=== PATIENT | female | born 1940 | race Caucasian/White ===

== ENCOUNTER 2019-08-06 11:49 | Outpatient (CLI) | payer MEDICARE, OTHER, SELFPAY ==
[2019-08-06 12:39] LABS: Calcium 10.6 mg/Dl (8.8-10.2)
[2019-08-06 14:12] LABS: Calcium 10.7 mg/dL (8.8-10.2); Parathyroid Hormone 76.9 pg/mL (15-65)
== END 2019-08-06 11:50 | disposition home or self-care (01) ==
LOC: LAB 11:57
PROVIDERS: Family Provider Nurse Practitioner; PCP Family Medicine
DX: Z01.89 Encounter for other specified special examinations (principal)
CPT/HCPCS: 36415; 82310; 83970

== ENCOUNTER 2019-08-19 10:36 | Outpatient (REF) | payer MEDICARE, OTHER, SELFPAY ==
[2019-08-19 10:59] LABS: Basophils # 0.1 10^3/uL (0.0-0.1); Basophils % 1.1 %; Eosinophils # 0.3 10^3/uL (0.0-0.8); Eosinophils % 4.5 %; Hemoglobin 12.7 g/dL (11.5-15.3); Lymphocytes # 2.2 10^3/uL (0.8-4.8); Lymphocytes % 35.1 %; Mean Corpuscular HGB Conc 32.6 g/dL (30.0-36.0); Mean Corpuscular Hemoglobin 26.8 pg (28.0-34.0); Mean Corpuscular Volume 82.5 fL (81-99); Mean Platelet Volume 10.6 fL (7.4-10.4); Monocytes # 0.5 10^3/uL (0.2-0.9); Monocytes % 7.8 %; Neutrophils # 3.2 10^3/uL (1.8-7.7); Neutrophils % 51.3 %; Nucleated Red Blood Cells % 0 %; Platelet Count 293 10^3/cmm (130-400); Red Blood Count 4.73 10^6/uL (4.1-5.3); Red Cell Distribution Width 15.4 % (12.1-15.1); White Blood Count 6.2 10^3/uL (4.0-10.0)
[2019-08-19 11:23] LABS: Anion Gap 16.3 (5-19); Blood Urea Nitrogen 25 mg/dL (8-23); Calcium 10.4 mg/Dl (8.8-10.2); Carbon Dioxide 25 mmol/L (22-29); Chloride 102 mmol/L (98-107); Glucose 180 mg/dL (74-106); Potassium 4.3 mmol/L (3.5-5.1); Sodium 139 mmol/L (136-145)
== END 2019-08-19 10:37 | disposition home or self-care (01) ==
LOC: LAB 10:36
PROVIDERS: Family Provider Nurse Practitioner; PCP Family Medicine; Visit Provider Family Medicine
DX: Z01.89 Encounter for other specified special examinations (principal)
CPT/HCPCS: 80048; 85025

== ENCOUNTER 2019-09-02 15:04 | Inpatient (IN) | payer MEDICARE, OTHER, SELFPAY ==
--- NOTE | 2019-09-02 15:13 | ED_ITS ---
Entered by Marry Hobbs, acting as scribe for HPI - General Adult General: Chief complaint: Neck Pain/Injury Stated complaint: POST OP INFECTION Time Seen by Provider: 09/02/19 15:09 Source: patient, family, EMS and RN notes reviewed Mode of arrival: EMS Limitations: no limitations History of Present Illness: HPI narrative: 79 yo female presents to ED with complaints of weakness. The patient had her thyroid and parathyroid removed 5 days ago at [facility] and her [id number] noticed she was weak and had what looks like infection draining around the patient's CHANTEL drain on the R side of her neck. The DIL said she was fine up until today. The DIL said anytime the patient gets an infection it will bother the patient's knees and make it to wher e she is unable to walk. The patient's oxygen was low (88) upon EMS arrival. The patient is not normally on oxygen. MD complaint: post op infection Onset (ago): hour(s) (this morning) Location: neck Radiation: non-radiation Severity: moderate Quality: dull and constant Pain Consistency: constant Relieving factors: none Exacerbating factors: none Associated symptoms: Reports weakness; Deny chest pain, confusion, diaphoresis, dyspnea, headache(s), malaise, nausea, rash, palpitations, syncope or vomiting Treatments prior to arrival: none Review of Systems General: Reports: other (negative unless marked) Const: Denies: fever, chills, body aches, fatigue, malaise or diaphoresis Eyes: Denies: change in vision or blurry vision ENMT: Denies: throat pain, painful swallowing, hoarseness, ear pain, ear discharge, Change in hearing or nasal discharge Card: Denies: chest pain, palpitations, irregular heart rhythm, syncope, pre- syncope, shortness of breath on exertion or shortness of breath when lying down Resp: Denies: shortness of breath, productive cough, non-productive cough, wheezing, coughing up blood or chest congestion GI: Denies: abdominal pain, nausea, vomiting, vomiting blood, coffee grounds in vomit, diarrhea, constipation, cramping, blood in stool or black tarry stool : Denies: flank pain, painful urination, urinary frequency, urinary urgency, decreased urine ouput, urinary incontinence or blood in urine Musc: Denies: neck pain, back pain, extremity pain, extremity swelling, joint pain, joint swelling, joint warmth or joint stiffness Skin/Breast: Denies: rash, skin tenderness or yellow skin Neuro: Denies: headache, numbness in extremities, changes in sensation, lack of coordination, difficulty walking, dizziness, vertigo or confusion Endo: Denies: excessive thirst, tired all the time, cold intolerance, excessive sweating, flushing or hot flashes Alex/Lymph: Denies: easy bruising, easy bleeding, petechiae or enlarged lymph nodes All/Imm: Denies: hives, throat swelling, tongue swelling, facial swelling or acute wheezing Physical Exam Const: COMMON NORMALS: no apparent distress, oriented x3, no limitations, healthy appearing and well nourished EXAM LIMITATIONS: no altered mental status GENERAL APPEARANCE: cooperative, well kempt and well developed ORIENTATION/CONSCIOUSNESS: Yes awake HENMT: COMMON NORMALS: normocephalic, head/scalp atraumatic, hearing grossly normal bilaterally, external ears normal, EAC's normal, external nose normal and moist oral mucous membranes HEAD & SCALP: normal to inspection, normocephalic and atraumatic FACE & SINUS: normal facial exam and face symmetric NOSE: external nose normal and nares normal EXTERNAL EAR: Yes external ears normal EXTERNAL AUDITORY CANAL: EAC's normal MOUTH: oral and palatal mucosa normal and tongue normal Eye: COMMON NORMALS: PERRL, EOMs intact bilaterally, conjunctivae normal and no scleral icterus GENERAL EYE: normal appearance of both eyes and normal light reflex CONJUNCTIVA: Yes conjunctivae normal SCLERA: sclerae normal CORNEA: Yes corneas normal PUPIL: Yes PERRL DIRECT OPHTHALMOSCOPY: Yes normal light reflex Neck/C-Spine: COMMON NORMALS: full ROM, no lymphadenopathy, supple, no meningeal signs and no JVD GENERAL: Yes normal visual inspection and Yes trachea midline THYROID: other (Incision site with localized erythema and minimal drainage. No crepitance or a large amount of drainage from the area. Drain itself looks good with only mild bloody serosanguineous drainage in the tu manuel.) CERVICAL SPINE: Yes cervical ROM normal Chest: COMMONS NORMALS: inspection of chest normal and palpation of chest normal Resp: COMMON NORMALS: normal respiratory effort, no retractions, no use of accessory muscles and clear to auscultation bilaterally EFFORT & INSPECTION: Yes able to speak in complete sentences AUSCULTATION: clear to auscultation bilaterally Cardio: COMMON NORMALS: no JVD, regular rate, regular rhythm, S1 normal heart sound, S2 normal heart sound, no gallops, no clicks, no murmurs and no rub JUGULAR VENOUS DISTENTION: no JVD RATE: regular rate RHYTHM: regular rhythm HEART SOUNDS: S1 normal and S2 normal GI: COMMON NORMALS: soft to palpation, non-tender, no hepatosplenomegaly and no masses INSPECTION: Yes normal to inspection PALPATION: Yes soft and Yes no hepatosplenomegaly : COMMON NORMALS: Yes no CVA tenderness BLADDER/KIDNEY EXAM: Yes no CVA tenderness Back/Pelvis: COMMON NORMALS: no CVA tenderness, thoracic and lumbar spine normal to inspection, no thoracic nor lumbar tenderness and thoraco-lumbar ROM normal Extremity: COMMON NORMALS: normal to inspection, full ROM, normal capillary refill, no joint enlargement, no clubbing, cyanosis or edema and no calf tenderness Neuro: COMMON NORMALS: oriented x3, CN's II-XII intact bilaterally, moves all extremities, no focal motor deficits and no sensory deficits noted MENINGEAL SIGNS: Yes no meningeal signs Psych: COMMON NORMALS: mental status grossly normal, thought process normal, cooperative, affect normal, speech normal and activity/motor behavior normal APPEARANCE: Yes well kempt SPEECH: Yes normal speech THOUGHT PROCESS: normal thought process Skin: COMMON NORMALS: no rashes or lesions noted, skin turgor normal, no jaundice, no petechiae and no mottling GENERAL SKIN EXAM: no rashes or lesions noted and turgor normal Course Vital Signs: Vital signs: Vital Signs Temperature 98.3 F 09/02/19 15:17 Pulse Rate 78 09/02/19 21:30 Respiratory Rate 18 09/02/19 22:57 Blood Pressure 205/87 09/02/19 21:30 Pulse Oximetry 94 09/02/19 22:57 MDM - General Adult MDM Narrative: Medical decision making narrative: The case was discussed with Dr. Mast, on-call for ENT. He states they have no availability to take the patient. The patient will need to be hospitalized here and can have ENT consult here as she was referred from Dr. Ochoa. I reviewed this plan with Dr. Swann who is in agreement. The patient is primary problem seems to be pneumonia but we will have ENT look at the patient as well. Further care be dictated by Dr. Swann. Lab Data: Labs: Lab Results 09/02/19 09/02/19 09/02/19 Range/Units 15:40 15:40 15:40 WBC 13.2 H (4.0-10.0) 10^3/ uL RBC 4.49 (4.1-5.3) 10^6/u L Hgb 11.7 (11.5-15.3) g/dL Hct 36.8 L (37.0-47.0) % MCV 82.0 (81-99) fL MCH 26.1 L (28.0-34.0) pg MCHC 31.8 (30.0-36.0) g/dL RDW 15.1 (12.1-15.1) % Plt Count 602 H (130-400) 10^3/c mm MPV 9.8 (7.4-10.4) fL Neut % (Auto) 77.6 % Lymph % (Auto) 11.8 % Parmer % (Auto) 8.6 % Eos % (Auto) 0.8 % Baso % (Auto) 0.4 % Neut # (Auto) 10.3 H (1.8-7.7) 10^3/u L Lymph # (Auto) 1.6 (0.8-4.8) 10^3/u L Parmer # (Auto) 1.1 H (0.2-0.9) 10^3/u L Eos # (Auto) 0.1 (0.0-0.8) 10^3/u L Baso # (Auto) 0.1 (0.0-0.1) 10^3/u L Nucleated RBC % (a uto) 0 % Nucleated RBCs # 0.0 /100WBC D-Dimer (0-0.59) ug/mIFE U Specimen Type Sample Site ABG pH (7.35-7.45) ABG pCO2 (35-45) mmHg ABG pO2 (80.0-100.0) mmH g ABG HCO3 (22-26) mmol/L ABG Base Excess (-2.0-2.0) mmol/ L Anibal Test Hematocrit (37-47) % O2 Delivery Device O2 Liters/Min % FiO2 % Palliative Care Physician ID Sodium 129 L (136-145) mmol/L Potassium 4.1 (3.5-5.1) mmol/L Chloride 93 L (98-107) mmol/L Carbon Dioxide 21 L (22-29) mmol/L Anion Gap 19.1 H (5-19) BUN 30 H (8-23) mg/dL Creatinine 1.5 H (0.5-0.9) mg/dL Glucose 415 H (65-115) mg/dL Lactic Acid 1.7 (0.5-2.2) mmol/L Calcium 7.2 L (8.5-10.5) mg/dL Total Bilirubin 0.3 (0.15-1.2) mg/dL AST 117 H (0-32) U/L ALT 68 H (0-33) U/L Alkaline Phosphata se 172 H (35-105) IU/L Total Protein 7.3 (6.6-8.7) g/dL Albumin 2.9 L (3.5-5.2) g/dL Globulin 4.4 (1.3-4.6) g/dL Urine Color (Yellow) Urine Appearance (CLEAR) Urine pH (5-7) Ur Specific Gravit y (1.005-1.030) Urine Protein (Negative) Urine Glucose (UA) (Normal) Urine Ketones (Negative) Urine Occult Blood (Negative) Urine Nitrate (Negative) Urine Bilirubin (NEGATIVE) Urine Urobilinogen (Negative) mg/dL Ur Leukocyte Maribel ase (Negative) Urine RBC (0-2) /hpf Urine WBC (0-5) /hpf Ur Squamous Epith Cells (0-5) Amorphous Sediment Urine Bacteria (NONE) Influenza Type A A g (Negative) POC Influenza B Ag (Negative) 09/02/19 09/02/19 09/02/19 Range/Units 15:40 16:17 16:31 WBC (4.0-10.0) 10^3/ uL RBC (4.1-5.3) 10^6/u L Hgb (11.5-15.3) g/dL Hct (37.0-47.0) % MCV (81-99) fL MCH (28.0-34.0) pg MCHC (30.0-36.0) g/dL RDW (12.1-15.1) % Plt Count (130-400) 10^3/c mm MPV (7.4-10.4) fL Neut % (Auto) % Lymph % (Auto) % Parmer % (Auto) % Eos % (Auto) % Baso % (Auto) % Neut # (Auto) (1.8-7.7) 10^3/u L Lymph # (Auto) (0.8-4.8) 10^3/u L Parmer # (Auto) (0.2-0.9) 10^3/u L Eos # (Auto) (0.0-0.8) 10^3/u L Baso # (Auto) (0.0-0.1) 10^3/u L Nucleated RBC % (a uto) % Nucleated RBCs # /100WBC D-Dimer 4.24 H (0-0.59) ug/mIFE U Specimen Type Arterial Sample Site Radial, left ABG pH 7.52 H (7.35-7.45) ABG pCO2 27.2 L (35-45) mmHg ABG pO2 61.9 L (80.0-100.0) mmH g ABG HCO3 22.2 (22-26) mmol/L ABG Base Excess 0.3 (-2.0-2.0) mmol/ L Anibal Test Pos Hematocrit 36.6 L (37-47) % O2 Delivery Device Nc O2 Liters/Min 1.5 % FiO2 26.0 % Palliative Care Physician ID cak Sodium (136-145) mmol/L Potassium (3.5-5.1) mmol/L Chloride (98-107) mmol/L Carbon Dioxide (22-29) mmol/L Anion Gap (5-19) BUN (8-23) mg/dL Creatinine (0.5-0.9) mg/dL Glucose (65-115) mg/dL Lactic Acid (0.5-2.2) mmol/L Calcium (8.5-10.5) mg/dL Total Bilirubin (0.15-1.2) mg/dL AST (0-32) U/L ALT (0-33) U/L Alkaline Phosphata se (35-105) IU/L Total Protein (6.6-8.7) g/dL Albumin (3.5-5.2) g/dL Globulin (1.3-4.6) g/dL Urine Color Yellow (Yellow) Urine Appearance Sl hazy (CLEAR) Urine pH 5 (5-7) Ur Specific Gravit y 1.010 (1.005-1.030) Urine Protein Neg (Negative) Urine Glucose (UA) 2+ (Normal) Urine Ketones Negative (Negative) Urine Occult Blood Neg (Negative) Urine Nitrate Negative (Negative) Urine Bilirubin Neg (NEGATIVE) Urine Urobilinogen Norm (Negative) mg/dL Ur Leukocyte Maribel ase Negative (Negative) Urine RBC None (0-2) /hpf Urine WBC None (0-5) /hpf Ur Squamous Epith Cells 5-10 H (0-5) Amorphous Sediment 2+ Urine Bacteria 1+ H (NONE) Influenza Type A A g (Negative) POC Influenza B Ag (Negative) 09/02/19 Range/Units 17:37 WBC (4.0-10.0) 10^3/ uL RBC (4.1-5.3) 10^6/u L Hgb (11.5-15.3) g/dL Hct (37.0-47.0) % MCV (81-99) fL MCH (28.0-34.0) pg MCHC (30.0-36.0) g/dL RDW (12.1-15.1) % Plt Count (130-400) 10^3/c mm MPV (7.4-10.4) fL Neut % (Auto) % Lymph % (Auto) % Parmer % (Auto) % Eos % (Auto) % Baso % (Auto) % Neut # (Auto) (1.8-7.7) 10^3/u L Lymph # (Auto) (0.8-4.8) 10^3/u L Parmer # (Auto) (0.2-0.9) 10^3/u L Eos # (Auto) (0.0-0.8) 10^3/u L Baso # (Auto) (0.0-0.1) 10^3/u L Nucleated RBC % (a uto) % Nucleated RBCs # /100WBC D-Dimer (0-0.59) ug/mIFE U Specimen Type Sample Site ABG pH (7.35-7.45) ABG pCO2 (35-45) mmHg ABG pO2 (80.0-100.0) mmH g ABG HCO3 (22-26) mmol/L ABG Base Excess (-2.0-2.0) mmol/ L Anibal Test Hematocrit (37-47) % O2 Delivery Device O2 Liters/Min % FiO2 % Palliative Care Physician ID Sodium (136-145) mmol/L Potassium (3.5-5.1) mmol/L Chloride (98-107) mmol/L Carbon Dioxide (22-29) mmol/L Anion Gap (5-19) BUN (8-23) mg/dL Creatinine (0.5-0.9) mg/dL Glucose (65-115) mg/dL Lactic Acid (0.5-2.2) mmol/L Calcium (8.5-10.5) mg/dL Total Bilirubin (0.15-1.2) mg/dL AST (0-32) U/L ALT (0-33) U/L Alkaline Phosphata se (35-105) IU/L Total Protein (6.6-8.7) g/dL Albumin (3.5-5.2) g/dL Globulin (1.3-4.6) g/dL Urine Color (Yellow) Urine Appearance (CLEAR) Urine pH (5-7) Ur Specific Gravit y (1.005-1.030) Urine Protein (Negative) Urine Glucose (UA) (Normal) Urine Ketones (Negative) Urine Occult Blood (Negative) Urine Nitrate (Negative) Urine Bilirubin (NEGATIVE) Urine Urobilinogen (Negative) mg/dL Ur Leukocyte Maribel ase (Negative) Urine RBC (0-2) /hpf Urine WBC (0-5) /hpf Ur Squamous Epith Cells (0-5) Amorphous Sediment Urine Bacteria (NONE) Influenza Type A A g Negative (Negative) POC Influenza B Ag Negative (Negative) Imaging Data^: CXR: Radiologist's impression: [address] [address] XRay Report Signed Patient: Jonnie Freitas #: [id number] : 1940Acct#:[id number] Age/Sex: 79 / FADM Date: 09/02/19 Loc: [facility]oom/Bed: Attending Dr: Ordering Provider/Ordering MD: Mayda German DO Date of Service: 09/02/19 Procedure(s): XR chest 1V portable [id number] Accession Number(s): [id number] Report Number: [id number] WS: [id number] CHEST XRAY TECHNIQUE: Portable chest. CLINICAL INFORMATION: cough COMPARISON: June 24, 2018 FINDINGS: Heart: Cardiomegaly with tortuous thoracic aorta. Right paratracheal mass me asuring 2.7 cm. Lungs: Chronic emphysematous changes. Slight bibasilar atelectasis. No focal pneumonia. Bones: Osteopenia. XR/XR chest 1V portable [id number] IMPRESSION: 1. Right paratracheal mass or lymphadenopathy measuring 1.9 cm appears similar to radiograph June 24, 2018. This can be followed up with chest CT. 2. Chronic emphysematous changes. No acute pulmonary infiltrates. 3. Slight bibasilar atelectasis. 4. Prior bilateral mastectomies. Dictated By:Oscar Osman MD Signed By:Oscar Osman MDSigned Date/Time:09/02/19 1557 DD/ CT Abd/Pel: Radiologist's impression: [place] [address] CT Scan Report Signed Patient: Jonnie Freitas #: [id number] : 1Acct#:[id number] Age/Sex: 79 / FADM Date: 09/02/19 Loc: [facility]/Bed: Attending Dr: Ordering Provider/Ordering MD: Mayda German DO Date of Service: 09/02/19 Procedure(s): CT angio chest w abd pel w con Accession Number(s): [id number] Report Number: [id number] PROCEDURE INFORMATION: Exam: CT Angiography Chest With Contrast Exam date and time: 09/02/2019 8:11 PM Age: 79 years old Clinical indication: Abdominal tenderness; Shortness of breath; Prior surgery; Surgery date: 3-7 days post-operative; Surgery type: Thyroid; Additional info: Dyspnea/postive d-dimer TECHNIQUE: Imaging protocol: Computed tomographic angiography of the chest with intravenous contrast. 3D rendering: MIP and/or 3D reconstructed images were created by the technologist. Total DLP: 1643 mGy-cm Radiation optimization: All CT scans at this facility use at least one of these dose optimization techniques: automated exposure control; mA and/or kV adjustment per patient size (includes targeted exams where dose is matched to clinical indication); or iterative reconstruction. Contrast material: VISI 320; Contrast volume: 95 ml; Contrast route: IV; COMPARISON: CT chest w con* [id number] 02/06/2019 2:11 PM FINDINGS: Pulmonary arteries: Normal. No pulmonary emboli. Aorta: Unremarkable. No aortic aneurysm. No aortic dissection. Lungs: There is bilateral lower lobe lung consolidation. No dominant lung mass. Pleural space: Unremarkable. No pneumothorax. No pleural effusion. Heart: Cardiomegaly is identified. Lymph nodes: Unremarkable. No enlarged lymph nodes. Bones/joints: Degenerative change is identified in the spine. There is no evidence for acute fracture or malalignment. Soft tissues: Unremarkable. IMPRESSION: There is no evidence for a pulmonary embolus. There is bilateral lower lobe lung consolidation consistent with atelectasis and/or pneumonia. PROCEDURE INFORMATION: Exam: CT Abdomen And Pelvis With Contrast Exam date and time: 09/02/2019 8:11 PM Age: 79 years old Clinical indication: Abdominal tenderness; Shortness of breath; Prior surgery; Surgery date: 3-7 days post-operative; Surgery type: Thyroid; Additional info: Dyspnea/postive d-dimer TECHNIQUE: Imaging protocol: Computed tomography of the abdomen and pelvis with intravenous contrast. Total DLP: 1643 mGy-cm Radiation optimization: All CT scans at this facility use at least one of these dose optimization techniques: automated exposure control; mA and/or kV adjustment per patient size (includes targeted exams where dose is matched to clinical indication); or iterative reconstruction. Contrast material: VISI 320; Contrast volume: 95 ml; Contrast route: IV; COMPARISON: CT chest w con* [id number] 02/06/2019 2:11 PM FINDINGS: Liver: Normal. No mass. Gallbladder and bile ducts: Gallstones are identified although there are no CT findings to suggest cholecystitis. Pancreas: Normal. No ductal dilation. Spleen: Normal. No splenomegaly. Adrenals: Normal. No mass. Kidneys and ureters: There is dilation of the bilateral renal pelvis and renal calices. No obstructing ureteral mass or calcification. Stomach and bowel: There is stool throughout the colon. No bowel obstruction or wall thickening. Appendix: The appendix is visualized and appears normal. Intraperitoneal space: Unremarkable. No free air. No significant fluid collection. Vasculature: Unremarkable. No abdominal aortic aneurysm. Lymph nodes: Unremarkable. No enlarged lymph nodes. Bladder: The bladder is moderately distended. No bladder mass or calcification. Reproductive: There has been a hysterectomy. Bones/joints: Degenerative change is identified in the spine. There is no evidence for acute fracture or malalignment. Soft tissues: Unremarkable. CT/CT angio chest w abd pel w con IMPRESSION: There is dilation of the bilateral renal pelvis and renal calices. This may be secondary to the moderately distended bladder.Clinical correlation is advised. Radiation Dose CTDIVOL = (mGy): DLP = 1643~1643 (mGy-cm) Dictated By:Carolin Mays MD Signed By:Carolin Mays MDSigned Date/Time:09/02/192142 DD/ Discharge Plan Discharge Patient Disposition: Placed in Observation Admit Provider: Joaquim Swann Clinical Impression: Sepsis, Pneumonia Condition: Stable Coding Level of Care Code ED Relay Checker for g Fwd The documentation recorded by the Anjel hollye Valerie R, accurately reflects the service I personally performed and the decisions made by Maxi maradiaga Eli N Sep 02, 2019 15:04
[2019-09-02 15:17] VITALS: BP 157/66; PULSE 79; RESP 24; TEMP 36.8; O2SAT 96; BMI 28.0
--- NOTE | 2019-09-02 15:17 | XR_ITS ---
WS: [id number] CHEST XRAY TECHNIQUE: Portable chest. CLINICAL INFORMATION: cough COMPARISON: June 24, 2018 FINDINGS: Heart: Cardiomegaly with tortuous thoracic aorta. Right paratracheal mass measuring 2.7 cm. Lungs: Chronic emphysematous changes. Slight bibasilar atelectasis. No focal pneumonia. Bones: Osteopenia. XR/XR chest 1V portable [id number] IMPRESSION: 1. Right paratracheal mass or lymphadenopathy measuring 1.9 cm appears similar to radiograph June 24, 2018. This can be followed up with chest CT. 2. Chronic emphysematous changes. No acute pulmonary infiltrates. 3. Slight bibasilar atelectasis. 4. Prior bilateral mastectomies.
[2019-09-02 15:46] LABS: Basophils # 0.1 10^3/uL (0.0-0.1); Basophils % 0.4 %; Eosinophils # 0.1 10^3/uL (0.0-0.8); Eosinophils % 0.8 %; Hematocrit 36.8 % (37.0-47.0); Hemoglobin 11.7 g/dL (11.5-15.3); Lymphocytes # 1.6 10^3/uL (0.8-4.8); Lymphocytes % 11.8 %; Mean Corpuscular HGB Conc 31.8 g/dL (30.0-36.0); Mean Corpuscular Hemoglobin 26.1 pg (28.0-34.0); Mean Platelet Volume 9.8 fL (7.4-10.4); Monocytes # 1.1 10^3/uL (0.2-0.9); Monocytes % 8.6 %; Neutrophils # 10.3 10^3/uL (1.8-7.7); Neutrophils % 77.6 %; Nucleated Red Blood Cells % 0 %; Platelet Count 602 10^3/cmm (130-400); Red Blood Count 4.49 10^6/uL (4.1-5.3); Red Cell Distribution Width 15.1 % (12.1-15.1); White Blood Count 13.2 10^3/uL (4.0-10.0)
[2019-09-02 16:02] LABS: Alanine Aminotransferase 68 U/L (0-33); Albumin Level 2.9 g/dL (3.5-5.2); Alkaline Phosphatase 172 IU/L (35-105); Anion Gap 19.1 (5-19); Aspartate Amino Transferase 117 U/L (0-32); Blood Urea Nitrogen 30 mg/dL (8-23); Calcium 7.2 mg/dL (8.5-10.5); Carbon Dioxide 21 mmol/L (22-29); Chloride 93 mmol/L (98-107); Globulin 4.4 g/dL (1.3-4.6); Potassium 4.1 mmol/L (3.5-5.1); Sodium 129 mmol/L (136-145); Total Bilirubin 0.3 mg/dL (0.15-1.2); Total Protein 7.3 g/dL (6.6-8.7)
[2019-09-02 16:03] LABS: Lactic Sepsis W/Reflex 1.7 mmol/L (0.5-2.2)
[2019-09-02 16:20] LABS: D Dimer 4.24 ug/mIFEU (0-0.59)
[2019-09-02 16:42] LABS: ABG PCO2 27.2 mmHg (35-45); ABG PH Result 7.52 (7.35-7.45); Arterial Blood Gas Hematocrit 36.6 % (37-47); Base Excess ABG 0.3 mmol/L (-2.0-2.0); Blood Gas Allen Test Pos; Blood Gas LPM 1.5 %; Blood Gas Sample Site Radial, left; Blood Gas Sample Type Arterial; HCO3 ABG 22.2 mmol/L (22-26); Oxygen Device NC; PO2 ABG 61.9 mmHg (80.0-100.0)
[2019-09-02 18:31] LABS: Bilirubin Urine Neg (NEGATIVE); Blood Urine Neg (Negative); Glucose Urine UA 2+ (Normal); Ketones Urine Negative (Negative); Leukocyte Esterase Urine Negative (Negative); Nitrate Urine Negative (Negative); Protein Urine Neg (Negative); Urine Appearance SL Hazy (CLEAR); Urine Color Yellow (Yellow); Urobilinogen Urine Norm (Negative); pH Urine 5 (5-7)
--- NOTE | 2019-09-02 18:34 | CTR_ITS ---
PROCEDURE INFORMATION: Exam: CT Angiography Chest With Contrast Exam date and time: 09/02/2019 8:11 PM Age: 79 years old Clinical indication: Abdominal tenderness; Shortness of breath; Prior surgery; Surgery date: 3-7 days post-operative; Surgery type: Thyroid; Additional info: Dyspnea/postive d-dimer TECHNIQUE: Imaging protocol: Computed tomographic angiography of the chest with intravenous contrast. 3D rendering: MIP and/or 3D reconstructed images were created by the technologist. Total DLP: 1643 mGy-cm Radiation optimization: All CT scans at this facility use at least one of these dose optimization techniques: automated exposure control; mA and/or kV adjustment per patient size (includes targeted exams where dose is matched to clinical indication); or iterative reconstruction. Contrast material: VISI 320; Contrast volume: 95 ml; Contrast route: IV; COMPARISON: CT chest w con* [id number] 02/06/2019 2:11 PM FINDINGS: Pulmonary arteries: Normal. No pulmonary emboli. Aorta: Unremarkable. No aortic aneurysm. No aortic dissection. Lungs: There is bilateral lower lobe lung consolidation. No dominant lung mass. Pleural space: Unremarkable. No pneumothorax. No pleural effusion. Heart: Cardiomegaly is identified. Lymph nodes: Unremarkable. No enlarged lymph nodes. Bones/joints: Degenerative change is identified in the spine. There is no evidence for acute fracture or malalignment. Soft tissues: Unremarkable. IMPRESSION: There is no evidence for a pulmonary embolus. There is bilateral lower lobe lung consolidation consistent with atelectasis and/or pneumonia. PROCEDURE INFORMATION: Exam: CT Abdomen And Pelvis With Contrast Exam date and time: 09/02/2019 8:11 PM Age: 79 years old Clinical indication: Abdominal tenderness; Shortness of breath; Prior surgery; Surgery date: 3-7 days post-operative; Surgery type: Thyroid; Additional info: Dyspnea/postive d-dimer TECHNIQUE: Imaging protocol: Computed tomography of the abdomen and pelvis with intravenous contrast. Total DLP: 1643 mGy-cm Radiation optimization: All CT scans at this facility use at least one of these dose optimization techniques: automated exposure control; mA and/or kV adjustment per patient size (includes targeted exams where dose is matched to clinical indication); or iterative reconstruction. Contrast material: VISI 320; Contrast volume: 95 ml; Contrast route: IV; COMPARISON: CT chest w con* [id number] 02/06/2019 2:11 PM FINDINGS: Liver: Normal. No mass. Gallbladder and bile ducts: Gallstones are identified although there are no CT findings to suggest cholecystitis. Pancreas: Normal. No ductal dilation. Spleen: Normal. No splenomegaly. Adrenals: Normal. No mass. Kidneys and ureters: There is dilation of the bilateral renal pelvis and renal calices. No obstructing ureteral mass or calcification. Stomach and bowel: There is stool throughout the colon. No bowel obstruction or wall thickening. Appendix: The appendix is visualized and appears normal. Intraperitoneal space: Unremarkable. No free air. No significant fluid collection. Vasculature: Unremarkable. No abdominal aortic aneurysm. Lymph nodes: Unremarkable. No enlarged lymph nodes. Bladder: The bladder is moderately distended. No bladder mass or calcification. Reproductive: There has been a hysterectomy. Bones/joints: Degenerative change is identified in the spine. There is no evidence for acute fracture or malalignment. Soft tissues: Unremarkable. CT/CT angio chest w abd pel w con IMPRESSION: There is dilation of the bilateral renal pelvis and renal calices. This may be secondary to the moderately distended bladder.Clinical correlation is advised. Radiation Dose CTDIVOL = (mGy): DLP = 1643~1643 (mGy-cm)
--- NOTE | 2019-09-02 18:35 | US_ITS ---
WS: [id number] RIGHT UPPER QUADRANT ULTRASOUND HISTORY: Pain COMPARISON: CT 09/02/2019 Liver: 19.7 cm in length. Liver is moderately enlarged with hepatic steatosis. No mass or bile duct d ilatation. Gallbladder: Gallbladder is poorly visualized. On the recent CT there is a large stone in the gallbla dder which could be obscuring the lumen of the gallbladder. CBD: 2.9 mm Pancreas: Head and tail are not visualized. The body is normal. Right kidney: 10.0 cm in length. Normal echogenicity with no mass or hydronephrosis. Aorta and IVC: Unremarkable. No ascites. US/US gall bladder [id number] IMPRESSION: 1. Gallbladder is not identified by ultrasound. On the CT of 09/02/2019 gallblad martina is present with a large stone. Stone may be obscuring the ultrasound evalua tion. 2. Mild hepatic steatosis and hepatomegaly.
[2019-09-02 18:40] LABS: Add Urine Culture? No; Amorphous Sediment Urine 2+; Bacteria Urine 1+
[2019-09-02 18:46] LABS: Influenza A by IFA Negative (Negative); Influenza B by IFA Negative (Negative)
[2019-09-02 19:38] VITALS: BP 159/70; PULSE 75; RESP 25; O2SAT 93
[2019-09-02] MEDS: cefepime 2,000 MG in sodium chloride 0.9% (plus) 50 ML 100 MG IV (19:54)
[2019-09-02] MEDS: sodium chloride 0.9% 1,000 ML 999 ML IV (19:55)
[2019-09-02] MEDS: vancomycin 1,000 MG in sodium chloride 0.9% 250 ML 166 MG IV (20:17)
[2019-09-02] MEDS: iodixanol 320 mg/mL 100mL Btl 95 ML IV (21:01)
[2019-09-02 21:30] VITALS: BP 205/87; PULSE 78; RESP 18; RESP 22; O2SAT 92
[2019-09-02] MEDS: morphine 4 mg/mL SDV 1 mL IVP (21:30)
[2019-09-02] MEDS: ondansetron 2 mg/ML SDV 2 mL 4 MG IVP (21:30)
[2019-09-02] MEDS: calcium gluconate 0.1 gm/mL 10% SDV 10mL 1 GM IVP (22:05)
--- NOTE | 2019-09-02 22:46 | ECG_ITS ---
Measurements Intervals [place] Rate: 74 P: 38 TN: 204 QRS: -37 QRSD: 98 T: -31 QT: 406 QTc: 451 SINUS RHYTHM LEFT AXIS DEVIATION [QRS AXIS < -30] INCOMPLETE RIGHT BUNDLE BRANCH BLOCK [90+ ms QRS DURATION, TERMINAL R IN V1/V2, 40+ ms S IN I/aVL/V4/V5/V6] NONSPECIFIC ST & T-WAVE ABNORMALITY Compared to ECG 03/17/2019 11:58:09 Left ventricular hypertrophy no longer present Possible ischemia no longer present T-wave abnormality still present Electronically Signed On 09-03-2019 9:28:33 RETAIL TRAINING MANAGER by Danie Mi M.D. [id number] peterson
[2019-09-02 22:57] VITALS: RESP 18; O2SAT 94
[2019-09-02] MEDS: HYDROmorphone 1 mg/mL INJ 1 mL 0.5 MG IVP (22:57)
[2019-09-02 23:21] VITALS: BP 159/90; PULSE 74; RESP 19; TEMP 37.4; O2SAT 95
[2019-09-02 23:29] LABS: Troponin(5th) Baseline 45 ng/mL (0-10)
[2019-09-02 23:56] VITALS: BP 168/76; PULSE 71; RESP 24; TEMP 36.9; O2SAT 91
[2019-09-03] VITALS (9 sets, daily range): BP systolic 97–159; BP diastolic 46–65; PULSE 53–77; RESP 12–29; TEMP 36.6–36.9; O2SAT 91–95
--- NOTE | 2019-09-03 00:23 | PM.HP ---
Providers/Chief Complaint Admitting Physician: Joaquim Swann MD Primary Care Provider: Onel Rodriguez DO Chief Complaint: Sepsis;Pneumonia:hypoxia History of Present Illness Brandy Freitas is a 79 year old female with a past medical history of type 2 diabetes mellitus, hypertension, gout, neuropathy, B12 deficiency with recent history of thyroidectomy and parathyroidectomy for a thyroid mass who presents to the emergency room due to complaints of weakness, fatigue, poor appetite, malaise, and feeling unwell. Patient states that she returned from [facility] days ago after getting a thyroidectomy and parathyroidectomy for a thyroid mass, had a CHANTEL drain in place, states that the CHANTEL drain has very minimal output. Patient states that since her surgery she just has not been feeling well, has generalized fatigue, weakness, malaise, poor appetite, has not been drinking well. Patient denies fevers. Does report chills. Patient denies shortness of breath. Denies cough. Denies chest pain. Denies abdominal pain. Does report constipation. Denies bloody or black stools. Denies dysuria or hematuria. Denies falls. Does report lightheadedness and dizziness. No sinus congestion, no upper respiratory tract infection symptoms. Patient states that she is unsure of the pathology results from the surgery, denies having parathyroid transplantation for her thyroidectomy, states that she had a parathyroidectomy for hyperparathyroidism and parathyroid adenoma? Denies neck pain, denies pain with range of motion, denies difficulty swallowing, denies trismus. Review of Systems Const: Denies: fever, chills, fatigue or malaise Eyes: Denies: change in vision or blurry vision ENMT: Denies: nasal congestion Resp: Denies: shortness of breath, productive cough, non-productive cough or wheezing GI: Denies: abdominal pain, nausea, vomiting, vomiting blood, diarrhea, constipation, blood in stool or black tarry stool : Denies: flank pain, painful urination or urinary frequency Musc: Denies: neck pain or back pain Skin/Breast: Denies: rash Neuro: Denies: headache, dizziness or vertigo Psych: Denies: anxiety or depression Endo: Denies: excessive urination or excessive thirst Medications/Allergies Home Medications Medication Instructions Recorded Confirmed Last Taken Type allopurinol 100 mg PO DAILY 09/03/19 09/03/19 09/02/19 08:00 History calcium carbonate [Oyster Shell 500 mg PO TID 09/03/19 09/03/19 09/02/19 12:00 History Calcium 500] carvedilol 6.25 mg PO BID 09/03/19 09/03/19 09/02/19 08:00 History cyanocobalamin (vitamin B-12) 1,000 mcg PO DAILY 09/03/19 09/03/19 09/02/19 08:00 History [Vitamin B-12] enalapril maleate 20 mg PO BID 09/03/19 09/03/19 09/02/19 08:00 History felodipine 10 mg PO DAILY 09/03/19 09/03/19 09/02/19 08:00 History gabapentin 300 mg PO BID 09/03/19 09/03/19 09/02/19 08:00 History glipizide 10 mg PO DAILY 09/03/19 09/03/19 09/02/19 08:00 History lovastatin 10 mg PO QPM 09/03/19 09/03/19 09/01/19 20:00 History warfarin See Rx Instructions .ROUTE .COMPLEX 09/03/19 09/03/19 Unknown History warfarin See Rx Instructions .ROUTE .COMPLEX 09/03/19 09/03/19 08/31/19 20:00 History Allergies Allergy/AdvReac Type Severity Reaction Status Date / Time Sulfa (Sulfonamide Allergy Unknown Verified 09/02/19 19:36 Antibiotics) tape Allergy Unknown Uncoded 09/02/19 19:36 PFSH Acute PFSH: Statuses (acute, chronic, etc) shown below reflect problem list status as previously entered and may not be historically accurate Medical History (Updated 09/03/19 @ 00:36 by Joaquim Swann MD) DVT (deep venous thrombosis) (Acute) Gout (Acute) Hypertension (Acute) Type 2 diabetes mellitus (Acute) Surgical History (Updated 09/03/19 @ 00:36 by Joaquim Swann MD) H/O mastectomy (Acute) H/O parathyroidectomy (Acute) H/O thyroidectomy (Acute) Family History (Updated 09/03/19 @ 00:32 by Joaquim Swann MD) Other Diabetes Social History (Updated 09/03/19 @ 00:32 by Joaquim Swann MD) Smoking and tobacco status: never smoked Alcohol intake: never Substance/Drug Use: never Vitals/I&O/Wt Last Vital Signs Temp 98.5 F 09/02/19 23:56 Pulse 71 09/02/19 23:56 Resp 24 H 09/02/19 23:56 BP 168/76 09/02/19 23:56 Pulse Ox 91 09/02/19 23:56 09/02/19 09/02/19 09/03/19 14:59 22:59 06:59 Intake Total 1300 / 1300 Balance 1300 / 1300 Weight last 48 hrs Weight 86.183 kg Weight 86.183 kg Physical Exam Const: COMMON NORMALS: no apparent distress and oriented x3 GENERAL APPEARANCE: cooperative and comfortable HENMT: COMMON NORMALS: normocephalic HEAD & SCALP: normocephalic Eye: COMMON NORMALS: PERRL, EOMs intact bilaterally and no papilledema GENERAL EYE: normal appearance of both eyes PUPIL: Yes PERRL DIRECT OPHTHALMOSCOPY: Yes no papilledema Neck/C-Spine: COMMON NORMALS: full ROM, no lymphadenopathy, no JVD and thyroid normal THYROID: thyroid normal OTHER: Right CHANTEL drain in place, with surrounding minimal erythema Lymph: LYMPHATIC: no lymphadenopathy noted Resp: COMMON NORMALS: normal respiratory effort, no retractions, no use of accessory muscles and clear to auscultation bilaterally AUSCULTATION: clear to auscultation bilaterally Cardio: COMMON NORMALS: no JVD, regular rate, regular rhythm, S1 normal heart sound, S2 normal heart sound, no gallops, no clicks and no murmurs RATE: regular rate RHYTHM: regular rhythm HEART SOUNDS: S1 normal and S2 normal GI: COMMON NORMALS: normal to inspection, nondistended, normoactive bowel sounds, soft to palpation, non-tender and no hepatosplenomegaly PALPATION: Yes soft and Yes no hepatosplenomegaly Extremity: COMMON NORMALS: normal to inspection, full ROM and no pedal edema Neuro: COMMON NORMALS: oriented x3, CN's II-XII intact bilaterally, moves all extremities and no focal motor deficits Psych: COMMON NORMALS: mental status grossly normal, thought process normal and cooperative THOUGHT PROCESS: normal thought process Urinary Catheter Management^: 2-way Urethral: Cath Placed During This Visit: yes Urethral Indwelling: No Reason for Continuing Indwelling Catheter: Accurate Measurement of Urinary Output in Critically Ill Patients Urinary Catheter Date of Insertion: 09/02/19 Urinary Catheter Time of Insertion: 22:01 Data : 09/02/19 15:40 09/02/19 15:40 Micro: Microbiology 09/02/19 15:40 Blood Culture - Preliminary Blood SPECIMEN COLLECTED 09/02/19 15:30 Blood Culture - Preliminary Blood SPECIMEN COLLECTED A&P Assessment and plan (1) H/O thyroidectomy: -Patient had a thyroidectomy and parathyroidectomy 5 days ago at [facility] for a thyroid mass bilaterally -Patient is unsure about the details of the surgery, nor does she know the pathology results -No parathyroid transplantation -Patient was supposed to go back to [facility] tomorrow -Patient has a CHANTEL drain in place -Minimal drainage over the last few days Plan: -Patient had a CT Carrol of the chest, unfortunate CT of the neck was not obtained to rule out underlying abscess as a source of infection -We will have the morning team call radiology and see if neck him evaluated on CT Carrol of the chest -If not I have ordered a CT of the neck with contrast to evaluate for underlying abscess for tomorrow (I will limit the amount of contrast exposure) -Patient is on vancomycin and Zosyn, inflammatory markers are pending -we will see if morning team can contact Dr. Messer or Dr. Ochoa to have CHANTEL drain removed - Status: Acute Code(s): Z90.09 - Acquired absence of other part of head and neck (2) H/O parathyroidectomy: Status: Acute Code(s): Z90.09 - Acquired absence of other part of head and neck (3) Pneumonia: -White blood cell count 13.2, -Inflammatory markers pending -CT angios shows bibasilar atelectasis, possible pneumonia -Patient has recent hospitalization for parathyroidectomy and thyroidectomy and partial hospital -Oxygen saturations were in the 80s on presentation -But does not complain of shortness of breath, nor cough Plan -Receiving vancomycin and Zosyn -Blood cultures -Monitor respiratory status, monitor vitals Status: Acute Qualifiers: Laterality: bilateral Lung location: lower lobe of lung Pneumonia type: due to unspecified organism Qualified Code(s): J18.9 - Pneumonia, unspecified organism Code(s): J18.9 - Pneumonia, unspecified organism (4) Sepsis: Status: Acute Qualifiers: Sepsis acute organ dysfunction status: unspecified Sepsis type: sepsis due to unspecified organism Qualified Code(s): A41.9 - Sepsis, unspecified organism Code(s): A41.9 - Sepsis, unspecified organism (5) Hypocalcemia: Calcium 7.2 On calcium carbonate Monitor calcium, no EKG changes, no evidence of muscle spasms Status: Acute Code(s): E83.51 - Hypocalcemia (6) Type 2 diabetes mellitus: Low-dose sliding scale Status: Acute Code(s): E11.9 - Type 2 diabetes mellitus without complications (7) DVT (deep venous thrombosis): Continue Coumadin Status: Acute Code(s): I82.409 - Acute embolism and thrombosis of unspecified deep veins of unspecified lower extremity (8) Gout: Status: Acute Code(s): M10.9 - Gout, unspecified (9) Hypertension: Status: Acute Code(s): I10 - Essential (primary) hypertension (10) Acute kidney injury: Secondary to dehydration Continue normal saline Status: Acute Code(s): N17.9 - Acute kidney failure, unspecified Attestations Medical Necessity Statement*: Patient requires hospitalization, outpatient with observation, pneumonia Coding Level of Care Code Acute Sandblast Or Shotblast Equipment Tender for Chg Fwd Diagnoses H/O thyroidectomy Z90.09 H/O parathyroidectomy Z90.09 Pneumonia J18.9 Laterality: bilateral Lung location: lower lobe of lung Pneumonia type: due to unspecified organism Sepsis A41.9 Sepsis acute organ dysfunction status: unspecified Sepsis type: sepsis due to unspecified organism Hypocalcemia E83.51 Type 2 diabetes mellitus E11.9 DVT (deep venous thrombosis) I82.409 Gout M10.9 Hypertension I10 Acute kidney injury N17.9
[2019-09-03] MEDS: sodium chloride 0.9% 1,000 ML 100 ML IV (00:42)
--- NOTE | 2019-09-03 00:46 | ECG_ITS ---
Measurements Intervals [place] Rate: 74 P: 38 [place]: 204 QRS: -37 QRSD: 98 T: -31 QT: 406 QTc: 451 SINUS RHYTHM LEFT AXIS DEVIATION [QRS AXIS < -30] INCOMPLETE RIGHT BUNDLE BRANCH BLOCK [90+ ms QRS DURATION, TERMINAL R IN V1/V2, 40+ ms S IN I/aVL/V4/V5/V6] NONSPECIFIC ST & T-WAVE ABNORMALITY Compared to ECG 03/17/2019 11:58:09 Left ventricular hypertrophy no longer present Possible ischemia no longer present T-wave abnormality still present Electronically Signed On 09-03-2019 9:30:40 PIPELAYING FITTER by Danie Mi M.D. [id number] peterson
--- NOTE | 2019-09-03 00:49 | PC.PHAR ---
Vancomycin is dosed at 1gm IVPB every 48 hours to produce a predicted trough level of 13.61 (population based pharmacokinetic analysis). A trough level has been ordered from the lab to be obtaine before the third dose to confirm and adjut if needed. The Zosyn is dosed at 3.375gm IVPB every 8 hours, each dose to be infused over 4 hours per extended infusion protocol.
[2019-09-03] MEDS: piperacillin-tazobactam 3.375 GM in sodium chloride 0.9% (plus) 50 ML IV ×3 (00:51→17:40)
[2019-09-03 01:06] LABS: Troponin 5 2HR 41.97 ng/mL (0-10)
[2019-09-03 01:08] LABS: Troponin 5 2HR Delta -3.03 ABS# (0-10)
[2019-09-03] MEDS: morphine 4 mg/mL SDV 1 mL IVP ×2 (04:05→09:55)
[2019-09-03 04:43] LABS: Basophils # 0.1 10^3/uL (0.0-0.1); Basophils % 0.5 %; Eosinophils # 0.2 10^3/uL (0.0-0.8); Eosinophils % 1.6 %; Hematocrit 33.2 % (37.0-47.0); Hemoglobin 10.6 g/dL (11.5-15.3); Lymphocytes # 1.9 10^3/uL (0.8-4.8); Lymphocytes % 15.3 %; Mean Corpuscular HGB Conc 31.9 g/dL (30.0-36.0); Mean Corpuscular Hemoglobin 26.1 pg (28.0-34.0); Mean Corpuscular Volume 81.8 fL (81-99); Mean Platelet Volume 10.1 fL (7.4-10.4); Monocytes # 1.1 10^3/uL (0.2-0.9); Monocytes % 9.1 %; Neutrophils # 8.9 10^3/uL (1.8-7.7); Neutrophils % 72.8 %; Nucleated Red Blood Cells % 0 %; Platelet Count 498 10^3/cmm (130-400); Red Blood Count 4.06 10^6/uL (4.1-5.3); Red Cell Distribution Width 15.2 % (12.1-15.1); White Blood Count 12.2 10^3/uL (4.0-10.0)
--- NOTE | 2019-09-03 04:46 | ECG_ITS ---
Measurements Intervals [place] Rate: 73 P: -6 CO: 222 QRS: -33 QRSD: 79 T: -57 QT: 387 QTc: 427 SINUS RHYTHM WITH FIRST DEGREE AV BLOCK INFERIOR MYOCARDIAL INFARCTION [40+ ms Q WAVE AND/OR ST/T ABNORMALITY IN II/aVF], OF INDETERMINATE AGE WITH POSTERIOR EXTENSION Compared to ECG 03/17/2019 11:58:09 First degree AV block now present Myocardial infarct finding now present Left-axis deviation no longer present Incomplete right bundle-branch block no longer present Left ventricular hypertrophy no longer present T-wave abnormality no longer present Possible ischemia no longer present Electronically Signed On 09-03-2019 9:31:17 MELTER HELPER by Danie Mi M.D. [id number]
[2019-09-03 05:01] LABS: INR 3.51 (0.8-1.2)
[2019-09-03 05:13] LABS: Anion Gap 18.1 (5-19); Blood Urea Nitrogen 19 mg/dL (8-23); Calcium 6.9 mg/dL (8.5-10.5); Carbon Dioxide 22 mmol/L (22-29); Chloride 99 mmol/L (98-107); Glucose 242 mg/dL (65-115); Osmolality Calculated 284 mOsm/kg (285-295); Potassium 4.1 mmol/L (3.5-5.1); Sodium 135 mmol/L (136-145); Troponin 5 6HR 39.13 ng/L (0-10)
[2019-09-03 05:14] LABS: Troponin 5 6HR Delta -5.87 ng/L (0-12)
--- NOTE | 2019-09-03 06:31 | PC.NURSE ---
Patient arrived to unit at ~2245 from ed via stretcher. Slid patient across times 3 assist from stretcher to bed. Admission assessments as documented. On arrival observed patient to have redness with broken skin to sacrum at gluteal cleft and area to right buttock with broken skin that is pink in color. Applied a liberal amount of Aloe [place] to affected areas. Patient stated, that is what I have been doing to those areas. Patient lives with son and he provides care to mom. Patient is ~ 7 days s/p thyroidectomy and has a CHANTEL drain in place with minimal drainage. Patient stated, there has not been much drainage over the last few day. Incision is currently red and inflamed. No purulent drainage or foul odor detected. is aware and has been in to see patient.
[2019-09-03 06:42] LABS: Glucose Point of Care 209 mg/dL (70-110)
[2019-09-03] MEDS: calcium carbonate 500 mg Chew Tablet PO ×3 (08:39→22:16)
[2019-09-03] MEDS: gabapentin 300 mg Capsule PO ×2 (08:39→17:42)
[2019-09-03] MEDS: carvedilol 6.25 mg Tablet PO ×2 (08:39→22:16)
[2019-09-03] MEDS: cyanocobalamin 1,000 mcg Tablet 1000 MCG PO (08:39)
[2019-09-03] MEDS: allopurinol 100 mg Tablet PO (08:40)
[2019-09-03] MEDS: acetaminophen 325 mg Tablet 650 MG PO (08:51)
[2019-09-03 08:59] LABS: Glucose 415 mg/dL (65-115)
--- NOTE | 2019-09-03 10:15 | PM.PN ---
Subjective Subjective: Interval history: Patient reports pain all over this morning. Reports that 2 days ago her symptoms started which included also generalized weakness. She reports chronic bilateral knee pains and some lower extremity pains which appears to be exacerbated in the last 2 days. She denies shortness of breath or chest pain. Denies abdominal pain. She has post thyroidectomy drain with erythema around insertion site. She was started on Zosyn and vancomycin. Vitals/I&O/Wt Last Vital Signs Temp 97.9 F 09/03/19 07:31 Pulse 60 09/03/19 07:31 Resp 24 H 09/03/19 09:55 BP 138/59 09/03/19 07:31 Pulse Ox 93 09/03/19 09:55 09/02/19 09/03/19 09/03/19 22:59 06:59 14:59 Intake Total 1300 / 1300 186.667 / 1486.667 240 / 240 Output Total 1100 / 1100 Balance 1300 / 1300 -913.333 / 386.667 240 / 240 Weight last 48 hrs Weight 86.183 kg Weight 86.183 kg Physical Exam Const: COMMON NORMALS: no apparent distress and oriented x3 Resp: COMMON NORMALS: normal respiratory effort and clear to auscultation bilaterally AUSCULTATION: clear to auscultation bilaterally Cardio: COMMON NORMALS: regular rate, regular rhythm and S2 normal heart sound RATE: regular rate RHYTHM: regular rhythm and abnormal rhythm HEART SOUNDS: S2 normal BRUITS: no carotid bruits OTHER: No lower extremity edema GI: COMMON NORMALS: normal to inspection, nondistended, normoactive bowel sounds, soft to palpation and non-tender PALPATION: Yes soft Neuro: COMMON NORMALS: oriented x3 and no focal motor deficits Urinary Catheter Management^: 2-way Urethral: Cath Placed During This Visit: yes Urethral Indwelling: No Reason for Continuing Indwelling Catheter: Accurate Measurement of Urinary Output in Critically Ill Patients Urinary Catheter Date of Insertion: 09/02/19 Urinary Catheter Time of Insertion: 22:01 Data : 09/03/19 04:30 09/03/19 04:30 Micro: Microbiology 09/02/19 15:40 Blood Culture - Preliminary Blood SPECIMEN COLLECTED 09/02/19 15:30 Blood Culture - Preliminary Blood SPECIMEN COLLECTED A&P Assessment and plan (1) H/O thyroidectomy: -Patient had a thyroidectomy and parathyroidectomy 5 days ago at [facility] for a thyroid mass bilaterally -Patient is unsure about the details of the surgery, nor does she know the pathology results -No parathyroid transplantation -Patient was supposed to go back to [facility] tomorrow -Patient has a CHANTEL drain in place -Minimal drainage over the last few days Plan: -Patient had a CT Carrol of the chest, unfortunate CT of the neck was not obtained to rule out underlying abscess as a source of infection -We will have the morning team call radiology and see if neck him evaluated on CT Carrol of the chest -If not I have ordered a CT of the neck with contrast to evaluate for underlying abscess for tomorrow (I will limit the amount of contrast exposure) -Patient is on vancomycin and Zosyn, inflammatory markers are pending -Discussed case with Dr. Ochoa who will see patient in consultation to remove drain. - Status: Acute Code(s): Z90.09 - Acquired absence of other part of head and neck (2) H/O parathyroidectomy: Status: Acute Code(s): Z90.09 - Acquired absence of other part of head and neck (3) Pneumonia: -White blood cell count 13.2, -Inflammatory markers pending -CT angios shows bibasilar atelectasis, possible pneumonia -Patient has recent hospitalization for parathyroidectomy and thyroidectomy and partial hospital -Oxygen saturations were in the 80s on presentation -But does not complain of shortness of breath, nor cough Plan -Receiving vancomycin and Zosyn -Blood cultures -Monitor respiratory status, monitor vitals Status: Acute Qualifiers: Laterality: bilateral Lung location: lower lobe of lung Pneumonia type: due to unspecified organism Qualified Code(s): J18.9 - Pneumonia, unspecified organism Code(s): J18.9 - Pneumonia, unspecified organism (4) Sepsis: Status: Acute Qualifiers: Sepsis acute organ dysfunction status: unspecified Sepsis type: sepsis due to unspecified organism Qualified Code(s): A41.9 - Sepsis, unspecified organism Code(s): A41.9 - Sepsis, unspecified organism (5) Hypocalcemia: Calcium 7.2 On calcium carbonate Monitor calcium, no EKG changes, no evidence of muscle spasms Status: Acute Code(s): E83.51 - Hypocalcemia (6) Type 2 diabetes mellitus: Low-dose sliding scale Status: Acute Code(s): E11.9 - Type 2 diabetes mellitus without complications (7) DVT (deep venous thrombosis): Continue Coumadin but skip today's dose. Today patient is supposed to receive 2 mg warfarin and dosing will be corrected. Status: Acute Code(s): I82.409 - Acute embolism and thrombosis of unspecified deep veins of unspecified lower extremity (8) Gout: Status: Acute Code(s): M10.9 - Gout, unspecified (9) Hypertension: Status: Acute Code(s): I10 - Essential (primary) hypertension (10) Acute kidney injury: Secondary to dehydration Continue normal saline Status: Acute Code(s): N17.9 - Acute kidney failure, unspecified Attestations Medical Necessity Statement*: Patient post thyroidectomy with pneumonia and generalized pain and weakness requires close inpatient monitoring and treatment Time Spent in Patient Care: 16 - 35 minutes Coding Level of Care Code Acute [employer] Teacher for Chg Fwd Exam Problem Focused Diagnoses H/O thyroidectomy Z90.09 H/O parathyroidectomy Z90.09 Pneumonia J18.9 Laterality: bilateral Lung location: lower lobe of lung Pneumonia type: due to unspecified organism Sepsis A41.9 Sepsis acute organ dysfunction status: unspecified Sepsis type: sepsis due to unspecified organism Hypocalcemia E83.51 Type 2 diabetes mellitus E11.9 DVT (deep venous thrombosis) I82.409 Gout M10.9 Hypertension I10 Acute kidney injury N17.9
--- NOTE | 2019-09-03 10:57 | PC.CHAP ---
Pastoral Care Encounter/Spiritual Assessment Type of Contact [] Declined burial vault setter visit [] Patient/Family/Request visit [] Outpatient visit [] Follow-up visit [] Physician referral [] Code/Alert [x] Routine visit [] Staff referral [] Actively dying [] Patient sleeping [] Family support [] [] Out of room [] Palliative care [] [] Receiving care in room [] Pre-surgical visit [] Trauma [] Long length of stay [] ICU visit [] Other: Relational/Emotional Strength [] Patient feels connected with others/family/visitors/staff [] Distress [] Loneliness/isolation [] Abandonment Spirituality of Patient [x] Person of Natasha [] Attends Mu-Ism of their Natasha [x] Believes in Prayer [] Reads Bible or Yarsanism materials [] There are Spiritual issues to be addressed Surgery Attendant Interventions [x] Prayer [] Active listening [] Non-anxious presence [] Spiritual/emotional support [] Crisis/trauma care [] Spiritual counseling [] Bereavement support [] Provided bereavement packet [] Provided Bible/devotional materials [] Provided toy/stuffed animal, coloring book to patient or family member [] Provided Communion [] Anointing/[place] [] Salvation [x] Completed spiritual assessment [] Other: Impact on Illness or Injury [] Angry [] Fearful [] Anxious [] Often cries [] Exhaustion [] Unable to work [] Unable to attend sabianist [] Unable to walk/stand [] Unable to read [] Unable to drive [] Unable to eat/drink [] Unable to sleep [] Unable to be with family [] Patient intubated [] Other: Summary Patient waiting for bag to be removed after surgery. Uncomfortable, but good frame of mind. Patient a very dany lady. Time spent with patient 15 min
--- NOTE | 2019-09-03 11:18 | CT_ITS ---
WS: [id number] CT NECK WITH CONTRAST HISTORY: neck surgery, r/o abscess TECHNIQUE: Contiguous 5 mm axial images are performed through the neck with intravenous contrast. Sag ittal and coronal reformats are also submitted. All CT scans at [facility] use at least o ne of these dose optimization techniques: automated exposure control; mA and/or kV adjustment per pat ient size (includes targeted exams where dose is matched to clinical indication); or iterative recons truction. CONTRAST: CONTRAST: Omnipaque 300; 95 mL IV. DLP: 799.95 mGy.cm COMPARISON: 06/19/2019 Patient has undergone a thyroidectomy since the CT of 06/19/2019. Postsurgical changes are present in the soft tissues. There is a soft tissue drain which extends to the RIGHT from the neck. At the surg ical site there is some soft tissue edema but no enhancing abscess. Mild narrowing of the glottic air way and asymmetry similar to the prior study and may be related to patient's breath-hold. There are s mall cervical chain lymph nodes which are not enlarged. Mild atherosclerosis aorta. Small layering pleural effusions are identified. 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 CT/CT neck w con* [id number] IMPRESSION: 1. No neck abscess or mass identified. 2. Postsurgical changes of thyroidectomy with a surgical drain remaining.
[2019-09-03 11:28] LABS: Glucose Point of Care 306 mg/dL (70-110)
[2019-09-03] MEDS: iodixanol 320 mg/mL 100mL Btl IV (11:41)
--- NOTE | 2019-09-03 14:00 | PC.NURSE ---
dr healy ordered to hold coumadin today due to inr 3.51
[2019-09-03] MEDS: HYDROcodone-acetaminophen 5-325 mg Tablet 1 TAB PO (14:34)
--- NOTE | 2019-09-03 14:56 | XR_ITS ---
WS: [id number] PORTABLE CHEST HISTORY: low o2 sat COMPARISON: 09/02/2019 Lung volumes are significantly decreased. Atelectasis and decreased pulmonary expansion at the lung b ases. Pneumonia not excluded. Surgical drain projects over the thoracic inlet along with postsurgical sutures. No mass is noted in the RIGHT paratracheal region on the follow-up neck CT from 09/03/2019. N o pneumothorax. Small bilateral pleural effusions. Cardiac size: Mildly enlarged cardiac silhouette. Mediastinum/Aorta: Mild atherosclerosis aorta. No osseous abnormality seen. XR/XR chest 1V portable [id number] IMPRESSION: 1. Decreased lung volumes with areas of consolidation at the lung bases. Atele ctasis with pneumonia being a consideration. 2. Small bilateral pleural effusions. 3. Surgical drain near the thoracic inlet.
[2019-09-03] MEDS: FUROsemide 10 mg/mL SDV 4mL 40 MG IVP (16:03)
--- NOTE | 2019-09-03 16:34 | P.CONIM_ITS ---
Providers/Reason For Consult Consulting Physican/Specialty*: Otolaryngoloty/Head & Neck Surgery Reason for Consult*: Drain Removal Attending Physician: Jaime Toth MD Primary Care Provider: Onel Rodriguez DO History of Present Illness History of Present Illness Brandy Freitas is a 79 year old female who is POD #5 s/p Total thyroidectomy with parathyroidectomy at 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 The patient was admitted at [facility] [place]. I was consulted for drain removal. The patient and her son report minimal output from the drain today. She is without c/o from the standpoint of her thyroidectomy. Review of Systems General: Reports: 10 or more systems reviewed and unremarkable except in HPI and below Meds/Allergies Home Medications and Allergies Home Medications Medication Instructions Recorded Confirmed Type allopurinol 100 mg PO DAILY 09/03/19 09/03/19 History calcium carbonate [Oyster Shell 500 mg PO TID 09/03/19 09/03/19 History Calcium 500] carvedilol 6.25 mg PO BID 09/03/19 09/03/19 History cyanocobalamin (vitamin B-12) 1,000 mcg PO DAILY 09/03/19 09/03/19 History [Vitamin B-12] enalapril maleate 20 mg PO BID 09/03/19 09/03/19 History felodipine 10 mg PO DAILY 09/03/19 09/03/19 History gabapentin 300 mg PO BID 09/03/19 09/03/19 History glipizide 10 mg PO DAILY 09/03/19 09/03/19 History lovastatin 10 mg PO QPM 09/03/19 09/03/19 History warfarin See Rx Instructions .ROUTE .COMPLEX 09/03/19 09/03/19 History warfarin See Rx Instructions .ROUTE .COMPLEX 09/03/19 09/03/19 History Allergies Allergy/AdvReac Type Severity Reaction Status Date / Time Sulfa (Sulfonamide Allergy Unknown Verified 09/02/19 19:36 Antibiotics) tape Allergy Unknown Uncoded 09/02/19 19:36 Current Medications Current Medications Generic Name Dose Route Start Last Admin Trade Name Freq PRN Reason Stop Dose Admin Acetaminophen 650 mg 09/02/19 23:09 09/03/19 08:51 Tylenol PO 650 mg Q6H PRN Administration Mild/Mod Pain Or Temp >/= 101 Hydrocodone Bitart/Acetaminophen 1 tab 09/03/19 10:06 09/03/19 14:34 [place] 5-325 Mg PO 1 tab Q4H PRN Administration MODERATE PAIN Allopurinol 100 mg 09/03/19 09:00 09/03/19 08:40 Zyloprim PO 100 mg DAILY LEAH Administration Calcium Carbonate 500 mg 09/03/19 09:00 09/03/19 14:38 Tums PO 500 mg TID LEAH Administration Cyanocobalamin 1,000 mcg 09/03/19 09:00 09/03/19 08:39 Vitamin B-12 PO 1,000 mcg DAILY LEAH Administration Enalapril Maleate 20 mg 09/03/19 09:00 09/03/19 08:39 Vasotec PO 20 mg BID LEAH Administration Felodipine 10 mg 09/03/19 09:00 09/03/19 08:51 Plendil PO 10 mg DAILY LEAH Administration Gabapentin 300 mg 09/03/19 09:00 09/03/19 08:39 Neurontin PO 300 mg BID LEAH Administration Piperacillin Sod/Tazobactam 50 mls @ 12.5 mls/hr 09/03/19 01:00 09/03/19 08:37 Sod 3.375 gm/ Sodium Chloride IV 12.5 mls/hr Q8H LEAH Administration Protocol As Directed Insulin Aspart 0 unit 09/03/19 08:00 09/03/19 12:08 Novolog SUBCUT 10 unit TIDWM LEAH Administration Protocol Morphine Sulfate 4 mg 09/02/19 23:09 09/03/19 09:55 Morphine IVP 4 mg Q4H PRN Administration SEVERE PAIN Warfarin Sodium 4 mg 09/03/19 14:00 09/03/19 13:54 Coumadin PO Not Given SuTuWeThSa@1400 LEAH PFSH Acute PFSH: Statuses (acute, chronic, etc) shown below reflect problem list status as previously entered and may not be historically accurate Medical History (Updated 09/03/19 @ 00:36 by Joaquim Swann MD) DVT (deep venous thrombosis) (Acute) Gout (Acute) Hypertension (Acute) Type 2 diabetes mellitus (Acute) Surgical History (Updated 09/03/19 @ 00:36 by Joaquim Swann MD) H/O mastectomy (Acute) H/O parathyroidectomy (Acute) H/O thyroidectomy (Acute) Family History (Updated 09/03/19 @ 00:32 by Joaquim Swann MD) Other Diabetes Social History (Updated 09/03/19 @ 00:32 by Joaquim Swann MD) Smoking and tobacco status: never smoked Alcohol intake: never Substance/Drug Use: never Vitals/I&O/Wt Last Vital Signs Temp 97.8 F 09/03/19 15:38 Pulse 53 L 09/03/19 15:38 Resp 12 09/03/19 15:38 BP 104/46 09/03/19 15:38 Pulse Ox 94 09/03/19 15:38 09/03/19 09/03/19 09/03/19 06:59 14:59 22:59 Intake Total 186.667 / 1486.667 480 / 480 Output Total 1100 / 1100 350 / 350 Balance -913.333 / 386.667 480 / 480 -350 / 130 Weight last 48 hrs Weight 86.183 kg Weight 86.183 kg Physical Exam Const: COMMON NORMALS: no apparent distress and oriented x3 EXAM LIMITATIONS: altered mental status HENMT: COMMON NORMALS: normocephalic, head/scalp atraumatic, external ears normal and moist oral mucous membranes HEAD & SCALP: normocephalic and atraumatic FACE & SINUS: normal facial exam and face symmetric EXTERNAL EAR: Yes external ears normal Eye: COMMON NORMALS: conjunctivae normal CONJUNCTIVA: Yes conjunctivae normal Neck/C-Spine: COMMON NORMALS: full ROM and supple GENERAL: Yes other (The neck wound is intact without erythema. The CHANTEL drain is in place.) THYROID: o ther (There is no swelling or fluctuance of the neck wound.) Lymph: LYMPHATIC: no lymphadenopathy noted Neuro: COMMON NORMALS: oriented x3 Urinary Catheter Management^: 2-way Urethral: Cath Placed During This Visit: yes Urethral Indwelling: No Reason for Continuing Indwelling Catheter: Accurate Measurement of Urinary Output in Critically Ill Patients Urinary Catheter Date of Insertion: 09/02/19 Urinary Catheter Time of Insertion: 22:01 Data Micro: Micro: Microbiology 09/02/19 15:40 Blood Culture - Pr eliminary Blood NEGATIVE TO KATHIE E 09/02/19 15:30 Blood Culture - Pr eliminary Blood NEGATIVE TO KATHIE E A&P Additional A&P Information Impression: POD #5 s/p Total thyroidectomy with minimal CHANTEL drain output Plan: The CHANTEL drain was removed today The patient is to f/u at [place] for her post operative visits She is to f/u with me as needed. Consult Attestations Medical Necessity Statement: I was consulted for drain removal following Thyroidectomy. 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
--- NOTE | 2019-09-03 16:36 | PC.NURSE ---
dr carlisle (ent) removed tara drain and applied drsg.pt tolerated procedure well
[2019-09-03 16:41] LABS: Glucose Point of Care 348 mg/dL (70-110)
[2019-09-03] MEDS: vancomycin 1,000 MG in sodium chloride 0.9% 250 ML 250 MG IV (16:41)
[2019-09-03] MEDS: atorvastatin 40 mg Tablet 20 MG PO (17:42)
[2019-09-03 20:44] LABS: Glucose Point of Care 263 mg/dL (70-110)
[2019-09-04] VITALS (57 sets, daily range): BP systolic 115–143; BP diastolic 51–81; PULSE 56–87; RESP 13–41; TEMP 36.4–37.4; O2SAT 65–100
[2019-09-04] MEDS: piperacillin-tazobactam 3.375 GM in sodium chloride 0.9% (plus) 50 ML IV ×3 (00:26→19:26)
[2019-09-04 03:51] LABS: Basophils # 0.1 10^3/uL (0.0-0.1); Basophils % 0.5 %; Eosinophils # 0.5 10^3/uL (0.0-0.8); Eosinophils % 4.1 %; Hematocrit 31.4 % (37.0-47.0); Hemoglobin 9.9 g/dL (11.5-15.3); Lymphocytes # 1.9 10^3/uL (0.8-4.8); Lymphocytes % 17.2 %; Mean Corpuscular HGB Conc 31.5 g/dL (30.0-36.0); Mean Corpuscular Hemoglobin 26.1 pg (28.0-34.0); Mean Corpuscular Volume 82.8 fL (81-99); Mean Platelet Volume 9.6 fL (7.4-10.4); Monocytes # 0.9 10^3/uL (0.2-0.9); Monocytes % 8.1 %; Neutrophils # 7.8 10^3/uL (1.8-7.7); Neutrophils % 69.2 %; Nucleated Red Blood Cells % 0 %; Platelet Count 561 10^3/cmm (130-400); Red Blood Count 3.79 10^6/uL (4.1-5.3); Red Cell Distribution Width 15.5 % (12.1-15.1); White Blood Count 11.3 10^3/uL (4.0-10.0)
[2019-09-04 04:29] LABS: Alanine Aminotransferase 36 U/L (0-33); Albumin Level 2.2 g/dL (3.5-5.2); Alkaline Phosphatase 114 IU/L (35-105); Anion Gap 16.9 (5-19); Aspartate Amino Transferase 32 U/L (0-32); Blood Urea Nitrogen 15 mg/dL (8-23); Calcium 6.5 mg/dL (8.5-10.5); Carbon Dioxide 23 mmol/L (22-29); Chloride 97 mmol/L (98-107); Globulin 3.3 g/dL (1.3-4.6); Glucose 193 mg/dL (65-115); Magnesium 1.5 mg/dL (1.7-2.3); Phosphorus 5.6 mg/dL (2.5-4.5); Potassium 3.9 mmol/L (3.5-5.1); Sodium 133 mmol/L (136-145); Total Bilirubin 0.3 mg/dL (0.15-1.2); Total Protein 5.5 g/dL (6.6-8.7)
[2019-09-04 04:36] LABS: Procalcitonin 0.56 ng/mL (0-0.5)
[2019-09-04 05:34] LABS: C Reactive Protein 219.2 mg/L (0.0-4.9)
[2019-09-04 06:09] LABS: Glucose Point of Care 247 mg/dL (70-110)
--- NOTE | 2019-09-04 06:26 | PM.CONSULT ---
Providers/Reason For Consult Consulting Physican/Specialty*: General Surgery Tha Young MD Reason for Consult*: Cholelithiasis. Attending Physician: Jaime Toth MD Primary Care Provider: Onel Rodriguez DO History of Present Illness History of Present Illness Brandy Freitas is a 79 year old female who was admitted with malaise, weakness, and poor oral intake 5 days following a thyroidectomy in [place]. She says she has not been having any abdominal pain, no nausea, no fevers or chills. In short, she gives no ongoing history of biliary colic even prior to her thyroidectomy. She apparently had a thyroid mass on the left side with some smaller masses on the right side, but does not know anything about the pathology yet. It sounds like she was told that her parathyroids were removed as well, whether intentionally or not. Imaging here showed a large gallstone in her gallbladder on CAT scan, but no changes of cholecystitis. A follow-up ultrasound had difficulty identifying the gallbladder, probably due to the fact that the gallstone was feeling the majority of the lumen. Dr. Toth asked me to see the patient to see if I thought this had anything to do with her presenting symptoms. Review of Systems General: Reports: 10 or more systems reviewed and unremarkable except in HPI and below GI: Denies: abdominal pain, nausea or vomiting Meds/Allergies Home Medications and Allergies Home Medications Medication Instructions Recorded Confirmed Type allopurinol 100 mg PO DAILY 09/03/19 09/03/19 History calcium carbonate [Oyster Shell 500 mg PO TID 09/03/19 09/03/19 History Calcium 500] carvedilol 6.25 mg PO BID 09/03/19 09/03/19 History cyanocobalamin (vitamin B-12) 1,000 mcg PO DAILY 09/03/19 09/03/19 History [Vitamin B-12] enalapril maleate 20 mg PO BID 09/03/19 09/03/19 History felodipine 10 mg PO DAILY 09/03/19 09/03/19 History gabapentin 300 mg PO BID 09/03/19 09/03/19 History glipizide 10 mg PO DAILY 09/03/19 09/03/19 History lovastatin 10 mg PO QPM 09/03/19 09/03/19 History warfarin See Rx Instructions .ROUTE .COMPLEX 09/03/19 09/03/19 History warfarin See Rx Instructions .ROUTE .COMPLEX 09/03/19 09/03/19 History Allergies Allergy/AdvReac Type Severity Reaction Status Date / Time Sulfa (Sulfonamide Allergy Unknown Verified 09/02/19 19:36 Antibiotics) tape Allergy Unknown Uncoded 09/02/19 19:36 Current Medications Current Medications Generic Name Dose Route Start Last Admin Trade Name Freq PRN Reason Stop Dose Admin Acetaminophen 650 mg 09/02/19 23:09 09/03/19 08:51 Tylenol PO 650 mg Q6H PRN Administration Mild/Mod Pain Or Temp >/= 101 Hydrocodone Bitart/Acetaminophen 1 tab 09/03/19 10:06 09/03/19 14:34 [place] 5-325 Mg PO 1 tab Q4H PRN Administration MODERATE PAIN Allopurinol 100 mg 09/03/19 09:00 09/03/19 08:40 Zyloprim PO 100 mg DAILY LEAH Administration Atorvastatin Calcium 20 mg 09/03/19 18:00 09/03/19 17:42 Lipitor PO 20 mg QPM LEAH Administration Calcium Carbonate 500 mg 09/03/19 09:00 09/03/19 22:16 Tums PO 500 mg TID LEAH Administration Carvedilol 6.25 mg 09/03/19 21:00 09/03/19 22:16 Coreg PO 6.25 mg Q12H LEAH Administration Cyanocobalamin 1,000 mcg 09/03/19 09:00 09/03/19 08:39 Vitamin B-12 PO 1,000 mcg DAILY LEAH Administration Enalapril Maleate 20 mg 09/03/19 09:00 09/03/19 17:41 Vasotec PO 20 mg BID LEAH Administration Felodipine 10 mg 09/03/19 09:00 09/03/19 08:51 Plendil PO 10 mg DAILY LEAH Administration Gabapentin 300 mg 09/03/19 09:00 09/03/19 17:42 Neurontin PO 300 mg BID LEAH Administration Piperacillin Sod/Tazobactam 50 mls @ 12.5 mls/hr 09/03/19 01:00 09/04/19 00:26 Sod 3.375 gm/ Sodium Chloride IV 12.5 mls/hr Q8H LEAH Administration Protocol As Directed Vancomycin HCl 1,000 mg/ 250 mls @ 250 mls/hr 09/03/19 16:30 09/03/19 16:42 Sodium Chloride IV 250 mls/hr Q24H LEAH Infusion Protocol As Directed Insulin Aspart 0 unit 09/03/19 18:00 09/03/19 17:41 Novolog SUBCUT 12 unit TIDWM LEAH Administration Protocol Morphine Sulfate 4 mg 09/02/19 23:09 09/03/19 09:55 Morphine IVP 4 mg Q4H PRN Administration SEVERE PAIN Warfarin Sodium 4 mg 09/03/19 14:00 09/03/19 13:54 Coumadin PO Not Given SuTuWeThSa@1400 [facility] PFSH Acute PFSH: Statuses (acute, chronic, etc) shown below reflect problem list status as previously entered and may not be historically accurate Medical History (Updated 09/04/19 @ 06:34 by Tha Young MD) Cholelithiasis (Acute) DVT (deep venous thrombosis) (Acute) Gout (Acute) Hypertension (Acute) Type 2 diabetes mellitus (Acute) Surgical History (Updated 09/04/19 @ 06:36 by Tha Young MD) H/O mastectomy (Acute) Bilateral H/O parathyroidectomy (Acute) H/O thyroidectomy (Acute) Family History (Updated 09/03/19 @ 00:32 by Joaquim Swann MD) Other Diabetes Social History (Updated 09/03/19 @ 00:32 by Joaquim Swann MD) Smoking and tobacco status: never smoked Alcohol intake: never Substance/Drug Use: never Vitals/I&O/Wt Last Vital Signs Temp 98.7 F 09/04/19 04:00 Pulse 58 L 09/04/19 04:00 Resp 18 09/04/19 04:00 BP 121/51 09/04/19 04:00 Pulse Ox 92 09/04/19 04:00 09/03/19 09/03/19 09/04/19 14:59 22:59 06:59 Intake Total 530 / 530 494.167 / 1024.167 200 / 1224.167 Output Total 350 / 350 1300 / 1650 Balance 530 / 530 144.167 / 674.167 -1100 / -425.833 Weight last 48 hrs Weight 214 lb 12.8 oz Weight 190 lb Weight 190 lb Physical Exam Narrative: EXAM NARRATIVE: The patient was encountered in her hospital room. She was initially resting but was very easily arousable. She has an oxygen mask on. She is in no distress. The pupils seem equal. No carotid bruits are heard. The lungs are clear anteriorly. The heart is regular. The abdomen is moderately obese but is soft. She has no appreciable tenderness on my exam and Rodriguez sign is clearly negative. No obvious masses are palpated. The extremities may reveal some very mild edema about the ankles. Neurologically the patient appears to be grossly intact. Urinary Catheter Management^: 2-way Urethral: Cath Placed During This Visit: yes Urethral Indwelling: No Reason for Continuing Indwelling Catheter: Accurate Measurement of Urinary Output in Critically Ill Patients Urinary Catheter Date of Insertion: 09/02/19 Urinary Catheter Time of Insertion: 22:01 Data Labs: Other Labs: Laboratory Tests 09/04/19 03:20 Total Bilirubin 0.3 AST 32 ALT 36 H Alkaline Phosphata se 114 H Micro: Micro: Microbiology 09/02/19 15:40 Blood Culture - Pr eliminary Blood NEGATIVE TO KATHIE E 09/02/19 15:30 Blood Culture - Pr eliminary Blood NEGATIVE TO KATHIE E Imaging^: CT Abd/Pel: Radiologist's impression: CT abdomen/pelvis 09/02/2019 impression: Gallbladder and bile ducts: Gallstones are identified although there are no CT findings to suggest cholecystitis. US: Radiologist's impression: Right upper quadrant ultrasound 09/02/2019 iMPRESSION: 1. Gallbladder is not identified by ultrasound. On the CT of 09/02/2019 gallbladder is present with a large stone. Stone may be obscuring the ultrasound evaluation. 2. Mild hepatic steatosis and hepatomegaly. A&P Assessment and plan (1) Cholelithiasis: It would appear that the patient's cholelithiasis has nothing to do with her presentation. She has no ongoing history of biliary colic. While she has very mild elevation of some of her LFTs, I think it has nothing to do with gallbladder disease. No surgery is recommended. I will be available if needed. Please call if I can be of further help. Status: Acute Code(s): K80.20 - Calculus of gallbladder without cholecystitis without obstruction Consult Attestations Medical Necessity Statement: See admitting service's notation. 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
[2019-09-04 07:58] LABS: INR 3.83 (0.8-1.2)
[2019-09-04] MEDS: allopurinol 100 mg Tablet PO (08:31)
[2019-09-04] MEDS: cyanocobalamin 1,000 mcg Tablet 1000 MCG PO (08:32)
[2019-09-04] MEDS: gabapentin 300 mg Capsule PO ×2 (08:32→17:28)
[2019-09-04] MEDS: calcium carbonate 500 mg Chew Tablet PO ×3 (08:32→21:11)
[2019-09-04 11:11] LABS: Free T4 Free Thyroxine 0.26 ng/dL (0.82-1.77); Thyroid Stimulating Hormone 39.37 uIU/mL (0.27-4.20)
[2019-09-04 11:23] LABS: Cortisol Random 24.33 mcg/dL (2.47-19.5)
[2019-09-04] MEDS: HYDROcodone-acetaminophen 5-325 mg Tablet 1 TAB PO (11:28)
[2019-09-04 11:29] LABS: Glucose Point of Care 297 mg/dL (70-110)
--- NOTE | 2019-09-04 14:44 | P.PN_ITS ---
Subjective Subjective: Interval history: This morning on examination patient is sitting comfortably at side of her bed. Patient has had no acute events overnight. She had her thyroid drain removed by Dr. Ochoa yesterday. Patient reports pain all over this morning. Reports that 2 days ago her sy mptoms started which included also generalized weakness, lethargy, feeling tired and occasional chills, constipation. She denies of having any shortness of breath, nausea, vomiting, abdominal pain, dysuria. Vitals/I&O/Wt Last Vital Signs Temp 97.8 F 09/04/19 11:18 Pulse 66 09/04/19 14:38 Resp 20 H 09/04/19 11:18 BP 118/51 09/04/19 11:18 Pulse Ox 95 09/04/19 14:38 09/03/19 09/04/19 09/04/19 22:59 06:59 14:59 Intake Total 494.167 / 1024.167 250 / 1274.167 480 / 480 Output Total 350 / 350 1300 / 1650 Balance 144.167 / 674.167 -1050 / -375.833 480 / 480 Weight last 48 hrs Weight 97.432 kg Weight 86.183 kg Weight 86.183 kg Physical Exam Narrative: EXAM NARRATIVE: General: No acute distress, AO x3, weak but not lethargic or listless HEENT: PERRLA, pupils bilaterally equal and reactive Chest: Normal vesicular breath sounds, no added sounds, equal good air entry bilaterally CVS: S1-S2 regular, no murmurs, no tachycardia, no gallops, no rubs Abdomen: Soft, nontender, no organomegaly, bowel sounds present Neuro: No focal deficits, no facial deformity, AO x3, power 5/5 in all limbs Urinary Catheter Management^: 2-way Urethral: Cath Placed During This Visit: yes Urethral Indwelling: No Reason for Continuing Indwelling Catheter: Accurate Measurement of Urinary Output in Critically Ill Patients Urinary Catheter Date of Insertion: 09/02/19 Urinary Catheter Time of Insertion: 22:01 Data : 09/04/19 03:20 09/04/19 03:20 Micro: Microbiology 09/02/19 15:40 Blood Culture - Preliminary Blood NEGATIVE TO DATE 09/02/19 15:30 Blood Culture - Preliminary Blood NEGATIVE TO DATE A&P Assessment and plan (1) Myxedema: Status: Acute Code(s): E03.9 - Hypothyroidism, unspecified (2) H/O thyroidectomy: - Status: Acute Code(s): Z90.09 - Acquired absence of other part of head and neck (3) H/O parathyroidectomy: Status: Acute Code(s): Z90.09 - Acquired absence of other part of head and neck (4) Hypocalcemia: Calcium 7.2 On calcium carbonate Monitor calcium, no EKG changes, no evidence of muscle spasms Status: Acute Code(s): E83.51 - Hypocalcemia (5) Pneumonia: -White blood cell count 13.2, -Inflammatory markers pending -CT angios shows bibasilar atelectasis, possible pneumonia -Patient has recent hospitalization for parathyroidectomy and thyroidectomy and partial hospital -Oxygen saturations were in the 80s on presentation -But does not complain of shortness of breath, nor cough Plan -Receiving vancomycin and Zosyn -Blood cultures -Monitor respiratory status, monitor vitals Status: Acute Qualifiers: Laterality: bilateral Lung location: lower lobe of lung Pneumonia type: due to unspecified organism Qualified Code(s): J18.9 - Pneumonia, unspecified organism Code(s): J18.9 - Pneumonia, unspecified organism (6) Sepsis: Status: Acute Qualifiers: Sepsis acute organ dysfunction status: unspecified Sepsis type: sepsis due to unspecified organism Qualified Code(s): A41.9 - Sepsis, unspecified or ganism Code(s): A41.9 - Sepsis, unspecified organism (7) Type 2 diabetes mellitus: Low-dose sliding scale Status: Acute Code(s): E11.9 - Type 2 diabetes mellitus without complications (8) Supratherapeutic INR: Status: Acute Code(s): R79.1 - Abnormal coagulation profile (9) DVT (deep venous thrombosis): Continue Coumadin but skip today's dose. Today patient is supposed to receive 2 mg warfarin and dosing will be corrected. Status: Acute Code(s): I82.409 - Acute embolism and thrombosis of unspecified deep veins of unspecified lower extremity (10) Hypertension: Status: Acute Code(s): I10 - Essential (primary) hypertension (11) Acute kidney injury: Secondary to dehydration Continue normal saline Status: Acute Code(s): N17.9 - Acute kidney failure, unspecified (12) Gout: Status: Acute Code(s): M10.9 - Gout, unspecified Additional A&P Information Post complete thyroidectomy and parathyroidectomy: Symptoms concerning for a possible myxedema as patient was not on any replacement therapy post surgery. Patient has not followed up with endocrinology since surgery. She was due to follow-up with furnace attendant this week but was difficult to get appointments. CHANTEL drain removed yesterday by Dr. Ochoa. CT Carrol of the chest and CT of the neck not suggestive of any abscesses or any infiltrates. Abdominal CT scan not suggestive of any acute process except gallstones. But patient does not have any Rodriguez sign or right abdominal upper quadrant tenderness. Unlikely cholecystitis. Surgical recommendations recommendations appreciated. Will do stat TSH, free T4, cortisol levels. If TSH elevated and free T4 low we will give her 200 mcg of levothyroxine followed by 1.6 mcg/kg body weight oral supplementation from tomorrow morning. If cortisol levels are low we will have to start on hydrocortisone before starting on thyroid replacement. Case discussed with Dr. Loving who is furnace attendant at [facility]. Possible pneumonia on CT scan: For now patient is already on vancomycin and Zosyn. Day 2 of treatment. Will check MRSA swab. We will follow-up cultures. Sputum from Gram stain. Will most likely do a 5-day course. Can de-escalate antibiotics as per the culture results. Hypertension: Patient's blood pressure on examination for last 24 hours seems to be running from 100-120 systolics along with some bradycardia noted in 50s. Patient is on multiple antihypertensives including carvedilol, enalapril, Plendil. We will hold off on antihypertensives for now. We will continue to monitor. Will reintroduce medications as per the blood pressures. Hypocalcemia: Calcium levels are improved. Corrected calcium level today 7.9. Patient is on oral calcium replacement therapy. After discussion with furnace attendant we will start patient on calcitriol and can discontinue calcium carbonate from tomorrow morning. Supratherapeutic INR: Patient's INR more than 3 today. We will continue to hold off on warfarin for now. Check INR daily. Goal INR between 2-3. DVT: Patient is on Coumadin for same. Treatment as above. Acute kidney injury: Baseline creatinine around 1. Creatinine 1.7 today. Most likely due to combination of dehydration and continued enalapril. We will discontinue Advil today as discussed above. Continue to monitor BMP daily. CODE STATUS not in chart. Will discuss with patient and son regarding the CODE STATUS. Cardiac diet. Hold off on DVT prophylaxis due to supratherapeutic INR. SCDs Attestations Medical Necessity Statement*: Continued hospitalization for management of myxedema, hypocalcemia, supratherapeutic INR, NANO Time Spent in Patient Care: Greater than 35 minutes (>than 50% of time spent in counselling and/or direct pt care on unit) . 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
[2019-09-04 16:14] LABS: Thyroid Stimulating Hormone 31.13 uIU/mL (0.27-4.20)
[2019-09-04 16:19] LABS: Glucose Point of Care 230 mg/dL (70-110)
[2019-09-04] MEDS: calcitriol 0.25 mcg Capsule 0.5 MCG PO (16:29)
[2019-09-04] MEDS: levothyroxine 100 mcg SDV 200 MCG IVP (17:25)
[2019-09-04] MEDS: vancomycin 1,000 MG in sodium chloride 0.9% 250 ML 250 MG IV (17:26)
[2019-09-04] MEDS: atorvastatin 40 mg Tablet 20 MG PO (17:27)
--- NOTE | 2019-09-04 20:30 | PC.NURSE ---
Pt arrived from [facility] by bed. Pt oriented to room, call light placed within reach. Pt denies pain or needs at this time. Pt arrived with bag of home medications. 11 bottles of medications and 6 loose pills noted to be inside bag. Home medications to be placed in Pyxis until pt is discharged.
[2019-09-04 21:23] LABS: Glucose Point of Care 268 mg/dL (70-110)
[2019-09-05] VITALS (9 sets, daily range): BP systolic 117–147; BP diastolic 62–73; PULSE 64–75; RESP 16–19; TEMP 37–37.6; O2SAT 90–97
[2019-09-05] MEDS: acetaminophen 325 mg Tablet 650 MG PO (00:34)
[2019-09-05] MEDS: piperacillin-tazobactam 3.375 GM in sodium chloride 0.9% (plus) 50 ML IV ×2 (01:40→08:50)
[2019-09-05] MEDS: HYDROcodone-acetaminophen 5-325 mg Tablet 1 TAB PO ×2 (03:25→20:58)
[2019-09-05 04:29] LABS: Basophils # 0.1 10^3/uL (0.0-0.1); Basophils % 0.5 %; Eosinophils # 0.4 10^3/uL (0.0-0.8); Eosinophils % 3.8 %; Hematocrit 32.3 % (37.0-47.0); Hemoglobin 10.1 g/dL (11.5-15.3); Lymphocytes # 2.3 10^3/uL (0.8-4.8); Lymphocytes % 19.9 %; Mean Corpuscular HGB Conc 31.3 g/dL (30.0-36.0); Mean Corpuscular Hemoglobin 25.5 pg (28.0-34.0); Mean Corpuscular Volume 81.6 fL (81-99); Mean Platelet Volume 10.4 fL (7.4-10.4); Monocytes # 0.8 10^3/uL (0.2-0.9); Monocytes % 6.6 %; Neutrophils # 7.8 10^3/uL (1.8-7.7); Neutrophils % 68.2 %; Nucleated Red Blood Cells % 0 %; Platelet Count 594 10^3/cmm (130-400); Red Blood Count 3.96 10^6/uL (4.1-5.3); Red Cell Distribution Width 15.2 % (12.1-15.1); White Blood Count 11.4 10^3/uL (4.0-10.0)
[2019-09-05 05:05] LABS: Alanine Aminotransferase 41 U/L (0-33); Albumin Level 2.3 g/dL (3.5-5.2); Alkaline Phosphatase 125 IU/L (35-105); Aspartate Amino Transferase 47 U/L (0-32); Blood Urea Nitrogen 15 mg/dL (8-23); Calcium 6.5 mg/dL (8.5-10.5); Carbon Dioxide 21 mmol/L (22-29); Chloride 95 mmol/L (98-107); Globulin 3.8 g/dL (1.3-4.6); Glucose 183 mg/dL (65-115); Magnesium 1.5 mg/dL (1.7-2.3); Phosphorus 4.5 mg/dL (2.5-4.5); Sodium 132 mmol/L (136-145); Total Bilirubin 0.4 mg/dL (0.15-1.2); Total Protein 6.1 g/dL (6.6-8.7)
[2019-09-05 05:17] LABS: Thyroid Stimulating Hormone 33.19 uIU/mL (0.27-4.20)
[2019-09-05 06:25] LABS: Glucose Point of Care 202 mg/dL (70-110)
[2019-09-05 08:31] LABS: Free T4 Free Thyroxine 0.71 ng/dL (0.82-1.77); T3 Free 0.8 PG/ML (2.0-4.4)
[2019-09-05] MEDS: cyanocobalamin 1,000 mcg Tablet 1000 MCG PO (08:49)
[2019-09-05] MEDS: calcium carbonate 500 mg Chew Tablet PO ×3 (08:49→20:58)
[2019-09-05] MEDS: allopurinol 100 mg Tablet PO (08:49)
[2019-09-05] MEDS: calcitriol 0.25 mcg Capsule 0.5 MCG PO (08:49)
[2019-09-05] MEDS: levothyroxine 150 mcg Tablet PO (08:50)
[2019-09-05] MEDS: gabapentin 300 mg Capsule PO ×2 (08:50→18:37)
[2019-09-05 11:05] LABS: Glucose Point of Care 358 mg/dL (70-110)
[2019-09-05] MEDS: carvedilol 3.125 mg Tablet PO (12:41)
[2019-09-05 13:50] LABS: INR 2.44 (0.8-1.2)
--- NOTE | 2019-09-05 16:05 | PM.PN ---
Subjective Subjective: Interval history: This morning patient was seen 10:30 AM. On examination patient is sitting comfortably in chair having a states today she is feeling a lot better. She denies of having any shortness of breath,, headache, palpitations, abdominal pain. She states she is feeling a lot more energetic and her appetite is back. Vitals/I&O/Wt Last Vital Signs Temp 99.7 F H 09/05/19 12:00 Pulse 71 09/05/19 12:00 Resp 17 09/05/19 12:00 BP 147/66 09/05/19 12:00 Pulse Ox 95 09/05/19 12:00 09/05/19 09/05/19 09/05/19 06:59 14:59 22:59 Intake Total 100 / 1270 462 / 462 Output Total 1100 / 1100 350 / 350 Balance -1000 / 170 112 / 112 Weight last 48 hrs Weight 97.432 kg Physical Exam Narrative: EXAM NARRATIVE: General: No acute distress, AO x3, weak but not lethargic or listless HEENT: PERRLA, pupils bilaterally equal and reactive Chest: Normal vesicular breath sounds, no added sounds, equal good air entry bilaterally CVS: S1-S2 regular, no murmurs, no tachycardia, no gallops, no rubs Abdomen: Soft, nontender, no organomegaly, bowel sounds present Neuro: No focal deficits, no facial deformity, AO x3, power 5/5 in all limbs Urinary Catheter Management^: 2-way Urethral: Cath Placed During This Visit: yes Urethral Indwelling: No Reason for Continuing Indwelling Catheter: Other Urinary Catheter Date of Insertion: 09/02/19 Urinary Catheter Time of Insertion: 22:01 Data : 09/05/19 02:30 09/05/19 02:30 Micro: Microbiology 09/04/19 16:15 MRSA Culture - Final Nose A&P Assessment and plan (1) Myxedema: Status: Acute Code(s): E03.9 - Hypothyroidism, unspecified (2) H/O thyroidectomy: - Status: Acute Code(s): Z90.09 - Acquired absence of other part of head and neck (3) H/O parathyroidectomy: Status: Acute Code(s): Z90.09 - Acquired absence of other part of head and neck (4) Hypocalcemia: Status: Acute Code(s): E83.51 - Hypocalcemia (5) Pneumonia: Status: Acute Qualifiers: Laterality: bilateral Lung location: lower lobe of lung Pneumonia type: due to unspecified organism Qualified Code(s): J18.9 - Pneumonia, unspecified organism Code(s): J18.9 - Pneumonia, unspecified organism (6) Sepsis: Status: Acute Qualifiers: Sepsis acute organ dysfunction status: unspecified Sepsis type: sepsis due to unspecified organism Qualified Code(s): A41.9 - Sepsis, unspecified organism Code(s): A41.9 - Sepsis, unspecified organism (7) Type 2 diabetes mellitus: Low-dose sliding scale Status: Acute Code(s): E11.9 - Type 2 diabetes mellitus without complications (8) Supratherapeutic INR: Status: Acute Code(s): R79.1 - Abnormal coagulation profile (9) DVT (deep venous thrombosis): Continue Coumadin but skip today's dose. Today patient is supposed to receive 2 mg warfarin and dosing will be corrected. Status: Acute Code(s): I82.409 - Acute embolism and thrombosis of unspecified deep veins of unspecified lower extremity (10) Hypertension: Status: Acute Code(s): I10 - Essential (primary) hypertension (11) Acute kidney injury: Secondary to dehydration Continue normal saline Status: Acute Code(s): N17.9 - Acute kidney failure, unspecified (12) Gout: Status: Acute Code(s): M10.9 - Gout, unspecified Additional A&P Information Post complete thyroidectomy and parathyroidectomy:Myxedema: Symptoms concerning for a possible myxedema as patient was not on any replacement therapy post surgery. Patient has not followed up with endocrinology since surgery. She was due to follow-up with manufacturing technology professor this week but was difficult to get appointments. CHANTEL drain removed yesterday by Dr. Ochoa. CT Carrol of the chest and CT of the neck not suggestive of any abscesses or any infiltrates. Abdominal CT scan not suggestive of any acute process except gallstones. But patient does not have any Rodriguez sign or right abdominal upper quadrant tenderness. Unlikely cholecystitis. Surgical recommendations recommendations appreciated. TSH done yesterday showed market elevation with very low free T4. Cortisol levels were within normal limit. Patient was given IV levothyroxine 200 mcg once yesterday and has been started on 150 mcg of levothyroxine daily. Patient free T3 is low as well but unfortunately we do not have the T3 IV at [facility]. We will continue with oral levothyroxine. Could not do hydrocortisone as cortisol levels were elevated. Case discussed with Dr. Loving who is manufacturing technology professor at [facility]. Possible pneumonia on CT scan: Significant suggestive of bilateral atelectasis. We will discontinue antibiotics today as patient is doing a lot better after IV levothyroxine. Will switch to oral Augmentin for 2 more days to finish a 5-day course. Continue with incentive spirometry. MRSA negative. Hypertension: BP better now. HR better now. Mostly in 70s now, Will restart COreg but at lower dose of 3.125 mg BID. C/w holding enalapril, Plendil. We will hold off on antihypertensives for now. We will continue to monitor. Will reintroduce medications as per the blood pressures. Hypocalcemia: Calcium levels are stable. Corrected calcium level today 7.9. c/w calcium carbonate and calcitriol. f/u with Ca QD. Supratherapeutic INR: Patient's INR more than 3 today. We will continue to hold off on warfarin for now. Check INR daily. Goal INR between 2-3. DVT: Patient is on Coumadin for same. Treatment as above. Acute kidney injury: Baseline creatinine around 1. Creatinine better today to 1.6. Most likely due to combination of dehydration and continued enalapril. Continue to monitor BMP daily. FC Cardiac diet. Hold off on DVT prophylaxis due to supratherapeutic INR. 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
[2019-09-05 17:25] LABS: Glucose Point of Care 275 mg/dL (70-110)
[2019-09-05] MEDS: amoxicillin-clav 875-125 mg Tablet 1 TAB PO (18:37)
[2019-09-05] MEDS: atorvastatin 40 mg Tablet 20 MG PO (20:57)
[2019-09-05 22:15] LABS: Glucose Point of Care 250 mg/dL (70-110)
[2019-09-06] VITALS (7 sets, daily range): BP systolic 127–145; BP diastolic 71–78; PULSE 72–82; RESP 16–18; TEMP 37.3–37.4; O2SAT 92–94
[2019-09-06] MEDS: carvedilol 3.125 mg Tablet PO ×2 (00:57→12:42)
[2019-09-06 05:51] LABS: Basophils # 0.1 10^3/uL (0.0-0.1); Basophils % 0.7 %; Eosinophils # 0.4 10^3/uL (0.0-0.8); Eosinophils % 3.6 %; Hematocrit 31.3 % (37.0-47.0); Hemoglobin 10.1 g/dL (11.5-15.3); Lymphocytes # 2.1 10^3/uL (0.8-4.8); Lymphocytes % 20.7 %; Mean Corpuscular HGB Conc 32.3 g/dL (30.0-36.0); Mean Corpuscular Volume 83.7 fL (81-99); Mean Platelet Volume 9.7 fL (7.4-10.4); Monocytes # 0.8 10^3/uL (0.2-0.9); Monocytes % 7.9 %; Neutrophils # 6.6 10^3/uL (1.8-7.7); Nucleated Red Blood Cells % 0 %; Platelet Count 583 10^3/cmm (130-400); Red Blood Count 3.74 10^6/uL (4.1-5.3); Red Cell Distribution Width 15.4 % (12.1-15.1)
[2019-09-06 06:10] LABS: INR 1.88 (0.8-1.2)
[2019-09-06 06:20] LABS: Albumin Level 2.5 g/dL (3.5-5.2); Alkaline Phosphatase 121 IU/L (35-105); Aspartate Amino Transferase 34 U/L (0-32); Blood Urea Nitrogen 18 mg/dL (8-23); Calcium 6.4 mg/dL (8.5-10.5); Carbon Dioxide 23 mmol/L (22-29); Chloride 99 mmol/L (98-107); Globulin 3.7 g/dL (1.3-4.6); Glucose 212 mg/dL (65-115); Magnesium 1.6 mg/dL (1.7-2.3); Phosphorus 4.5 mg/dL (2.5-4.5); Sodium 136 mmol/L (136-145); Total Bilirubin 0.3 mg/dL (0.15-1.2); Total Protein 6.2 g/dL (6.6-8.7)
[2019-09-06 06:31] LABS: Thyroid Stimulating Hormone 34.51 uIU/mL (0.27-4.20)
[2019-09-06 06:33] LABS: Free T4 Free Thyroxine 0.61 ng/dL (0.82-1.77); T3 Free 0.9 PG/ML (2.0-4.4)
[2019-09-06 06:48] LABS: Alanine Aminotransferase 33 U/L (0-33)
[2019-09-06 07:56] LABS: Glucose Point of Care 226 mg/dL (70-110)
[2019-09-06] MEDS: calcitriol 0.25 mcg Capsule 0.5 MCG PO (09:18)
[2019-09-06] MEDS: allopurinol 100 mg Tablet PO (09:19)
[2019-09-06] MEDS: gabapentin 300 mg Capsule PO (09:19)
[2019-09-06] MEDS: cyanocobalamin 1,000 mcg Tablet 1000 MCG PO (09:20)
[2019-09-06] MEDS: levothyroxine 150 mcg Tablet PO (09:20)
[2019-09-06] MEDS: calcium carbonate 500 mg Chew Tablet PO (09:20)
[2019-09-06] MEDS: amoxicillin-clav 875-125 mg Tablet 1 TAB PO (09:20)
[2019-09-06] MEDS: HYDROcodone-acetaminophen 5-325 mg Tablet 1 TAB PO (09:26)
[2019-09-06 12:27] LABS: Glucose Point of Care 330 mg/dL (70-110)
--- NOTE | 2019-09-06 12:56 | PM.DCS ---
Discharge Providers Date of Admission: 09/03/19 12:49 Date of Discharge: Date of Discharge: September 06, 2019 Attending Provider at Admission: Joaquim Swann MD Attending Provider at Discharge: Yousif Cosby MD Primary Care Provider: Onel Rodriguez DO Diagnoses at Discharge Discharge Diagnosis (1) Myxedema: Status: Acute (2) H/O thyroidectomy: Status: Acute (3) H/O parathyroidectomy: Status: Acute (4) Hypocalcemia: Status: Acute (5) Pneumonia: Status: Acute Qualifiers: Laterality: bilateral Lung location: lower lobe of lung Pneumonia type: due to unspecified organism Qualified Code(s): J18.9 - Pneumonia, unspecified organism (6) Sepsis: Status: Acute Qualifiers: Sepsis acute organ dysfunction status: unspecified Sepsis type: sepsis due to unspecified organism Qualified Code(s): A41.9 - Sepsis, unspecified organism (7) Type 2 diabetes mellitus: Status: Acute (8) Supratherapeutic INR: Status: Acute (9) DVT (deep venous thrombosis): Status: Acute (10) Hypertension: Status: Acute (11) Acute kidney injury: Status: Acute (12) Gout: Status: Acute Reason for Visit Reason for Visit: Reason For Visit: Sepsis;Pneumonia:hypoxia Hospital Course Discharge Summary: Brandy Freitas is a 79 year old female with a past medical history of type 2 diabetes mellitus, hypertension, gout, neuropathy, B12 deficiency with recent history of thyroidectomy and parathyroidectomy for a thyroid mass who presented to the emergency room on September 03 due to complaints of weakness, fatigue, poor appetite, malaise, and feeling unwell. Patient states that she returned from [facility] 5 days ago after getting a thyroidectomy and parathyroidectomy for a thyroid mass, had a CHANTEL drain in place, states that the CHANTEL drain has very minimal output. Patient states that since her surgery she just has not been feeling well, has generalized fatigue, weakness, malaise, poor appetite, has not been drinking well. Patient denies fevers. Does report chills and feeling cold intermittently. Patient on admission was thought to be in sepsis so was started on broad-spectrum antibiotics and was mathias scanned and mathias cultured. Her blood work on admission showed she was having hypercalcemia, acute kidney injury along with CT chest showing bibasilar atelectasis and gallbladder stones. Patient was seen by Dr. Ochoa from ENT and the CHANTEL drain was removed. CT of the neck was done to rule out any underlying abscess. General surgery was consulted for gallstones and cholecystitis was ruled out. Subsequently patient's TSH, free T4 and cortisol levels, PTH were checked. Patient's blood work suggested of myxedema without coma and inappropriately deranged PTH levels with an elevated cortisol levels. Patient was started on calcitriol along with oral supplementation of calcium and after consultation with funeral service licensee from [facility] she was started on IV levothyroxine for 1 day followed by oral levothyroxine. Since starting of levothyroxine patient responded really remarkably to the treatment and most of her symptoms have resolved. Patient continues to work well with physical therapy. For bibasilar atelectasis patient has been treated with incentive spirometry. Patient's culture result remain negative and her antibiotics were changed appropriately. On admission patient was found to be in supratherapeutic INR for which her Coumadin was withheld and INR was checked daily. Patient's INR subsequently came to normal level and at that point she was started back on adjusted warfarin dose. Due to severe deconditioning SNF placement was discussed with the patient and her son and they are both agreeable to the same. Patient is being discharged on warfarin 2 mg Sunday to Sunday and 4 mg on Sunday and Sunday with advised to recheck her TSH, free T4, free T3, INR, calcium levels in 7 to 10 days and follow-up with her primary care practitioner. Patient is being discharged in hemodynamically stable condition. Patient is to follow-up with funeral service licensee within next 2 weeks for further treatment. Physical Exam Narrative: EXAM NARRATIVE: General: No acute distress, AO x3, weak but not lethargic or listless HEENT: PERRLA, pupils bilaterally equal and reactive Chest: Normal vesicular breath sounds, no added sounds, equal good air entry bilaterally CVS: S1-S2 regular, no murmurs, no tachycardia, no gallops, no rubs Abdomen: Soft, nontender, no organomegaly, bowel sounds present Neuro: No focal deficits, no facial deformity, AO x3, power 5/5 in all limbs Urinary Catheter Management^: 2-way Urethral: Cath Placed During This Visit: yes Urethral Indwelling: No Reason for Continuing Indwelling Catheter: Acute Urinary Retention or Obstruction Urinary Catheter Date of Insertion: 09/05/19 Urinary Catheter Time of Insertion: 20:42 Discharge Data Data Completed and Pending: Completed Studies During Hospitalization Category Date Time Status CT angio chest w abd pel w con Urge nt Cat Scan 09/02/19 18:[address] neck w con* 70 [id number] Routine Cat Scan 09/03/19 11:18 Completed XR chest 1V haider ble [id number] Routine Exams 09/03/19 14:56 Completed XR chest 1V haider ble [id number] Stat Exams 09/02/19 15:17 Completed US gall bladder 7 [id number] Urgent Ultrasound 09/02/19 18:35 Completed Pending at discharge Category Date Time Status Blood Culture Sta t Lab 09/02/19 15:40 Results Free T4 Free Thyr oxine AM LABS Lab 09/07/19 04:00 Ordered T3 Free AM LABS Lab 09/07/19 04:00 Ordered Thyroid Stimulati ng Hormone AM LABS Lab 09/07/19 04:00 Ordered Labs from last 24 hours 09/06/19 09/06/19 09/06/19 10:24 07:42 05:12 WBC RBC Hgb Hct MCV MCH MCHC RDW Plt Count MPV Neut % (Auto) Lymph % (Auto) Rhea % (Auto) Eos % (Auto) Baso % (Auto) Neut # (Auto) Lymph # (Auto) Rhea # (Auto) Eos # (Auto) Baso # (Auto) Nucleated RBC % (a uto) Nucleated RBCs # PT INR Sodium 136 Potassium 4.0 Chloride 99 Carbon Dioxide 23 Anion Gap 18.0 BUN 18 Creatinine 1.6 H Glucose 212 H POC Glucose 330 226 Calcium 6.4 L Phosphorus 4.5 Magnesium 1.6 L Total Bilirubin 0.3 AST 34 H ALT 33 Alkaline Phosphata se 121 H Total Protein 6.2 L Albumin 2.5 L Globulin 3.7 TSH Free T4 Free T3 Vancomycin Trough 09/06/19 09/06/19 09/06/19 05:12 05:12 05:12 WBC 10.0 RBC 3.74 L Hgb 10.1 L Hct 31.3 L MCV 83.7 MCH 27.0 L MCHC 32.3 RDW 15.4 H Plt Count 583 H MPV 9.7 Neut % (Auto) 66.0 Lymph % (Auto) 20.7 Rhea % (Auto) 7.9 Eos % (Auto) 3.6 Baso % (Auto) 0.7 Neut # (Auto) 6.6 Lymph # (Auto) 2.1 Rhea # (Auto) 0.8 Eos # (Auto) 0.4 Baso # (Auto) 0.1 Nucleated RBC % (a uto) 0 Nucleated RBCs # 0.0 PT 22.30 H INR 1.88 H Sodium Potassium Chloride Carbon Dioxide Anion Gap BUN Creatinine Glucose POC Glucose Calcium Phosphorus Magnesium Total Bilirubin AST ALT Alkaline Phosphata se Total Protein Albumin Globulin TSH Free T4 0.61 L Free T3 0.9 L Vancomycin Trough 09/06/19 09/05/19 09/05/19 05:12 21:44 17:11 WBC RBC Hgb Hct MCV MCH MCHC RDW Plt Count MPV Neut % (Auto) Lymph % (Auto) Rhea % (Auto) Eos % (Auto) Baso % (Auto) Neut # (Auto) Lymph # (Auto) Rhea # (Auto) Eos # (Auto) Baso # (Auto) Nucleated RBC % (a uto) Nucleated RBCs # PT INR Sodium Potassium Chloride Carbon Dioxide Anion Gap BUN Creatinine Glucose POC Glucose 250 275 Calcium Phosphorus Magnesium Total Bilirubin AST ALT Alkaline Phosphata se Total Protein Albumin Globulin TSH 34.51 H Free T4 Free T3 Vancomycin Trough 09/05/19 09/05/19 15:40 13:22 WBC RBC Hgb Hct MCV MCH MCHC RDW Plt Count MPV Neut % (Auto) Lymph % (Auto) Rhea % (Auto) Eos % (Auto) Baso % (Auto) Neut # (Auto) Lymph # (Auto) Rhea # (Auto) Eos # (Auto) Baso # (Auto) Nucleated RBC % (a uto) Nucleated RBCs # PT 27.40 H INR 2.44 H Sodium Potassium Chloride Carbon Dioxide Anion Gap BUN Creatinine Glucose POC Glucose Calcium Phosphorus Magnesium Total Bilirubin AST ALT Alkaline Phosphata se Total Protein Albumin Globulin TSH Free T4 Free T3 Vancomycin Trough 13.0 Vitals: Last Vital Signs Temp 99.1 F 09/06/19 10:27 Pulse 74 09/06/19 10:27 Resp 16 09/06/19 10:27 BP 135/71 09/06/19 10:27 Pulse Ox 93 09/06/19 10:27 Discharge Plan Discharge Patient Disposition: Xfer [facility] Condition: Stable Prescriptions: New carvedilol 3.125 mg Tablet 3.125 mg PO Q12H Qty: 60 RF: 0 levothyroxine 150 mcg Tablet 200 mcg PO DAILY Qty: 30 RF: 0 calcium carbonate 200 mg calcium (500 mg) Tablet,Chewable 500 mg PO TID Qty: 90 RF: 0 calcitriol 0.25 mcg Capsule 0.5 mcg PO DAILY Qty: 30 RF: 0 amoxicillin-pot clavulanate 875-125 mg Tablet 1 tab PO BID 5 Days Qty: 10 RF: 0 warfarin 2 mg tablet 2 mg PO .[id number] Qty: 30 RF: 0 warfarin 4 mg tablet See Rx Instructions .ROUTE .COMPLEX Qty: 30 RF: 0 Continued glipizide 10 mg Tablet Extended Release 24hr 10 mg PO DAILY RF: 0 Vitamin B-12 1,000 mcg Tablet 1,000 mcg PO DAILY RF: 0 lovastatin 10 mg Tablet 10 mg PO QPM RF: 0 Oyster Shell Calcium 500 500 mg calcium (1,250 mg) Tablet 500 mg PO TID RF: 0 gabapentin 300 mg Capsule 300 mg PO BID RF: 0 allopurinol 100 mg Tablet 100 mg PO DAILY RF: 0 Discontinued carvedilol 6.25 mg Tablet 6.25 mg PO BID RF: 0 enalapril maleate 20 mg Tablet 20 mg PO BID RF: 0 warfarin 4 mg Tablet See Rx Instructions .ROUTE .COMPLEX RF: 0 felodipine 10 mg Tablet Extended Release 24 Hr 10 mg PO DAILY RF: 0 warfarin 4 mg Tablet See Rx Instructions .ROUTE .COMPLEX RF: 0 Discharge Orders: Discharge Order (Routine); Ordered 09/06/19 Ordered By: Yousif Cosby Referrals: [employer] Marketing ConsultantMD [Other] - 2 weeks [facility] [Outside] Discharge Diet: Cardiac Discharge Activity: Resume usual activity Patient Instructions: Levothyroxine (By mouth), Warfarin (By mouth), Amoxicillin/Clavulanate Potassium (By mouth), Calcitriol (By mouth), Carvedilol (By mouth), Calcium Supplement (By mouth) Activity Restrictions/Additional Instructions: Patient needs to follow-up with an funeral service licensee within 2 weeks. Patient should get a repeat TSH, free T3, free T4, calcium and INR level checked in 10 days and follow-up with primary care physician Discharge Date/Time: 09/06/19 15:02 Discharge Attestations Time Spent in Discharge Care*: greater than 30 min Specific Discharge Activities: Specific discharge activities: educating patient, educating and/or supporting family/caregiver and discussing with shoe caser/social workers/dc planners Status at Discharge: Cognitive status at discharge: cognitively intact, Behavioral status at discharge: cooperative, Functional status at discharge: independent ambulation Overall status at discharge: patient is progressing back to baseline Quality Metrics Clinical Quality Measures During this hospital stay, did patient experience: None Coding Level of Care Code 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
== END 2019-09-06 15:02 | disposition skilled nursing facility (03) | DRG 871 ==
LOC: ER 16:20 → CSU 23:03 → MEDSURG 09-04 21:49
PROVIDERS: Internal Medicine; Admitting Provider Family Medicine; Emergency Provider Emergency Medicine; Family Provider Nurse Practitioner; PCP Family Medicine; Visit Provider Student in an Organized Health Care Education/Training Program
DX: A41.9 Sepsis, unspecified organism (principal); J18.9 Pneumonia, unspecified organism; I82.409 Acute embolism and thrombosis of unspecified deep veins of unspecified lower extremity; N17.9 Acute kidney failure, unspecified; E11.42 Type 2 diabetes mellitus with diabetic polyneuropathy; I10 Essential (primary) hypertension; M10.9 Gout, unspecified; E53.8 Deficiency of other specified B group vitamins; E89.0 Postprocedural hypothyroidism; E83.51 Hypocalcemia; Z79.01 Long term (current) use of anticoagulants; E86.0 Dehydration; G89.29 Other chronic pain; M25.562 Pain in left knee; M25.561 Pain in right knee; K80.20 Calculus of gallbladder without cholecystitis without obstruction
CPT/HCPCS: 12345; 36415; 36416; 36600; 51702; 70491; 71045; 71275; 74177; 76705; 80048; 80053; 80202; 81001; 82533; 82803; 82962; 83605; 83735; 84100; 84145; 84439; 84443; 84481; 84484; 85025; 85378; 85610; 86140; 87040; 87641; 87804; 93005; 94640; 96372; 96375; 97110; 97116; 97162; 97530; 99284; G0378; J0610; J0692; J1170; J1815; J1940; J2270; J2405; J2543; J3370; J3490; J7030; J7050; Q9967

== ENCOUNTER 2020-01-01 22:55 | Emergency (ER) | payer MEDICARE, OTHER, SELFPAY ==
[2020-01-01 22:55] VITALS: BP 246/87; PULSE 75; RESP 20; TEMP 36.8; O2SAT 97; BMI 33.3
--- NOTE | 2020-01-01 23:01 | ECG_ITS ---
Measurements Intervals [place] Rate: 75 P: -48 [place]: 162 QRS: -33 QRSD: 93 T: -3 QT: 431 QTc: 483 SINUS RHYTHM LEFT AXIS DEVIATION [QRS AXIS < -30] POSSIBLE RIGHT VENTRICULAR CONDUCTION DELAY [RSR (QR) IN V1/V2] VOLTAGE CRITERIA FOR LVH [MEETS CRITERIA IN ONE OF: R(aVL), S(V1), R(V5), R MODERATE ST DEPRESSION [0.05+ mV ST DEPRESSION] Compared to ECG 09/03/2019 03:56:41 Left-axis deviation now present Left ventricular hypertrophy now present ST (T wave) deviation now present First degree AV block no longer present Myocardial infarct finding no longer present Electronically Signed On 01-02-2020 18:01:33 CDT by Aleyda Clemens M.D. [email or web address]
--- NOTE | 2020-01-01 23:01 | XR_ITS ---
WS: [id number] XR chest 1V portable [id number] REASON FOR EXAM: weakness FINDINGS: The heart and mediastinal interfaces normal. A scoliotic curve convex to the right. Prominent azygos lymph node on the right. There is no definite pneumonia, pleural effusion, pulmonary edema, pneumothorax, or mass effect. XR/XR chest 1V portable [id number] IMPRESSION: Negative chest for active pathology Prominence of the azygos lymph nodes on the right
--- NOTE | 2020-01-01 23:02 | ED_ITS ---
HPI - Weakness General: Chief complaint: Weakness Stated complaint: generalized weakness/ high bp Time Seen by Provider: 01/01/20 22:57 Source: patient and EMS Mode of arrival: EMS Limitations: no limitations History of Present Illness: HPI Narrative: 79-year-old female who states she has had generalized weakness for months. Patient used her life alert tonight as she was walking in her bathroom and tripped and fell into the bathtub and was unable to get out t. EMS arrived and help her out of bathtub. Patient was hypertensive and she was concerned as she does have a history of aneurysms. She denies any headache currently. She has no pain anywhere. Patient was ambulatory after he got out of the bathtub and EMS states that she was able to walk without any difficulty. She states that she just gets generally weak at times. Complaint: generalized weakness Onset (ago): month(s) Duration: constant Location: generalized Severity: moderate Relieving factors: none Exacerbating factors: none Associated symptoms: Denies chest pain, chills, dysuria, easy bruising, fever(s), nausea or vomiting Review of Systems Const: Denies: fever(s), chills, body aches or change in appetite Eyes: Denies: blurry vision or eye discomfort ENMT: Denies: throat pain or dental pain Card: Denies: chest pain Resp: Denies: dyspnea GI: Denies: abdominal pain, nausea, vomiting or diarrhea : Denies: dysuria Musc: Denies: neck pain or back pain Skin/Breast: Denies: rash Neuro: Reports: weakness in extremities Psych: Denies: depression Alex/Lymph: Denies: easy bruising All/Imm: Denies: urticaria PFSH ED PFSH: Medical History Cholelithiasis DVT (deep venous thrombosis) Gout Hypertension Type 2 diabetes mellitus Surgical History H/O mastectomy Bilateral H/O parathyroidectomy H/O thyroidectomy Family History Other Diabetes Social History Smoking and tobacco status: never smoked Alcohol intake: never Physical Exam Const: COMMON NORMALS: no acute distress, patient oriented x3 and healthy appearing HENMT: COMMON NORMALS: normocephalic and atraumatic HEAD & SCALP: normocephalic and atraumatic Eye: COMMON NORMALS: Equal, round and reactive pupils present and EOMs intact bilaterally PUPIL: Yes Equal, round and reactive pupils present Neck/C-Spine: COMMON NORMALS: full ROM and supple Chest: COMMONS NORMALS: normal inspection of the chest and normal palpation of entire chest wall Resp: COMMON NORMALS: normal respiratory effort, No retractions, No use of accessory muscles and clear to auscultation bilaterally AUSCULTATION: clear to auscultation bilaterally Cardio: COMMON NORMALS: regular rate, regular rhythm and No murmurs present (Cardio) RATE: regular rate RHYTHM: regular rhythm GI: COMMON NORMALS: Normal to inspection, nondistended, normoactive bowel sounds present, Soft to palpation, non-tender and no masses PALPATION: Yes Soft to palpation Extremity: COMMON NORMALS: normal to inspection and full ROM Neuro: COMMON NORMALS: patient oriented x3, moves all extremities and no focal motor deficits Psych: COMMON NORMALS: mental status grossly normal, Normal thought process present and cooperative THOUGHT PROCESS: Normal thought process present Skin: COMMON NORMALS: no rashes or lesions noted and no wounds GENERAL SKIN EXAM: no rashes or lesions noted Course Vital Signs: Vital signs: Vital Signs Temperature 98.2 F 01/01/20 22:55 Pulse Rate 76 01/02/20 04:07 Respiratory Rate 18 01/02/20 04:07 Blood Pressure 168/83 01/02/20 04:07 Pulse Oximetry 100 01/02/20 04:07 MDM - Weakness MDM Narrative: Medical decision making narrative: Patient presents here with weakness along with a fall. Patient was able ambulate here without any problems and lab work including CT are normal. Patient did have high blood pressure which is improved here. Patient is stable for discharge and is to follow-up with primary care doctor in 3 to 5 days return if worsening. Patient understands and agrees to plan. Lab Data: Labs: Lab Results 01/01/20 01/01/20 01/01/20 Range/Units 23:43 23:43 23:43 WBC 8.1 (4.0-10.0) 10^3/ uL RBC 3.93 L (4.1-5.3) 10^6/u L Hgb 9.8 L (11.5-15.3) g/dL Hct 32.8 L (37.0-47.0) % MCV 83.5 (81-99) fL MCH 24.9 L (28.0-34.0) pg MCHC 29.9 L (30.0-36.0) g/dL RDW 18.6 H (12.1-15.1) % Plt Count 340 (130-400) 10^3/c mm MPV 9.6 (7.4-10.4) fL Neut % (Auto) 55.7 % Lymph % (Auto) 30.8 % [place] % (Auto) 8.7 % Eos % (Auto) 3.7 % Baso % (Auto) 0.7 % Neut # (Auto) 4.5 (1.8-7.7) 10^3/u L Lymph # (Auto) 2.5 (0.8-4.8) 10^3/u L [place] # (Auto) 0.7 (0.2-0.9) 10^3/u L Eos # (Auto) 0.3 (0.0-0.8) 10^3/u L Baso # (Auto) 0.1 (0.0-0.1) 10^3/u L Nucleated RBC % (a uto) 0 % Nucleated RBCs # 0.0 /100WBC PT 28.90 H (10.5-13.3) SECO NDS INR 2.61 H (0.8-1.2) Sodium 142 (136-145) mmol/L Potassium 4.2 (3.5-5.1) mmol/L Chloride 102 (98-107) mmol/L Carbon Dioxide 27 (22-29) mmol/L Anion Gap 17.2 (5-19) BUN 22 (8-23) mg/dL Creatinine 1.4 H (0.5-0.9) mg/dL Glucose 127 H (65-115) mg/dL Calculated Osmolal ity 292 (285-295) mOsm/k g Calcium 10.2 (8.5-10.5) mg/dL Total Bilirubin 0.2 (0.15-1.2) mg/dL AST 17 (0-32) U/L ALT 9 (0-33) U/L Alkaline Phosphata se 57 (35-105) IU/L Total Protein 6.7 (6.6-8.7) g/dL Albumin 3.6 (3.5-5.2) g/dL Globulin 3.1 (1.3-4.6) g/dL TSH 0.03 L (0.27-4.20) uIU/ mL Imaging Data^: CXR: Attestation: I personally reviewed and interpreted this imaging study as follows: My impression: no acute abnormality CT Head: Radiologist's impression: [address] [address] [address] Scan Report Signed Patient: Brandy Freitas Unit #: [id number] : 1940 Age/Sex: 79 / F ADM Date: 01/01/20 Loc: ER Room/Bed: Attending Dr: Ordering Provider/Ordering MD: Juan M Mosley MD Date of Service: 01/01/20 Procedure(s): CT head wo con* [id number] Accession Number(s): [id number] Report Number: [id number] PROCEDURE INFORMATION: Exam: CT Head Without Contrast Exam date and time: 01/01/2020 11:03 PM Age: 79 years old Clinical indication: Weakness, extremity; Bilateral TECHNIQUE: Imaging protocol: Computed tomography of the head without contrast. Radiation optimization: All CT scans at this facility use at least one of these dose optimization techniques: automated exposure control; mA and/or kV adjustment per patient size (includes targeted exams where dose is matched to clinical indication); or iterative reconstruction. 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 Moderate diffuse white matter disease likely reflecting chronic microvascular ischemic changes. Ventricles: Normal. No ventriculomegaly. Bones/joints: Left craniotomy changes. Sinuses: Visualized sinuses are unremarkable. No fluid levels. Mastoid air cells: Visualized mastoid air cells are well aerated. Soft tissues: Unremarkable. CT/CT head wo con* [id number] IMPRESSION: 1. Negative for intracranial hemorrhage or mass effect 2. 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 3. Left craniotomy changes. 4. Moderate diffuse white matter disease likely reflecting chronic microvascular ischemic changes. EKG Data^: EKG 1: Attestation: I personally reviewed and interpreted this EKG as follows: EKG interpretation date: 01/02/20 EKG interpretation time: 01:13 Interpretation: nsr hr [address] or t wave abnormalities qrs 93 qtc 460 Discharge Plan Discharge Patient Disposition: Home, Self-Care Clinical Impression: Weakness Hypertension Qualifiers: Hypertension type: essential hypertension Qualified Code(s): I10 - Essential (primary) hypertension Condition: Stable Prescriptions: No Action glipizide 10 mg Tablet Extended Release 24hr 10 mg PO DAILY RF: 0 Vitamin B-12 1,000 mcg Tablet 1,000 mcg PO DAILY RF: 0 lovastatin 10 mg Tablet 10 mg PO QPM RF: 0 Oyster Shell Calcium 500 500 mg calcium (1,250 mg) Tablet 500 mg PO TID RF: 0 gabapentin 300 mg Capsule 300 mg PO BID RF: 0 allopurinol 100 mg Tablet 100 mg PO DAILY RF: 0 carvedilol 3.125 mg Tablet 3.125 mg PO Q12H Qty: 60 RF: 0 levothyroxine 150 mcg Tablet 200 mcg PO DAILY Qty: 30 RF: 0 calcium carbonate 200 mg calcium (500 mg) Tablet,Chewable 500 mg PO TID Qty: 90 RF: 0 calcitriol 0.25 mcg Capsule 0.5 mcg PO DAILY Qty: 30 RF: 0 warfarin 2 mg tablet 2 mg PO .[id number] Qty: 30 RF: 0 warfarin 4 mg tablet See Rx Instructions .ROUTE .COMPLEX Qty: 30 RF: 0 Discharge Orders: Discharge Order (Routine); Ordered 01/02/20 Ordered By: Juan M Mosley Referrals: Mercedes Lawrence PA [Primary Care Provider] - 1-3 days Discharge Diet: Advance as tolerated Discharge Activity: Resume usual activity Patient Instructions: Weakness (ED), Hypertension (ED) Discharge Date/Time: 01/02/20 04:08 Coding Level of Care Code ED Cornice Upholsterer for Chg Fwd Exam Comprehensive
[2020-01-02 00:19] LABS: Basophils # 0.1 10^3/uL (0.0-0.1); Basophils % 0.7 %; Eosinophils # 0.3 10^3/uL (0.0-0.8); Eosinophils % 3.7 %; Hematocrit 32.8 % (37.0-47.0); Hemoglobin 9.8 g/dL (11.5-15.3); Lymphocytes # 2.5 10^3/uL (0.8-4.8); Lymphocytes % 30.8 %; Mean Corpuscular HGB Conc 29.9 g/dL (30.0-36.0); Mean Corpuscular Hemoglobin 24.9 pg (28.0-34.0); Mean Corpuscular Volume 83.5 fL (81-99); Mean Platelet Volume 9.6 fL (7.4-10.4); Monocytes # 0.7 10^3/uL (0.2-0.9); Monocytes % 8.7 %; Neutrophils # 4.5 10^3/uL (1.8-7.7); Neutrophils % 55.7 %; Nucleated Red Blood Cells % 0 %; Platelet Count 340 10^3/cmm (130-400); Red Blood Count 3.93 10^6/uL (4.1-5.3); Red Cell Distribution Width 18.6 % (12.1-15.1); White Blood Count 8.1 10^3/uL (4.0-10.0)
[2020-01-02 00:25] VITALS: BP 199/95; PULSE 114; RESP 17; O2SAT 96
[2020-01-02 00:49] LABS: Alanine Aminotransferase 9 U/L (0-33); Albumin Level 3.6 g/dL (3.5-5.2); Alkaline Phosphatase 57 IU/L (35-105); Anion Gap 17.2 (5-19); Aspartate Amino Transferase 17 U/L (0-32); Blood Urea Nitrogen 22 mg/dL (8-23); Calcium 10.2 mg/dL (8.5-10.5); Carbon Dioxide 27 mmol/L (22-29); Chloride 102 mmol/L (98-107); Globulin 3.1 g/dL (1.3-4.6); Glucose 127 mg/dL (65-115); Osmolality Calculated 292 mOsm/kg (285-295); Potassium 4.2 mmol/L (3.5-5.1); Sodium 142 mmol/L (136-145); Thyroid Stimulating Hormone 0.03 uIU/mL (0.27-4.20); Total Bilirubin 0.2 mg/dL (0.15-1.2); Total Protein 6.7 g/dL (6.6-8.7)
[2020-01-02 01:14] LABS: INR 2.61 (0.8-1.2)
[2020-01-02] MEDS: hyDRALAzine 20 mg/mL INJ 1 mL 10 MG IVP (01:23)
[2020-01-02] MEDS: cloNIDine 0.1 mg Tablet 0.2 MG PO (01:54)
[2020-01-02 01:55] VITALS: BP 213/80; PULSE 82; RESP 18; O2SAT 98
[2020-01-02 03:19] VITALS: BP 188/80; PULSE 78; RESP 19; O2SAT 96
--- NOTE | 2020-01-02 03:20 | PC.NURSE ---
Pt. ambulatory in hallway with walker.
--- NOTE | 2020-01-02 03:36 | PC.NURSE ---
Son called to pick patient up and take her home
[2020-01-02 04:07] VITALS: BP 168/83; PULSE 76; RESP 18; O2SAT 100
== END 2020-01-02 04:08 | disposition home or self-care (01) ==
PROVIDERS: Emergency Provider Emergency Medicine; PCP Physician Assistant
DX: R53.1 Weakness (principal); I10 Essential (primary) hypertension; Z79.01 Long term (current) use of anticoagulants; Z79.84 Long term (current) use of oral hypoglycemic drugs; E11.9 Type 2 diabetes mellitus without complications
CPT/HCPCS: 12345; 70450; 71045; 80053; 84443; 85025; 85610; 93005; 96374; 96375; 99283; J0360

== ENCOUNTER 2020-03-23 16:24 | Inpatient (IN) | payer MEDICARE, OTHER, SELFPAY ==
[2020-03-23] VITALS (14 sets, daily range): BP systolic 142–207; BP diastolic 68–97; PULSE 78–101; RESP 13–47; TEMP 37.1–37.6; O2SAT 94–996; BMI 29.1
--- NOTE | 2020-03-23 16:46 | XRR_ITS ---
PROCEDURE INFORMATION: Exam: XR Chest, 1 View Exam date and time: 03/23/2020 5:05 PM Age: 80 years old Clinical indication: Dyspnea and fever; Patient HX: Covid precautions; Additional info: Dyspnea/fever TECHNIQUE: Imaging protocol: XR of the chest Views: Frontal portable upright view of the chest. COMPARISON: CR XR chest 1V portable [id number] 01/02/2020 12:21 AM FINDINGS: Lungs: Moderate pulmonary hypoexpansion. Stable left basilar pulmonary subsegmental atelectasis. The pulmonary vasculature is exaggerated by inspiratory volume. Pleural space: No pleural effusion. No pneumothorax. Heart/Mediastinum: Stable mild cardiomegaly. Mediastinum: Stable. Bones/joints: Stable. Soft tissues: A skin fold projects over the lateral left chest. XR/XR chest 1V portable [id number] IMPRESSION: 1. Moderate pulmonary hypoexpansion. 2. Stable left basilar pulmonary subsegmental atelectasis. Superimposed pneumonitis is difficult to exclude. Clinical correlation is recommended.
[2020-03-23 17:46] LABS: Basophils % 0.2 %; Hematocrit 26.8 % (37.0-47.0); Hemoglobin 8.1 g/dL (11.5-15.3); Lymphocytes # 0.8 10^3/uL (0.8-4.8); Lymphocytes % 6.5 %; Mean Corpuscular HGB Conc 30.2 g/dL (30.0-36.0); Mean Corpuscular Hemoglobin 24.3 pg (28.0-34.0); Mean Corpuscular Volume 80.5 fL (81-99); Mean Platelet Volume 10.3 fL (7.4-10.4); Monocytes % 8.3 %; Neutrophils # 10.18 10^3/uL (1.8-7.7); Neutrophils % 84.3 %; Nucleated Red Blood Cells % 0 %; Platelet Count 407 10^3/cmm (130-400); Red Blood Count 3.33 10^6/uL (4.1-5.3); Red Cell Distribution Width 17.6 % (12.1-15.1); White Blood Count 12.1 10^3/uL (4.0-10.0)
[2020-03-23 18:06] LABS: Alanine Aminotransferase 8 U/L (0-33); Albumin Level 3.2 g/dL (3.5-5.2); Alkaline Phosphatase 74 IU/L (35-105); Anion Gap 21.9 (5-19); Aspartate Amino Transferase 16 U/L (0-32); Blood Urea Nitrogen 15 mg/dL (8-23); Carbon Dioxide 22 mmol/L (22-29); Chloride 96 mmol/L (98-107); Glucose 183 mg/dL (65-115); Lactate Dehydrogenase 335 U/L (135-214); Lactic Sepsis W/Reflex 1.1 mmol/L (0.5-2.2); Magnesium 1.6 mg/dL (1.7-2.3); Osmolality Calculated 283 mOsm/kg (285-295); Potassium 3.9 mmol/L (3.5-5.1); Sodium 136 mmol/L (136-145); Total Bilirubin 0.5 mg/dL (0.15-1.2); Total Protein 7.2 g/dL (6.6-8.7)
--- NOTE | 2020-03-23 18:06 | W.ED.FEVER ---
Documented by User: Dimitri Green DO 03/24/20 15:57 HPI - Fever General: Chief Complaint: Fever Stated Complaint: FEVER, WEAKNESS, PNEUMONIA Time Seen by Provider: 03/23/20 16:46 History of Present Illness: HPI Narrative: 80-year-old female comes in complaining of not feeling well. 5 days ago she was potentially exposed to COVID. She comes in today with a low-grade fever shortness of breath and cough. In addition to that she has had 2 episodes of coffee-ground emesis and has had melanotic stools. She is not had any bright red blood. She has had a little bit of a low-grade temp she had some slight cough as well her exposure was a very brief encounter with a transportation maintenance worker at the door to pay him. MD elicited complaint: fever Onset (ago): hour(s) Exacerbating factors: nothing Relieving factors: nothing Associated symptoms: Reports abdominal pain, myalgias, nasal congestion and nausea; Deny flank pain, chills, chest pain, confusion, cough, diarrhea, dysuria, extremity pain, headache(s), night sweats, rash, rhinorrhea, short of breath, sinus pain, stiffness, sore throat, vaginal discharge, vomiting, weight loss or other Treatments prior to arrival fever: none Review of Systems Const: Denies: chills or night sweats ENMT: Reports: nasal congestion; Denies: sinus pain Card: Denies: chest pain Resp: Denies: dyspnea, productive cough or non-productive cough GI: Reports: abdominal pain and nausea; Denies: vomiting or diarrhea : Denies: flank pain, dysuria or vaginal discharge Musc: Denies: extremity pain Skin/Breast: Denies: rash or pruritus Neuro: Denies: headache(s) or confusion PFSH ED PFSH: Medical History Breast cancer Bilateral: Right 1990/ Left 1998 Cholelithiasis DVT (deep venous thrombosis) Gout Hemorrhagic stroke Hyperlipidemia Hypertension Osteoarthritis Type 2 diabetes mellitus Surgical History FH: total abdominal hysterectomy and bilateral salpingo-oophorectomy H/O mastectomy Bilateral H/O parathyroidectomy H/O thyroidectomy Thyroidectomy and parathyroidectomy in August 2019 at [facility] for thyroid mass bilaterally History of craniotomy They thought I had metastatic breast cancer but it turned out to be an infarct Family History Other Diabetes Social History Smoking and tobacco status: never smoked Alcohol intake: never Lives independently: Yes Housing: House Physical Exam Const: COMMON NORMALS: no acute distress GENERAL APPEARANCE: cooperative and comfortable HENMT: COMMON NORMALS: normocephalic and atraumatic HEAD & SCALP: normocephalic and atraumatic Eye: COMMON NORMALS: Equal, round and reactive pupils present, EOMs intact bilaterally, conjunctivae normal and no scleral icterus CONJUNCTIVA: Yes conjunctivae normal PUPIL: Yes Equal, round and reactive pupils present Neck/C-Spine: COMMON NORMALS: no JVD Resp: COMMON NORMALS: normal respiratory effort, No retractions, No use of accessory muscles and clear to auscultation bilaterally AUSCULTATION: clear to auscultation bilaterally Cardio: COMMON NORMALS: no JVD, regular rate, regular rhythm and No murmurs present (Cardio) RATE: regular rate RHYTHM: regular rhythm GI: COMMON NORMALS: Soft to palpation and No hepatosplenomegaly present AUSCULTATION: Yes normoactive bowel sounds PALPATION: Yes Soft to palpation, No Tenderness to palpation present (GI), No Guarding due to palpation present (GI) and Yes No hepatosplenomegaly present Extremity: COMMON NORMALS: normal to inspection, capillary refill normal, no clubbing, cyanosis or edema, no calf tenderness and no pedal edema Skin: COMMON NORMALS: no rashes or lesions noted GENERAL SKIN EXAM: no rashes or lesions noted Course Vital Signs: Vital signs: Vital Signs Temperature 98.7 F 03/24/20 13:00 Pulse Rate 66 03/24/20 14:00 Respiratory Rate 25 H 03/24/20 14:00 Blood Pressure 181/70 03/24/20 14:00 Pulse Oximetry 98 03/24/20 14:00 MDM - Fever MDM Narrative: Medical decision making narrative: Transfer to Dr. Mosley at change of shift please see his note for final disposition and final diagnosis. Lab Data: Labs: Lab Results 03/23/20 03/23/20 03/23/20 Range/Units 17:29 17:30 17:30 WBC (4.0-10.0) 10^3/ uL RBC (4.1-5.3) 10^6/u L Hgb (11.5-15.3) g/dL Hct (37.0-47.0) % MCV (81-99) fL MCH (28.0-34.0) pg MCHC (30.0-36.0) g/dL RDW (12.1-15.1) % Plt Count (130-400) 10^3/c mm MPV (7.4-10.4) fL Neut % (Auto) % Lymph % (Auto) % Harmon % (Auto) % Eos % (Auto) % Baso % (Auto) % Neut # (Auto) (1.8-7.7) 10^3/u L Lymph # (Auto) (0.8-4.8) 10^3/u L Harmon # (Auto) (0.2-0.9) 10^3/u L Eos # (Auto) (0.0-0.8) 10^3/u L Baso # (Auto) (0.0-0.1) 10^3/u L Nucleated RBC % (a uto) % Nucleated RBCs # /100WBC PT > 120.00 H (12.1-14.9) SECO NDS INR > 5.00 H (0.8-1.2) APTT > 150.0 H* (23.9-36.7) SECO NDS Fibrinogen 850 H (174-498) mg/dL Sodium 136 (136-145) mmol/L Potassium 3.9 (3.5-5.1) mmol/L Chloride 96 L (98-107) mmol/L Carbon Dioxide 22 (22-29) mmol/L Anion Gap 21.9 H (5-19) BUN 15 (8-23) mg/dL Creatinine 1.1 H (0.5-0.9) mg/dL GFR Calculation Not Reportable Glucose 183 H (65-115) mg/dL Calculated Osmolal ity 283 L (285-295) mOsm/k g Lactic Acid (0.5-2.2) mmol/L Calcium 6.0 L (8.5-10.5) mg/dL Magnesium 1.6 L (1.7-2.3) mg/dL Total Bilirubin 0.5 (0.15-1.2) mg/dL AST 16 (0-32) U/L ALT 8 (0-33) U/L Alkaline Phosphata se 74 (35-105) IU/L Lactate Dehydrogen ase 335 H (135-214) U/L C-Reactive Protein 255.1 H (0.0-4.9) mg/L Total Protein 7.2 (6.6-8.7) g/dL Albumin 3.2 L (3.5-5.2) g/dL Globulin 4.0 (1.3-4.6) g/dL Influenza Type A A g (Negative) Influenza Type B A g (Negative) SARS-CoV-2 Ag (Rap id) Negative (Negative) Blood Type Rho(D) Type Antibody Screen Crossmatch 03/23/20 03/23/20 03/23/20 Range/Units 17:30 17:30 17:30 WBC 12.1 H (4.0-10.0) 10^3/ uL RBC 3.33 L (4.1-5.3) 10^6/u L Hgb 8.1 L (11.5-15.3) g/dL Hct 26.8 L (37.0-47.0) % MCV 80.5 L (81-99) fL MCH 24.3 L (28.0-34.0) pg MCHC 30.2 (30.0-36.0) g/dL RDW 17.6 H (12.1-15.1) % Plt Count 407 H (130-400) 10^3/c mm MPV 10.3 (7.4-10.4) fL Neut % (Auto) 84.3 % Lymph % (Auto) 6.5 % Harmon % (Auto) 8.3 % Eos % (Auto) 0.0 % Baso % (Auto) 0.2 % Neut # (Auto) 10.18 H (1.8-7.7) 10^3/u L Lymph # (Auto) 0.8 (0.8-4.8) 10^3/u L Harmon # (Auto) 1.0 H (0.2-0.9) 10^3/u L Eos # (Auto) 0.0 (0.0-0.8) 10^3/u L Baso # (Auto) 0.0 (0.0-0.1) 10^3/u L Nucleated RBC % (a uto) 0 % Nucleated RBCs # 0.0 /100WBC PT (12.1-14.9) SECO NDS INR (0.8-1.2) APTT (23.9-36.7) SECO NDS Fibrinogen (174-498) mg/dL Sodium (136-145) mmol/L Potassium (3.5-5.1) mmol/L Chloride (98-107) mmol/L Carbon Dioxide (22-29) mmol/L Anion Gap (5-19) BUN (8-23) mg/dL Creatinine (0.5-0.9) mg/dL GFR Calculation Glucose (65-115) mg/dL Calculated Osmolal ity (285-295) mOsm/k g Lactic Acid 1.1 (0.5-2.2) mmol/L Calcium (8.5-10.5) mg/dL Magnesium (1.7-2.3) mg/dL Total Bilirubin (0.15-1.2) mg/dL AST (0-32) U/L ALT (0-33) U/L Alkaline Phosphata se (35-105) IU/L Lactate Dehydrogen ase (135-214) U/L C-Reactive Protein (0.0-4.9) mg/L Total Protein (6.6-8.7) g/dL Albumin (3.5-5.2) g/dL Globulin (1.3-4.6) g/dL Influenza Type A A g (Negative) Influenza Type B A g (Negative) SARS-CoV-2 Ag (Rap id) (Negative) Blood Type A Positive Rho(D) Type Positive Antibody Screen Negative Crossmatch See Detail 03/23/20 03/23/20 03/23/20 Range/Units 19:50 19:50 20:15 WBC (4.0-10.0) 10^3/ uL RBC (4.1-5.3) 10^6/u L Hgb 7.5 L (11.5-15.3) g/dL Hct 24.8 L (37.0-47.0) % MCV (81-99) fL MCH (28.0-34.0) pg MCHC (30.0-36.0) g/dL RDW (12.1-15.1) % Plt Count (130-400) 10^3/c mm MPV (7.4-10.4) fL Neut % (Auto) % Lymph % (Auto) % Harmon % (Auto) % Eos % (Auto) % Baso % (Auto) % Neut # (Auto) (1.8-7.7) 10^3/u L Lymph # (Auto) (0.8-4.8) 10^3/u L Harmon # (Auto) (0.2-0.9) 10^3/u L Eos # (Auto) (0.0-0.8) 10^3/u L Baso # (Auto) (0.0-0.1) 10^3/u L Nucleated RBC % (a uto) % Nucleated RBCs # /100WBC PT > 120.00 H (12.1-14.9) SECO NDS INR > 5.00 H (0.8-1.2) APTT > 150.0 H* (23.9-36.7) SECO NDS Fibrinogen (174-498) mg/dL Sodium (136-145) mmol/L Potassium (3.5-5.1) mmol/L Chloride (98-107) mmol/L Carbon Dioxide (22-29) mmol/L Anion Gap (5-19) BUN (8-23) mg/dL Creatinine (0.5-0.9) mg/dL GFR Calculation Glucose (65-115) mg/dL Calculated Osmolal ity (285-295) mOsm/k g Lactic Acid (0.5-2.2) mmol/L Calcium (8.5-10.5) mg/dL Magnesium (1.7-2.3) mg/dL Total Bilirubin (0.15-1.2) mg/dL AST (0-32) U/L ALT (0-33) U/L Alkaline Phosphata se (35-105) IU/L Lactate Dehydrogen ase (135-214) U/L C-Reactive Protein (0.0-4.9) mg/L Total Protein (6.6-8.7) g/dL Albumin (3.5-5.2) g/dL Globulin (1.3-4.6) g/dL Influenza Type A A g Negative (Negative) Influenza Type B A g Negative (Negative) SARS-CoV-2 Ag (Rap id) (Negative) Blood Type Rho(D) Type Antibody Screen Crossmatch Discharge Plan Discharge Patient Disposition: Admitted As Inpatient Admit Provider: Lucas Price Clinical Impression: Elevated INR Pneumonia Qualifiers: Pneumonia type: due to unspecified organism Laterality: unspecified laterality Lung location: unspecified part of lung Qualified Code(s): J18.9 - Pneumonia, unspecified organism GI bleed Qualifiers: GI bleed type/associated pathology: unspecified gastrointestinal hemorrhage type Qualified Code(s): K92.2 - Gastrointestinal hemorrhage, unspecified Condition: Stable Referrals: [facility] [Outside] Discharge Date/Time: 03/23/20 22:36 Coding Level of Care Code ED Parking Meter Attendant for Chg Fwd Documented by User: Juan M Mosley MD 03/23/20 21:42 HPI - Fever General: Chief Complaint: Fever Stated Complaint: FEVER, WEAKNESS, PNEUMONIA Time Seen by Provider: 03/23/20 16:46 PFSH ED PFSH: Medical History Breast cancer Bilateral: Right 1990/ Left 1998 Cholelithiasis DVT (deep venous thrombosis) Gout Hemorrhagic stroke Hyperlipidemia Hypertension Osteoarthritis Type 2 diabetes mellitus Surgical History FH: total abdominal hysterectomy and bilateral salpingo-oophorectomy H/O mastectomy Bilateral H/O parathyroidectomy H/O thyroidectomy Thyroidectomy and parathyroidectomy in August 2019 at [facility] for thyroid mass bilaterally History of craniotomy They thought I had metastatic breast cancer but it turned out to be an infarct Family History Other Diabetes Social History Smoking and tobacco status: never smoked Alcohol intake: never Lives independently: Yes Housing: House Course Vital Signs: Vital signs: Vital Signs Temperature 98.7 F 03/24/20 13:00 Pulse Rate 66 03/24/20 14:00 Respiratory Rate 25 H 03/24/20 14:00 Blood Pressure 181/70 03/24/20 14:00 Pulse Oximetry 98 03/24/20 14:00 MDM - Fever MDM Narrative: Medical decision making narrative: Brandy presents here with fever along with cough and is found to have a right upper lobe pneumonia. Patient is also anemic with a slight GI bleed likely from elevated INR. Will transfuse FFP for her INR and will also transfuse her PRBCs that she is become anemic. I spoke to Dr. Young who is consulted. Dr. Campbell is seen patient will admit to the ICU. Patient's blood pressures here been stable. Lab Data: Labs: Lab Results 03/23/20 03/23/20 03/23/20 Range/Units 17:29 17:30 17:30 WBC (4.0-10.0) 10^3/ uL RBC (4.1-5.3) 10^6/u L Hgb (11.5-15.3) g/dL Hct (37.0-47.0) % MCV (81-99) fL MCH (28.0-34.0) pg MCHC (30.0-36.0) g/dL RDW (12.1-15.1) % Plt Count (130-400) 10^3/c mm MPV (7.4-10.4) fL Neut % (Auto) % Lymph % (Auto) % Harmon % (Auto) % Eos % (Auto) % Baso % (Auto) % Neut # (Auto) (1.8-7.7) 10^3/u L Lymph # (Auto) (0.8-4.8) 10^3/u L Harmon # (Auto) (0.2-0.9) 10^3/u L Eos # (Auto) (0.0-0.8) 10^3/u L Baso # (Auto) (0.0-0.1) 10^3/u L Nucleated RBC % (a uto) % Nucleated RBCs # /100WBC PT > 120.00 H (12.1-14.9) SECO NDS INR > 5.00 H (0.8-1.2) APTT > 150.0 H* (23.9-36.7) SECO NDS Fibrinogen 850 H (174-498) mg/dL Sodium 136 (136-145) mmol/L Potassium 3.9 (3.5-5.1) mmol/L Chloride 96 L (98-107) mmol/L Carbon Dioxide 22 (22-29) mmol/L Anion Gap 21.9 H (5-19) BUN 15 (8-23) mg/dL Creatinine 1.1 H (0.5-0.9) mg/dL GFR Calculation Not Reportable Glucose 183 H (65-115) mg/dL Calculated Osmolal ity 283 L (285-295) mOsm/k g Lactic Acid (0.5-2.2) mmol/L Calcium 6.0 L (8.5-10.5) mg/dL Magnesium 1.6 L (1.7-2.3) mg/dL Total Bilirubin 0.5 (0.15-1.2) mg/dL AST 16 (0-32) U/L ALT 8 (0-33) U/L Alkaline Phosphata se 74 (35-105) IU/L Lactate Dehydrogen ase 335 H (135-214) U/L C-Reactive Protein 255.1 H (0.0-4.9) mg/L Total Protein 7.2 (6.6-8.7) g/dL Albumin 3.2 L (3.5-5.2) g/dL Globulin 4.0 (1.3-4.6) g/dL Influenza Type A A g (Negative) Influenza Type B A g (Negative) SARS-CoV-2 Ag (Rap id) Negative (Negative) Blood Type Rho(D) Type Antibody Screen Crossmatch 03/23/20 03/23/20 03/23/20 Range/Units 17:30 17:30 17:30 WBC 12.1 H (4.0-10.0) 10^3/ uL RBC 3.33 L (4.1-5.3) 10^6/u L Hgb 8.1 L (11.5-15.3) g/dL Hct 26.8 L (37.0-47.0) % MCV 80.5 L (81-99) fL MCH 24.3 L (28.0-34.0) pg MCHC 30.2 (30.0-36.0) g/dL RDW 17.6 H (12.1-15.1) % Plt Count 407 H (130-400) 10^3/c mm MPV 10.3 (7.4-10.4) fL Neut % (Auto) 84.3 % Lymph % (Auto) 6.5 % Harmon % (Auto) 8.3 % Eos % (Auto) 0.0 % Baso % (Auto) 0.2 % Neut # (Auto) 10.18 H (1.8-7.7) 10^3/u L Lymph # (Auto) 0.8 (0.8-4.8) 10^3/u L Harmon # (Auto) 1.0 H (0.2-0.9) 10^3/u L Eos # (Auto) 0.0 (0.0-0.8) 10^3/u L Baso # (Auto) 0.0 (0.0-0.1) 10^3/u L Nucleated RBC % (a uto) 0 % Nucleated RBCs # 0.0 /100WBC PT (12.1-14.9) SECO NDS INR (0.8-1.2) APTT (23.9-36.7) SECO NDS Fibrinogen (174-498) mg/dL Sodium (136-145) mmol/L Potassium (3.5-5.1) mmol/L Chloride (98-107) mmol/L Carbon Dioxide (22-29) mmol/L Anion Gap (5-19) BUN (8-23) mg/dL Creatinine (0.5-0.9) mg/dL GFR Calculation Glucose (65-115) mg/dL Calculated Osmolal ity (285-295) mOsm/k g Lactic Acid 1.1 (0.5-2.2) mmol/L Calcium (8.5-10.5) mg/dL Magnesium (1.7-2.3) mg/dL Total Bilirubin (0.15-1.2) mg/dL AST (0-32) U/L ALT (0-33) U/L Alkaline Phosphata se (35-105) IU/L Lactate Dehydrogen ase (135-214) U/L C-Reactive Protein (0.0-4.9) mg/L Total Protein (6.6-8.7) g/dL Albumin (3.5-5.2) g/dL Globulin (1.3-4.6) g/dL Influenza Type A A g (Negative) Influenza Type B A g (Negative) SARS-CoV-2 Ag (Rap id) (Negative) Blood Type A Positive Rho(D) Type Positive Antibody Screen Negative Crossmatch See Detail 03/23/20 03/23/20 03/23/20 Range/Units 19:50 19:50 20:15 WBC (4.0-10.0) 10^3/ uL RBC (4.1-5.3) 10^6/u L Hgb 7.5 L (11.5-15.3) g/dL Hct 24.8 L (37.0-47.0) % MCV (81-99) fL MCH (28.0-34.0) pg MCHC (30.0-36.0) g/dL RDW (12.1-15.1) % Plt Count (130-400) 10^3/c mm MPV (7.4-10.4) fL Neut % (Auto) % Lymph % (Auto) % Harmon % (Auto) % Eos % (Auto) % Baso % (Auto) % Neut # (Auto) (1.8-7.7) 10^3/u L Lymph # (Auto) (0.8-4.8) 10^3/u L Harmon # (Auto) (0.2-0.9) 10^3/u L Eos # (Auto) (0.0-0.8) 10^3/u L Baso # (Auto) (0.0-0.1) 10^3/u L Nucleated RBC % (a uto) % Nucleated RBCs # /100WBC PT > 120.00 H (12.1-14.9) SECO NDS INR > 5.00 H (0.8-1.2) APTT > 150.0 H* (23.9-36.7) SECO NDS Fibrinogen (174-498) mg/dL Sodium (136-145) mmol/L Potassium (3.5-5.1) mmol/L Chloride (98-107) mmol/L Carbon Dioxide (22-29) mmol/L Anion Gap (5-19) BUN (8-23) mg/dL Creatinine (0.5-0.9) mg/dL GFR Calculation Glucose (65-115) mg/dL Calculated Osmolal ity (285-295) mOsm/k g Lactic Acid (0.5-2.2) mmol/L Calcium (8.5-10.5) mg/dL Magnesium (1.7-2.3) mg/dL Total Bilirubin (0.15-1.2) mg/dL AST (0-32) U/L ALT (0-33) U/L Alkaline Phosphata se (35-105) IU/L Lactate Dehydrogen ase (135-214) U/L C-Reactive Protein (0.0-4.9) mg/L Total Protein (6.6-8.7) g/dL Albumin (3.5-5.2) g/dL Globulin (1.3-4.6) g/dL Influenza Type A A g Negative (Negative) Influenza Type B A g Negative (Negative) SARS-CoV-2 Ag (Rap id) (Negative) Blood Type Rho(D) Type Antibody Screen Crossmatch Imaging Data^: CT Chest: Radiologist's impression: [address] [place], [place] [id number], [place] [address] CT Scan Report Signed Patient: Brandy Freitas Unit #: [id number] : 1940 Age/Sex: 80 / F ADM Date: 03/23/20 Loc: ER Room/Bed: Attending Dr: Ordering Provider/Ordering MD: Dimitri Green DO Date of Service: 03/23/20 Procedure(s): CT angio chest PE protcl [id number] Accession Number(s): [id number] Report Number: [id number] PROCEDURE INFORMATION: Exam: CT Angiography Chest With Contrast Exam date and time: 03/23/2020 6:27 PM Age: 80 years old Clinical indication: Fever; Prior surgery; Surgery type: Double mastectomy, thyroid; Additional info: Dyspnea TECHNIQUE: Imaging protocol: Computed tomographic angiography of the chest with intravenous contrast. 3D rendering (Not supervised by radiologist): MIP and/or 3D reconstructed images were created by the technologist. Radiation optimization: All CT scans at this facility use at least one of these dose optimization techniques: automated exposure control; mA and/or kV adjustment per patient size (includes targeted exams where dose is matched to clinical indication); or iterative reconstruction. Contrast material: VISI 320; Contrast volume: 69 ml; Contrast route: INTRAVENOUS (IV); COMPARISON: CT angio chest w abd pel w con 09/02/2019 9:08 PM RADIATION DOSE METRICS: Total DLP (mGy-cm): 582.5 FINDINGS: Pulmonary arteries: Normal. No pulmonary emboli. Aorta: Mild aneurysmal dilatation of the ascending thoracic aorta measuring 4.0 cm. Lungs: Subtle mixed tree-in-bud and tiny ground-glass opacities in the right upper lobe. Mild atelectasis in the posterior lower lobes and lingula. Pleural space: Small left and trace right pleural effusions. Heart: Mild cardiomegaly. Mediastinal space: Hiatal hernia. Lymph nodes: Stable mediastinal lymph nodes measuring up to 1.2 cm short axis which are most likely reactive. Gallbladder and bile ducts: Cholelithiasis. Bones/joints: Curvature and degenerative changes of the thoracic spine. No compression fracture. Soft tissues: Bilateral mastectomy changes. CT/CT angio chest PE protcl [id number] IMPRESSION: 1. No evidence for pulmonary embolus. 2. Tree-in-bud and small ground-glass opacities in the right upper lobe most likely indicates pneumonia. 3. Small left and trace right pleural effusions. Critical Care Time Critical Care Time: Critical Care Time: Yes Total Critical Care Time: 36 Attestation: This case had a high probability of a clinically significant, sudden, or life threatening deterioration of this patient's condition which required my full and direct attention, intervention and personal management. Discharge Plan Discharge Patient Disposition: Admitted As Inpatient Admit Provider: Lucas Price Clinical Impression: Elevated INR Pneumonia Qualifiers: Pneumonia type: due to unspecified organism Laterality: unspecified laterality Lung location: unspecified part of lung Qualified Code(s): J18.9 - Pneumonia, unspecified organism GI bleed Qualifiers: GI bleed type/associated pathology: unspecified gastrointestinal hemorrhage type Qualified Code(s): K92.2 - Gastrointestinal hemorrhage, unspecified Condition: Stable Referrals: [facility] [Outside] Discharge Date/Time: 03/23/20 22:36 Coding Level of Care Code ED Parking Meter Attendant for Iqra Gentile
[2020-03-23 18:15] LABS: SARS Covid-2 Antigen Negative (Negative)
[2020-03-23 18:33] LABS: C Reactive Protein 255.1 mg/L (0.0-4.9)
[2020-03-23 18:41] LABS: Fibrinogen 850 mg/dL (174-498); INR > 5.00 (0.8-1.2); Prothrombin Time > 120.00 SECONDS (12.1-14.9)
[2020-03-23 18:43] LABS: Partial Thromboplastin Time > 150.0 SECONDS (23.9-36.7)
[2020-03-23] MEDS: iodixanol 320 mg/mL 100mL Btl IV (18:50)
[2020-03-23] MEDS: pantoprazole 40 MG in sodium chloride 0.9% (plus) 100 ML 20 MG IV (19:09)
[2020-03-23] MEDS: pantoprazole 40 mg SDV 80 MG IVP (19:09)
[2020-03-23] MEDS: cefTRIAXone 1,000 MG in sodium chloride 0.9% (plus) 50 ML 100 MG IV (20:09)
[2020-03-23] MEDS: morphine 4 mg/mL SDV 1 mL IVP (20:20)
[2020-03-23] MEDS: azithromycin 500 MG in sodium chloride 0.9% 250 ML 250 MG IV (20:20)
[2020-03-23 20:32] LABS: INR > 5.00 (0.8-1.2); Prothrombin Time > 120.00 SECONDS (12.1-14.9)
[2020-03-23 20:37] LABS: Partial Thromboplastin Time > 150.0 SECONDS (23.9-36.7)
[2020-03-23 20:52] LABS: Hematocrit 24.8 % (37.0-47.0); Hemoglobin 7.5 g/dL (11.5-15.3)
[2020-03-23 21:01] LABS: Influenza A by IFA Negative (Negative); Influenza B by IFA Negative (Negative)
--- NOTE | 2020-03-23 21:06 | P.HP_ITS ---
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 Patient is stating that she is been feeling very tired and lethargic for quite some time, when her azavnxum-wp-sqe visited her she did not have any energy to go out with her, she did not notice any fever at home, she would get short of breath on mild exertional activities going from one room to another, today she started experiencing nausea and vomited couple of times, her vomiting content was coffee-ground in color, she did not notice any dark- colored stools which she is attributing to different color of her toilet bowl, she is compliant with her medications, recently she has started to eat more tomatoes. She is denying chest pain, palpitations, dysuria, abdominal pain endorsing fatigue, lethargy, hematemesis. She lives alone and manages her daily activities on her own. Diagnostic in the ER revealed worsening anemia, hemodynamically stable, 2 units PRBC ordered, for hypercalcemia calcium IV ordered, right upper lobe pneumonia, ceftriaxone, azithromycin initiated, rectal exam done by myself revealed FOBT positive stool, Dr. Young consulted Review of Systems Const: Reports: chills, body aches, change in appetite and fatigue; Denies: fever(s) Eyes: Denies: change in vision ENMT: Denies: throat pain Card: Denies: chest pain Resp: Reports: dyspnea and non-productive cough GI: Reports: abdominal pain, nausea, vomiting and diarrhea : Denies: flank pain Musc: Denies: neck pain Skin/Breast: Reports: new lesions and lesions Neuro: Denies: headache(s) Psych: Denies: anxiety Endo: Denies: polyuria Alex/Lymph: Denies: easy bruising All/Imm: Denies: urticaria Medications/Allergies Home Medications Medication Instructions Recorded Confirmed Last Taken Type allopurinol 100 mg PO DAILY 02/12/1603/23/20 03/22/20 History cyanocobalamin (vitamin B-12) 1,000 mcg PO DAILY 09/03/19 03/23/20 03/22/20 History [Vitamin B-12] gabapentin 300 mg PO BID 09/03/19 03/23/20 03/22/20 History glipizide 10 mg PO DAILY 09/03/19 03/23/20 03/22/20 History lovastatin 10 mg PO QPM 09/03/19 03/23/20 03/22/20 History calcitriol 0.5 mcg PO DAILY #30 cap 09/06/19 03/23/20 03/22/20 Rx carvedilol 3.125 mg PO Q12H #60 tab 09/06/19 03/23/20 03/22/20 Rx amlodipine 5 mg PO DAILY 03/23/20 03/23/20 03/22/20 History citalopram 10 mg PO BID 03/23/20 03/23/20 03/22/20 History levothyroxine 150 mcg PO DAILY 03/23/20 03/23/20 03/22/20 History pioglitazone 30 mg PO DAILY 03/23/20 03/23/20 03/22/20 History warfarin 3 mg PO . COMPLEX 03/23/20 03/23/20 03/22/20 History warfarin See Rx Instructions .ROUTE .COMPLEX 03/23/20 03/23/20 03/18/20 History Allergies Allergy/AdvReac Type Severity Reaction Status Date / Time Sulfa (Sulfonamide Allergy Unknown Verified 03/23/20 18:45 Antibiotics) tape Allergy Unknown Uncoded 09/02/19 19:36 PFSH Acute PFSH: Medical History Cholelithiasis DVT (deep venous thrombosis) Gout Hypertension Type 2 diabetes mellitus Surgical History H/O mastectomy Bilateral H/O parathyroidectomy H/O thyroidectomy Thyroidectomy and parathyroidectomy in August 2019 at [facility] for thyroid mass bilaterally Family History Other Diabetes Social History (Updated 03/23/20 @ 23:30 by Lucas Price MD) Smoking and tobacco status: never smoked Alcohol intake: never Lives independently: Yes Housing: House Vitals/I&O/Wt Last Vital Signs Temp 99.7 F H 03/23/20 16:37 Pulse 87 03/23/20 20:49 Resp 16 03/23/20 20:49 BP 165/90 03/23/20 20:49 Pulse Ox 97 03/23/20 20:49 Weight last 48 hrs Weight 79.379 kg Physical Exam Narrative: EXAM NARRATIVE: Very pleasant elderly female Dried blood around her oral orifice FOBT positive rectal exam S1, S2 no tachycardia heart failure Abdomen soft, nondistended, bowel sounds sluggish Lungs are clear to auscultation Petechia purpura of left extremities Bilateral mastectomy without significant swelling of her arms(patient is stating that she had lymph nodes taken only from her right arm) EOMI, PERRLA GCS 15 Appropriate mood and affect No lower extremity gangrene or ulcer No signs of tetany Data : 03/23/20 23:09 03/23/20 17:30 Micro: Microbiology 03/23/20 17:32 Blood Culture - Preliminary Blood SPECIMEN COLLECTED 03/23/20 17:30 Blood Culture - Preliminary Blood SPECIMEN COLLECTED A&P Assessment and plan (1) Upper GI bleed: Status: Acute (2) Supratherapeutic INR: Status: Acute (3) Melena: Status: Acute (4) Acute kidney injury: Status: Acute (5) DVT (deep venous thrombosis): Status: Acute (6) Type 2 diabetes mellitus: Status: Acute (7) Hypocalcemia: Status: Acute (8) Community acquired pneumonia: Status: Acute Additional A&P Information Acute blood loss anemia Supratherapeutic INR secondary to Coumadin and dietary indiscretion FOBT positive rectal exam Hematemesis No history of liver cirrhosis, hepatitis C or portal hypertension I believe her hematemesis is secondary to supratherapeutic INR with potential upper GI bleeding ulcer, Dr. Young consulted, currently on Protonix 40 IV twice daily, n.p.o. Supratherapeutic INR with active bleeding Patient has received 1 unit of FFP, I would give 1 dose of vitamin K, 2 units of PRBC ordered Protonix 40 IV twice daily Hold Coumadin Acute on chronic hypocalcemia: I would start her on IV calcium replenishment no active signs of tetany or QT prolongation Community-acquired pneumonia without sepsis Leukocytosis without tachycardia, tachypnea or hypoxia Treat with ceftriaxone and azithromycin, COVID antigen negative NANO secondary to vomiting and hydration Anticipate improvement with fluid resuscitation Full code N.p.o. DVT prophylaxis contraindicated Attestations Medical Necessity Statement*: Anticipating stay in the hospital cross more than 2 midnights continued ICU monitoring for acute blood loss anemia with supratherapeutic INR requiring blood transfusion, antibiotics for community- acquired pneumonia Time Spent in Patient Care: (>than 50% of time spent in counselling and/or direct pt care on unit) . 50mins Coding Level of Care Code Acute Trench Pipe Layer for Chg Fwd Diagnoses Upper GI bleed K92.2 Supratherapeutic INR R79.1 Melena K92.1 Acute kidney injury N17.9 DVT (deep venous thrombosis) I82.409 Type 2 diabetes mellitus E11.9 Hypocalcemia E83.51 Community acquired pneumonia J18.9
[2020-03-23] MEDS: pantoprazole 40 mg SDV IVP (23:14)
[2020-03-23] MEDS: magnesium sulfate premix 2 GM/50 ML PIGGYBACK IV (23:15)
[2020-03-23] MEDS: dextrose 5%-sod chloride 0.45% 1,000 ML 30 ML IV (23:15)
[2020-03-23 23:18] LABS: Hematocrit 23.4 % (37.0-47.0)
[2020-03-23 23:20] LABS: Ionized Calcium 0.7 mmol/L (1.1-1.4)
[2020-03-24] VITALS (34 sets, daily range): BP systolic 153–210; BP diastolic 65–85; PULSE 63–84; RESP 16–32; TEMP 36.8–37.3; O2SAT 92–99
[2020-03-24] MEDS: HYDROmorphone 1 mg/mL INJ 1 mL IVP (00:05)
[2020-03-24] MEDS: sodium chloride 0.9% (100 ml) 100 ML ×2 (00:59→04:34)
--- NOTE | 2020-03-24 01:15 | PC.NURSE ---
Admit Note Patient arrived from ED and placed into ICU 3 bed with x4 max assist. Stated her legs were hurting and stiff. 1st unit of FFP infusing. Other 3 FFP and 2 PRBCs ready to be started from blood bank. Patient is alert and oriented. Able to follow commands and direction. Oriented patient to ICU room, call light and physician orders. NPO order at this time and verbalizes understanding. Patient also stated that she has not received any of her home medications today. She is slightly hypertensive. See vitals assessment. Dr. Price aware and was notified on admit. No further questions or concerns at this time.
--- NOTE | 2020-03-24 07:23 | P.CONIM_ITS ---
Providers/Reason For Consult Consulting Physican/Specialty*: General Surgery Tha Young MD Reason for Consult*: Anemia secondary to blood loss on anticoagulation. Attending Physician: Lucas Price MD Primary Care Provider: Mercedes Lawrence History of Present Illness History of Present Illness Brandy Freitas is a 80 year old female admitted yesterday with a supratherapeutic INR secondary to Coumadin. The patient was also found to be somewhat anemic and was transfused last night. She says that she has been feeling very fatigued over the last day or 2 and ended up getting nauseated yesterday. She vomited a couple of times and thought the material looked somewhat like coffee grounds. She is not sure what her stools have looked like because she has a blue bleach tablet in her toilet bowl and she cannot see what her stool looks like on account of the water coloration. Nevertheless, she says she usually gets her INR checked once a month but apparently skipped this last month because her son, who usually takes her, was very busy. She has not been taking her Coumadin any differently than normal. She has not had any recent abdominal pain. She does not recall ever having any endoscopy. The patient does not use NSAIDs; they told me not to because of my Coumadin. She does take Tylenol on occasion for leg aches. She has no known history of peptic ulcer disease. Review of Systems General: Reports: 10 or more systems reviewed and unremarkable except in HPI and below Const: Reports: fatigue GI: Reports: nausea and vomiting; Denies: abdominal pain Musc: Reports: extremity pain (History of leg pains) Meds/Allergies Home Medications and Allergies Home Medications Medication Instructions Recorded Confirmed Last Taken Type allopurinol 100 mg PO DAILY 09/03/19 03/23/20 03/22/20 History cyanocobalamin (vitamin B-12) 1,000 mcg PO DAILY 09/03/19 03/23/20 03/22/20 History [Vitamin B-12] gabapentin 300 mg PO BID 09/03/19 03/23/20 03/22/20 History glipizide 10 mg PO DAILY 09/03/19 03/23/20 03/22/20 History lovastatin 10 mg PO QPM 09/03/19 03/23/20 03/22/20 History calcitriol 0.5 mcg PO DAILY #30 cap 09/06/19 03/23/20 03/22/20 Rx carvedilol 3.125 mg PO Q12H #60 tab 09/06/19 03/23/20 03/22/20 Rx amlodipine 5 mg PO DAILY 03/23/20 03/23/20 03/22/20 History citalopram 10 mg PO BID 03/23/20 03/23/20 03/22/20 History levothyroxine 150 mcg PO DAILY 03/23/20 03/23/20 03/22/20 History pioglitazone 30 mg PO DAILY 03/23/20 03/23/20 03/22/20 History warfarin 3 mg PO . COMPLEX 03/23/20 03/23/20 03/22/20 History warfarin See Rx Instructions .ROUTE .COMPLEX 03/23/20 03/23/20 03/18/20 History Allergies Allergy/AdvReac Type Severity Reaction Status Date / Time Sulfa (Sulfonamide Allergy Rash Verified 03/24/20 07:32 Antibiotics) tape Allergy Rash Uncoded 03/24/20 07:32 Current Medications Current Medications Generic Name Dose Route Start Last Admin Trade Name Freq PRN Reason Stop Dose Admin Hydromorphone HCl 1 mg 03/23/20 23:21 03/24/20 00:05 Dilaudid Inj IVP 1 mg Q4H PRN Administration Painpain Dextrose/Sodium Chloride 1,000 mls @ 30 mls/hr 03/23/20 22:59 03/23/20 23:15 Dextrose 5%-Sod Chloride 0.45% IV 30 mls/hr .Q24H LEAH Administration Pantoprazole Sodium 40 mg 03/23/20 22:59 03/23/20 23:14 Protonix IVP 40 mg Q12H LEAH Administration PFSH Acute PFSH: Medical History (Updated 03/24/20 @ 07:28 by Tha Young MD) Breast cancer Bilateral: Right 1990/ Left 1998 Cholelithiasis DVT (deep venous thrombosis) Gout Hemorrhagic stroke Hyperlipidemia Hypertension Osteoarthritis Type 2 diabetes mellitus Surgical History (Updated 03/24/20 @ 07:28 by Tha Young MD) FH: total abdominal hysterectomy and bilateral salpingo-oophorectomy H/O mastectomy Bilateral H/O parathyroidectomy H/O thyroidectomy Thyroidectomy and parathyroidectomy in August 2019 at [facility] for thyroid mass bilaterally History of craniotomy They thought I had metastatic breast cancer but it turned out to be an infarct Family History Other Diabetes Social History (Updated 03/23/20 @ 23:30 by Lucas Price MD) Smoking and tobacco status: never smoked Alcohol intake: never Lives independently: Yes Housing: House Vitals/I&O/Wt Last Vital Signs Temp 98.9 F 03/24/20 05:00 Pulse 71 03/24/20 06:43 Resp 22 H 03/24/20 06:43 BP 179/80 03/24/20 06:43 Pulse Ox 96 03/24/20 06:43 03/23/20 03/24/20 03/24/20 22:59 06:59 14:59 Intake Total 0 / 1631 1631 / 1631 Balance 0 / 1631 1631 / 1631 Weight last 48 hrs Weight 175 lb Physical Exam Narrative: EXAM NARRATIVE: The patient was encountered in the ICU. She does not appear to be in any acute distress. She is hypertensive. The pupils seem equal. No carotid bruits are heard. The lungs are clear anteriorly. The heart is regular. The abdomen reveals bowel sounds and is soft and nontender. No obvious masses are palpated. The extremities reveal no edema. Neurologically the patient can move all limbs to command. Data Micro: Micro: Microbiology 03/23/20 17:32 Blood Culture - Pr eliminary Blood SPECIMEN COLLE ADY 03/23/20 17:30 Blood Culture - Pr eliminary Blood SPECIMEN [facility] A&P Assessment and plan (1) Upper GI bleed: The above laboratory studies are from last night. Labs are currently being repeated now since transfusions have just been completed. I do suspect the patient has been having some bleeding from her upper GI tract, but primarily secondary to her supratherapeutic INR. I think we can observe her for now and if she has any ongoing signs of blood loss following correction of her coagulation factors, then endoscopy could be considered. Status: Acute Consult Attestations Medical Necessity Statement: See admitting service's notation. 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
[2020-03-24 08:01] LABS: Basophils % 0.2 %; Hematocrit 28.3 % (37.0-47.0); Lymphocytes # 1.1 10^3/uL (0.8-4.8); Mean Corpuscular HGB Conc 31.8 g/dL (30.0-36.0); Mean Corpuscular Hemoglobin 25.6 pg (28.0-34.0); Mean Corpuscular Volume 80.4 fL (81-99); Mean Platelet Volume 9.5 fL (7.4-10.4); Monocytes # 1.4 10^3/uL (0.2-0.9); Monocytes % 14.4 %; Neutrophils # 6.86 10^3/uL (1.8-7.7); Neutrophils % 73.1 %; Nucleated Red Blood Cells % 0 %; Platelet Count 404 10^3/cmm (130-400); Red Blood Count 3.52 10^6/uL (4.1-5.3); Red Cell Distribution Width 16.6 % (12.1-15.1); White Blood Count 9.4 10^3/uL (4.0-10.0)
[2020-03-24 08:21] LABS: Alanine Aminotransferase 11 U/L (0-33); Albumin Level 3.3 g/dL (3.5-5.2); Alkaline Phosphatase 71 IU/L (35-105); Aspartate Amino Transferase 20 U/L (0-32); Blood Urea Nitrogen 19 mg/dL (8-23); Calcium 6.3 mg/dL (8.5-10.5); Carbon Dioxide 23 mmol/L (22-29); Chloride 98 mmol/L (98-107); Globulin 3.6 g/dL (1.3-4.6); Glucose 176 mg/dL (65-115); Magnesium 2.2 mg/dL (1.7-2.3); Osmolality Calculated 283 mOsm/kg (285-295); Sodium 136 mmol/L (136-145); Total Bilirubin 0.6 mg/dL (0.15-1.2); Total Protein 6.9 g/dL (6.6-8.7)
[2020-03-24] MEDS: acetaminophen 325 mg Tablet 650 MG PO ×2 (08:48→17:43)
[2020-03-24 08:53] LABS: Anion Gap 18.8 (5-19); Potassium 3.8 mmol/L (3.5-5.1)
[2020-03-24] MEDS: pantoprazole 40 mg SDV IVP ×2 (09:59→23:02)
[2020-03-24] MEDS: levothyroxine 150 mcg Tablet PO (09:59)
[2020-03-24] MEDS: carvedilol 3.125 mg Tablet PO ×2 (09:59→21:42)
[2020-03-24] MEDS: amlodipine 5 mg Tablet PO ×2 (11:14→13:42)
--- NOTE | 2020-03-24 12:00 | P.PN_ITS ---
Subjective Subjective: Interval history: She is feeling fatigued, but otherwise doing a little better. BP was somewhat elevated overnight as she had not gotten her usual medications yesterday. Vitals/I&O/Wt Last Vital Signs Temp 98.9 F 03/24/20 05:00 Pulse 69 03/24/20 09:00 Resp 24 H 03/24/20 09:00 BP 198/78 03/24/20 09:00 Pulse Ox 94 03/24/20 09:00 03/23/20 03/24/20 03/24/20 22:59 06:59 14:59 Intake Total 0 / 0 1631 / 1631 Output Total 200 / 200 Balance 0 / 0 1631 / 1631 -200 / -200 Weight last 48 hrs Weight 79.379 kg Physical Exam Const: COMMON NORMALS: no acute distress and patient oriented x3 HENMT: COMMON NORMALS: oropharynx normal Neck/C-Spine: COMMON NORMALS: no JVD Resp: COMMON NORMALS: normal respiratory effort and clear to auscultation bilaterally AUSCULTATION: clear to auscultation bilaterally Cardio: COMMON NORMALS: no JVD, regular rhythm, S1 normal heart sound present, S2 normal heart sound present and No murmurs present (Cardio) RHYTHM: regular rhythm HEART SOUNDS: S1 normal heart sound present and S2 normal heart sound present GI: COMMON NORMALS: Normal to inspection, nondistended, normoactive bowel sounds present, Soft to palpation and non-tender PALPATION: Yes Soft to palpation Extremity: COMMON NORMALS: no joint enlargement and no pedal edema Neuro: COMMON NORMALS: patient oriented x3 and moves all extremities Skin: COMMON NORMALS: no rashes or lesions noted GENERAL SKIN EXAM: no rashes or lesions noted Data : 03/24/20 12:14 03/24/20 07:55 Micro: Microbiology 03/23/20 17:32 Blood Culture - Preliminary Blood SPECIMEN COLLECTED 03/23/20 17:30 Blood Culture - Preliminary Blood SPECIMEN COLLECTED A&P Assessment and plan (1) Upper GI bleed: Appears to have responded well to 2 units PBC transfusion, with hemoglobin rise up to 9, and 8.9 on recheck. Discussed with surgery. May start clear liquid diet. Will continue monitoring on medical surgical floor. She is still feeling fatigued, but otherwise doing better. Hemodynamically has remained stable. Continue PPI. Status: Acute (2) Supratherapeutic INR: Received FFP. Will hold warfarin for now. Monitor for any further bleeding. Status: Acute (3) Melena: Status: Acute (4) Acute kidney injury: Cr apppears stable. Monitor. Status: Acute (5) DVT (deep venous thrombosis): For now anticoagulation is to be on hold due to bleeding. Status: Acute (6) Type 2 diabetes mellitus: Consistent carb clear liquid diet. Oral hypoglycemics on hold for now. Status: Acute (7) Hypocalcemia: Received calcium and magnesium supplementation. Status: Acute (8) Community acquired pneumonia: Continue antibiotics. Has been doing well on minimal O2. Leukosytosis, tachycardia resolved. No respiratory complaints. Status: Acute Attestations Medical Necessity Statement*: Continue admission for assessment of acute GI bleeding, hypertherapeutic INR, pneumonia. 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
[2020-03-24 12:21] LABS: Hematocrit 28.1 % (37.0-47.0); Hemoglobin 8.9 g/dL (11.5-15.3)
--- NOTE | 2020-03-24 15:32 | PC.NURSE ---
Patient transferred from ICU-3 to bed 258 by wheelchair. O2 in place per nasal cannula. Stable during time of transfer. Hand-off to nurse at time of transfer.
[2020-03-24 16:20] LABS: Hematocrit 29.4 % (37.0-47.0); Hemoglobin 9.4 g/dL (11.5-15.3)
[2020-03-24 17:15] LABS: Glucose Point of Care 202 mg/dL (70-110)
[2020-03-24] MEDS: gabapentin 300 mg Capsule PO (17:37)
[2020-03-24] MEDS: citalopram 20 mg Tablet 10 MG PO (17:37)
[2020-03-24] MEDS: atorvastatin 40 mg Tablet 20 MG PO (17:37)
[2020-03-24] MEDS: calcium gluconate 0.1 gm/mL 10% SDV 10mL 1 GM IVP (17:45)
[2020-03-24 20:41] LABS: Hematocrit 29.8 % (37.0-47.0); Hemoglobin 9.4 g/dL (11.5-15.3)
[2020-03-24 20:56] LABS: Glucose Point of Care 274 mg/dL (70-110)
[2020-03-24] MEDS: cefTRIAXone 1,000 MG in sodium chloride 0.9% (plus) 50 ML 100 MG IV (21:38)
[2020-03-24] MEDS: azithromycin 500 MG in sodium chloride 0.9% 250 ML 250 MG IV (23:01)
[2020-03-25 00:29] LABS: Hemoglobin 8.8 g/dL (11.5-15.3)
[2020-03-25 04:00] VITALS: BP 170/72; PULSE 80; RESP 20; TEMP 36.9; O2SAT 93
[2020-03-25 05:11] LABS: Basophils % 0.1 %; Eosinophils % 0.2 %; Hematocrit 27.4 % (37.0-47.0); Hemoglobin 8.8 g/dL (11.5-15.3); Lymphocytes # 0.9 10^3/uL (0.8-4.8); Lymphocytes % 8.3 %; Mean Corpuscular HGB Conc 32.1 g/dL (30.0-36.0); Mean Corpuscular Hemoglobin 25.9 pg (28.0-34.0); Mean Corpuscular Volume 80.6 fL (81-99); Mean Platelet Volume 9.1 fL (7.4-10.4); Monocytes % 9.8 %; Neutrophils # 8.59 10^3/uL (1.8-7.7); Neutrophils % 81.2 %; Nucleated Red Blood Cells % 0 %; Platelet Count 423 10^3/cmm (130-400); Red Cell Distribution Width 16.7 % (12.1-15.1); White Blood Count 10.6 10^3/uL (4.0-10.0)
[2020-03-25 06:00] LABS: Alanine Aminotransferase 14 U/L (0-33); Alkaline Phosphatase 82 IU/L (35-105); Anion Gap 17.4 (5-19); Aspartate Amino Transferase 31 U/L (0-32); Blood Urea Nitrogen 23 mg/dL (8-23); Calcium 6.1 mg/dL (8.5-10.5); Carbon Dioxide 23 mmol/L (22-29); Chloride 99 mmol/L (98-107); Globulin 3.7 g/dL (1.3-4.6); Glucose 207 mg/dL (65-115); Osmolality Calculated 285 mOsm/kg (285-295); Potassium 3.4 mmol/L (3.5-5.1); Sodium 136 mmol/L (136-145); Total Bilirubin 0.5 mg/dL (0.15-1.2); Total Protein 6.7 g/dL (6.6-8.7)
--- NOTE | 2020-03-25 07:25 | PM.PN ---
Subjective Subjective: Interval history: The patient feels well. She denies abdominal pain. She says she is hungry and would like some food. Vitals/I&O/Wt Last Vital Signs Temp 98.4 F 03/25/20 04:00 Pulse 80 03/25/20 04:00 Resp 20 H 03/25/20 04:00 BP 170/72 03/25/20 04:00 Pulse Ox 93 03/25/20 04:00 03/24/20 03/25/20 03/25/20 22:59 06:59 14:59 Intake Total 1340 / 1460 120 / 1460 Output Total 700 / 900 Balance 640 / 560 120 / 560 Weight last 48 hrs Weight 175 lb Physical Exam Narrative: EXAM NARRATIVE: Abdomen remains soft and nontender. Data : 03/25/20 04:48 03/25/20 04:48 Micro: Microbiology 03/23/20 17:32 Blood Culture - Preliminary Blood NEGATIVE TO DATE 03/23/20 17:30 Blood Culture - Preliminary Blood NEGATIVE TO DATE 03/24/20 10:15 Bacterial Antigens - Final Urine,Voided 03/24/20 10:15 Legionella Urinary Antigen - Final Urine,Voided A&P Assessment and plan (1) Upper GI bleed: Hemoglobin appears to be remaining stable. Recheck INR today. Advance diet. Status: Acute Attestations Medical Necessity Statement*: See admitting service's notation. 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
[2020-03-25 07:49] VITALS: BP 168/78; PULSE 79; RESP 16; TEMP 36.9; O2SAT 93
[2020-03-25 07:50] LABS: INR 12.29 (0.8-1.2)
[2020-03-25] MEDS: dextrose 5%-sod chloride 0.45% 1,000 ML 30 ML IV (09:23)
[2020-03-25] MEDS: phytonadione (ADULT) 10 mg/mL Ampule 1 mL 2.5 MG PO (09:23)
[2020-03-25] MEDS: citalopram 20 mg Tablet 10 MG PO ×2 (09:24→17:29)
[2020-03-25] MEDS: amlodipine 5 mg Tablet PO (09:25)
[2020-03-25] MEDS: levothyroxine 150 mcg Tablet PO (09:25)
[2020-03-25] MEDS: carvedilol 3.125 mg Tablet PO ×2 (09:25→22:03)
[2020-03-25] MEDS: gabapentin 300 mg Capsule PO ×2 (09:25→17:29)
[2020-03-25] MEDS: acetaminophen 325 mg Tablet 650 MG PO (09:26)
[2020-03-25] MEDS: pantoprazole 40 mg SDV IVP ×2 (10:28→22:04)
[2020-03-25 11:15] VITALS: BP 136/63; PULSE 74; RESP 16; TEMP 36.9; O2SAT 94
[2020-03-25 15:40] VITALS: BP 153/74; PULSE 70; RESP 16; TEMP 37.1; O2SAT 96
[2020-03-25] MEDS: atorvastatin 40 mg Tablet 20 MG PO (17:29)
[2020-03-25 19:58] LABS: Hemoglobin 8.8 g/dL (11.5-15.3)
[2020-03-25 20:00] VITALS: BP 171/70; PULSE 82; RESP 24; TEMP 37.4; O2SAT 90
[2020-03-25 20:51] LABS: INR 2.09 (0.8-1.2)
--- NOTE | 2020-03-25 21:16 | PM.PN ---
Subjective Subjective: Interval history: Reports she is feeling better. No abdominal pain. No bloody or dark black stool. Vitals/I&O/Wt Last Vital Signs Temp 99.3 F 03/25/20 20:00 Pulse 82 03/25/20 20:00 Resp 24 H 03/25/20 20:00 BP 171/70 03/25/20 20:00 Pulse Ox 90 03/25/20 20:00 03/25/20 03/25/20 03/25/20 06:59 14:59 22:59 Intake Total 120 / 1460 1480 / 1480 240 / 1720 Output Total 900 / 900 Balance 120 / 560 1480 / 1480 -660 / 820 Physical Exam Const: COMMON NORMALS: no acute distress and patient oriented x3 OTHER: Slightly pale. HENMT: COMMON NORMALS: oropharynx normal Neck/C-Spine: COMMON NORMALS: no JVD Resp: COMMON NORMALS: normal respiratory effort and clear to auscultation bilaterally AUSCULTATION: clear to auscultation bilaterally Cardio: COMMON NORMALS: no JVD, regular rhythm, S1 normal heart sound present, S2 normal heart sound present and No murmurs present (Cardio) RHYTHM: regular rhythm HEART SOUNDS: S1 normal heart sound present and S2 normal heart sound present GI: COMMON NORMALS: Normal to inspection, nondistended, normoactive bowel sounds present, Soft to palpation and non-tender PALPATION: Yes Soft to palpation Extremity: COMMON NORMALS: no joint enlargement and no pedal edema Neuro: COMMON NORMALS: patient oriented x3 and moves all extremities Skin: COMMON NORMALS: no rashes or lesions noted GENERAL SKIN EXAM: no rashes or lesions noted Data : 03/25/20 19:42 03/25/20 04:48 Micro: Microbiology 03/23/20 17:32 Blood Culture - Preliminary Blood NEGATIVE TO DATE 03/23/20 17:30 Blood Culture - Preliminary Blood NEGATIVE TO DATE A&P Assessment and plan (1) Upper GI bleed: INR this morning noted as high as 12.9. Was given 2.5 mg oral vitamin K. Recheck this evening INR is 2. Will recheck again in the morning. No betty blood in the stool. Hemoglobin appears to be stable around 9. Recheck in the morning. Appears to have responded well to 2 units PBC transfusion, with hemoglobin rise up to 9, and 8.9 on recheck. Discussed with surgery. CC diet. Will continue monitoring on medical surgical floor. She is still feeling fatigued, but otherwise doing better. Hemodynamically has remained stable. Continue PPI. Status: Acute (2) Supratherapeutic INR: Received FFP on admission. INR noted very elevated this morning. Received small dose of vitamin K 2.5 mg. Subsequently and are down to 2. Will hold warfarin for now. Monitor for any further bleeding. Status: Acute (3) Melena: Status: Acute (4) Acute kidney injury: Cr apppears stable. Monitor. Status: Acute (5) DVT (deep venous thrombosis): For now anticoagulation is to be on hold due to bleeding. Status: Acute (6) Type 2 diabetes mellitus: Consistent carb clear liquid diet. Oral hypoglycemics on hold for now. Status: Acute (7) Hypocalcemia: Received calcium and magnesium supplementation. Recheck level. Status: Acute (8) Community acquired pneumonia: Continue antibiotics. Has been doing well on minimal O2. Leukosytosis, tachycardia resolved. No respiratory complaints. Status: Acute Attestations Medical Necessity Statement*: Continue admission versus management of GI bleed, supratherapeutic INR, acute blood loss anemia. 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
[2020-03-25] MEDS: cefTRIAXone 1,000 MG in sodium chloride 0.9% (plus) 50 ML 100 MG IV (22:03)
[2020-03-25 22:04] VITALS: RESP 18
[2020-03-25] MEDS: HYDROmorphone 1 mg/mL INJ 1 mL IVP (22:04)
[2020-03-25] MEDS: azithromycin 500 MG in sodium chloride 0.9% 250 ML 250 MG IV (22:50)
[2020-03-26] VITALS (8 sets, daily range): BP systolic 106–171; BP diastolic 55–90; PULSE 65–104; RESP 16–22; TEMP 35.5–37.4; O2SAT 83–97
[2020-03-26 05:08] LABS: Basophils % 0.2 %; Eosinophils # 0.1 10^3/uL (0.0-0.8); Eosinophils % 1.4 %; Hematocrit 26.5 % (37.0-47.0); Hemoglobin 8.4 g/dL (11.5-15.3); Lymphocytes # 1.1 10^3/uL (0.8-4.8); Lymphocytes % 12.8 %; Mean Corpuscular HGB Conc 31.7 g/dL (30.0-36.0); Mean Corpuscular Hemoglobin 26.1 pg (28.0-34.0); Mean Corpuscular Volume 82.3 fL (81-99); Mean Platelet Volume 9.6 fL (7.4-10.4); Monocytes # 0.9 10^3/uL (0.2-0.9); Monocytes % 10.2 %; Neutrophils # 6.54 10^3/uL (1.8-7.7); Neutrophils % 74.8 %; Nucleated Red Blood Cells % 0 %; Platelet Count 383 10^3/cmm (130-400); Red Blood Count 3.22 10^6/uL (4.1-5.3); White Blood Count 8.7 10^3/uL (4.0-10.0)
[2020-03-26 05:42] LABS: Magnesium 1.8 mg/dL (1.7-2.3)
[2020-03-26 05:49] LABS: Alanine Aminotransferase 19 U/L (0-33); Albumin Level 2.8 g/dL (3.5-5.2); Alkaline Phosphatase 81 IU/L (35-105); Anion Gap 16.3 (5-19); Aspartate Amino Transferase 29 U/L (0-32); Blood Urea Nitrogen 28 mg/dL (8-23); Carbon Dioxide 23 mmol/L (22-29); Chloride 100 mmol/L (98-107); Globulin 3.5 g/dL (1.3-4.6); Glucose 181 mg/dL (65-115); Osmolality Calculated 284 mOsm/kg (285-295); Potassium 3.3 mmol/L (3.5-5.1); Sodium 136 mmol/L (136-145); Total Bilirubin 0.7 mg/dL (0.15-1.2); Total Protein 6.3 g/dL (6.6-8.7)
[2020-03-26 05:50] LABS: Calcium 5.8 mg/dL (8.5-10.5)
[2020-03-26] MEDS: potassium chloride ER 10 mEq Tablet 40 MEQ PO (07:48)
[2020-03-26] MEDS: magnesium oxide 400 mg tablet PO (07:48)
[2020-03-26] MEDS: cyanocobalamin 1,000 mcg Tablet 1000 MCG PO (07:50)
[2020-03-26] MEDS: citalopram 20 mg Tablet 10 MG PO ×2 (07:50→16:37)
[2020-03-26] MEDS: calcitriol 0.25 mcg Capsule 0.5 MCG PO (07:50)
[2020-03-26] MEDS: amlodipine 5 mg Tablet PO (07:50)
[2020-03-26] MEDS: gabapentin 300 mg Capsule PO ×2 (07:51→16:37)
[2020-03-26] MEDS: carvedilol 3.125 mg Tablet PO ×2 (07:51→22:21)
[2020-03-26] MEDS: levothyroxine 150 mcg Tablet PO (07:51)
[2020-03-26] MEDS: acetaminophen 325 mg Tablet 650 MG PO ×2 (07:53→16:37)
--- NOTE | 2020-03-26 07:55 | P.PN_ITS ---
Subjective Subjective: Interval history: The patient has no complaints this morning. She had a bowel movement yesterday afternoon but says she did not look at it. Vitals/I&O/Wt Last Vital Signs Temp 99.2 F 03/26/20 04:00 Pulse 86 03/26/20 06:06 Resp 22 H 03/26/20 06:06 BP 168/81 03/26/20 04:00 Pulse Ox 95 03/26/20 06:06 03/25/20 03/26/20 03/26/20 22:59 06:59 14:59 Intake Total 480 / 2019 Output Total 900 / 900 Balance -420 / 1120 60 / 1120 Physical Exam Narrative: EXAM NARRATIVE: Abdomen remains soft and nontender. Data : 03/26/20 03:55 03/26/20 03:55 A&P Assessment and plan (1) Upper GI bleed: Hemoglobin appears to be remaining stable. INR is much closer to the normal range at this point after correction. The patient does not have a big interest in having endoscopy, and I do not think it is necessarily anything we need to do unless she has further issues. Status: Acute Attestations Medical Necessity Statement*: See admitting service's notation. 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
[2020-03-26] MEDS: magnesium sulfate premix 2 GM/50 ML PIGGYBACK IV (10:06)
--- NOTE | 2020-03-26 10:15 | PC.SOCIAL ---
IMM Page 2 of IMM explained to patient. Initialed, dated, and timed and placed in chart. Copy provided to patient.
[2020-03-26] MEDS: pantoprazole 40 mg SDV IVP ×2 (11:11→22:21)
--- NOTE | 2020-03-26 12:24 | PC.NURSE ---
Nursing Students got vital signs
--- NOTE | 2020-03-26 15:19 | USR_ITS ---
PROCEDURE INFORMATION: Exam: US Duplex Left Upper Extremity Veins, Limited Exam date and time: 03/26/2020 5:32 PM Age: 80 years old Clinical indication: Edema, localized; Upper extremity, left; Additional info: Swelling TECHNIQUE: Imaging protocol: Real-time Duplex ultrasound of the Left Upper Extremity with 2-D rivera scale, color Doppler flow and spectral waveform analysis with image documentation. Limited exam focused on the left upper extremity veins. COMPARISON: No relevant prior studies available. FINDINGS: Left deep veins: Unremarkable. Axillary and brachial veins are patent throughout without thrombus. Normal Doppler waveforms. Normal compressibility and/or augmentation response. Visualized internal jugular and subclavian veins are patent. Left superficial veins: Unremarkable. Visualized cephalic and basilic veins are patent without thrombus. Soft tissues: Unremarkable. US/[place] [id number] IMPRESSION: No evidence of deep vein thrombosis.
--- NOTE | 2020-03-26 15:36 | XRR_ITS ---
PROCEDURE INFORMATION: Exam: XR Left Wrist Exam date and time: 03/26/2020 4:47 PM Age: 80 years old Clinical indication: Pain; Wrist; Left; Additional info: Pain, possible fall AMS TECHNIQUE: Imaging protocol: XR Left wrist. Views: 3 or more views. COMPARISON: No relevant prior studies available. FINDINGS: Bones/joints: Six images. The bones are intact and in normal alignment. Soft tissues: Soft tissue swelling of the wrist. Vasculature: Vascular calcifications. XR/XR wrist LT min 3V* [id number] IMPRESSION: No fracture identified.
[2020-03-26] MEDS: atorvastatin 40 mg Tablet 20 MG PO (16:37)
--- NOTE | 2020-03-26 21:40 | P.PN_ITS ---
Subjective Subjective: Interval history: Today she states she is doing all right, denies abdominal pain or discomfort. Noted to have woken up this morning with some difficulty squeezing her left hand, due to pain in the wrist, as well as moving the wrist. Vitals/I&O/Wt Last Vital Signs Temp 99.2 F 03/26/20 19:50 Pulse 70 03/26/20 19:50 Resp 18 03/26/20 19:50 BP 137/69 03/26/20 19:50 Pulse Ox 94 03/26/20 19:50 03/26/20 03/26/20 03/26/20 06:59 14:59 22:59 Intake Total 2019 1721 / 1721 Output Total 700 / 700 Balance 60 / 1120 1021 / 1021 Physical Exam Const: COMMON NORMALS: no acute distress and patient oriented x3 OTHER: Slightly pale. HENMT: COMMON NORMALS: oropharynx normal Neck/C-Spine: COMMON NORMALS: no JVD Resp: COMMON NORMALS: normal respiratory effort and clear to auscultation bilaterally AUSCULTATION: clear to auscultation bilaterally Cardio: COMMON NORMALS: no JVD, regular rhythm, S1 normal heart sound present, S2 normal heart sound present and No murmurs present (Cardio) RHYTHM: regular rhythm HEART SOUNDS: S1 normal heart sound present and S2 normal heart sound present GI: COMMON NORMALS: Normal to inspection, nondistended, normoactive bowel sounds present, Soft to palpation and non-tender PALPATION: Yes Soft to palpation Extremity: COMMON NORMALS: no joint enlargement and no pedal edema Neuro: COMMON NORMALS: patient oriented x3 and moves all extremities Skin: COMMON NORMALS: no rashes or lesions noted GENERAL SKIN EXAM: no rashes or lesions noted Data : 03/26/20 03:55 03/26/20 03:55 A&P Assessment and plan (1) Upper GI bleed: INR down to 1.6 this morning. For now holding anticoagulation due to suspected GI bleed. Discussed with surgery, and potentially may be able to restart anticoagulation if this is necessary. See below. Appears she is reluctant to have endoscopy. Appears to have responded well to 2 units PBC transfusion, with hemoglobin rise up to 9, and 8.9 on recheck. CC diet. She is still feeling fatigued, but otherwise doing better. Hemodynamically has remained stable. Continue PPI. Status: Acute (2) Left wrist pain: Appears this morning having difficulty moving her left wrist due to pain. Reports subjectively is feeling swelling. I do not appreciate much swelling on exam, there is no redness, but does have pain on passive range of motion. No pain on passive range of motion of the shoulder. Does appear to pull away her arm when moving the elbow, but this is inconsistent, and appears more due to pain in the wrist. Obtained x-ray of the wrist which shows no fracture. Left upper extremity duplex shows no DVT. Not sure whether this may be a sprain, possibly while repositioning in bed. For now will monitor. Replace calcium, magnesium in case it is related to a cramp. I do not see signs of infection of the joint at this time. There is good capillary refill of the digits. Elevate left upper extremity. Elevate. Status: Acute (3) Supratherapeutic INR: Resolved. Received FFP on admission. Vitamin K 2.5 mg. Status: Acute (4) Melena: Heme positive stool. Appears has had a normal BM. Status: Acute (5) Acute kidney injury: Cr apppears stable. Monitor. Status: Acute (6) DVT (deep venous thrombosis): For now anticoagulation is to be on hold due to bleeding. Discussed with surgery. Potentially may be able to restart now that INR is back to normal. Hemoglobin stable. Discussed with patient and her son, as well as her PCP with regards to anticoagulation. Appears she had history of thrombosis back in 1990, although there is not much detail as to the nature of thrombosis. Appears it was int racranial thrombosis. Patient is not sure if it was a venous or other, but says that she had some a aphasia/dysarthria subsequently. I have asked her multiple times whether this was a stroke, and she is adamant it was not a stroke, but some sort of other thrombosis. Makes me consider whether this may be was venous dural thrombosis, or other thrombus. Her son is not sure of the nature of this. Does confirm the timing of the thrombosis. PCP is not aware of this history as she is only been with them since recently. If hemoglobin remains stable, potentially we may restart anticoagulation. May benefit from follow-up with neurology and hematology in office to see whether still needs to continue anticoagulation lifelong. For now added prophylactic dose Lovenox. Will monitor. Status: Acute (7) Type 2 diabetes mellitus: Consistent carb clear liquid diet. Oral hypoglycemics on hold for now. Status: Acute (8) Hypocalcemia: Again replaced. Recheck. Increase calcitriol dose to 0.75. Status: Acute (9) Community acquired pneumonia: Continue antibiotics. Has been doing well on minimal O2. Leukosytosis, tachycardia resolved. No respiratory complaints. Status: Acute Attestations Medical Necessity Statement*: Continue admission for assessment management following GI bleeding, acute blood loss anemia, while on anticoagulation, with history of intracranial thrombosis, treatment of hypocalcemia, treatment of pneumonia. Coding Level of Care Code Acute Rn Traveling for [facility] Fwd Diagnoses Upper GI bleed K92.2 Left wrist pain M25.532 Supratherapeutic INR R79.1 Melena K92.1 Acute kidney injury N17.9 DVT (deep venous thrombosis) I82.409 Type 2 diabetes mellitus E11.9 Hypocalcemia E83.51 Community acquired pneumonia J18.9
--- NOTE | 2020-03-26 22:17 | PC.NURSE ---
LUE elevated per message to nurse
[2020-03-26] MEDS: enoxaparin 40 mg/0.4 mL Syringe SUBCUT (22:21)
[2020-03-26] MEDS: azithromycin 500 MG in sodium chloride 0.9% 250 ML 250 MG IV (22:21)
[2020-03-26] MEDS: cefTRIAXone 1,000 MG in sodium chloride 0.9% (plus) 50 ML 100 MG IV (22:21)
[2020-03-27] VITALS (8 sets, daily range): BP systolic 136–182; BP diastolic 63–75; PULSE 71–85; RESP 18–20; TEMP 36.7–37.6; O2SAT 92–97
[2020-03-27] MEDS: acetaminophen 325 mg Tablet 650 MG PO (04:26)
[2020-03-27 04:30] LABS: Basophils % 0.4 %; Eosinophils # 0.1 10^3/uL (0.0-0.8); Eosinophils % 1.4 %; Hematocrit 27.2 % (37.0-47.0); Hemoglobin 8.5 g/dL (11.5-15.3); Lymphocytes # 1.2 10^3/uL (0.8-4.8); Mean Corpuscular HGB Conc 31.3 g/dL (30.0-36.0); Mean Corpuscular Hemoglobin 25.7 pg (28.0-34.0); Mean Corpuscular Volume 82.2 fL (81-99); Mean Platelet Volume 9.2 fL (7.4-10.4); Monocytes % 9.5 %; Neutrophils # 7.63 10^3/uL (1.8-7.7); Neutrophils % 76.1 %; Nucleated Red Blood Cells % 0 %; Platelet Count 420 10^3/cmm (130-400); Red Blood Count 3.31 10^6/uL (4.1-5.3); Red Cell Distribution Width 17.2 % (12.1-15.1)
[2020-03-27 04:51] LABS: Alanine Aminotransferase 20 U/L (0-33); Albumin Level 2.6 g/dL (3.5-5.2); Alkaline Phosphatase 97 IU/L (35-105); Anion Gap 14.7 (5-19); Aspartate Amino Transferase 26 U/L (0-32); Blood Urea Nitrogen 27 mg/dL (8-23); Calcium 6.2 mg/dL (8.5-10.5); Carbon Dioxide 24 mmol/L (22-29); Chloride 99 mmol/L (98-107); Globulin 3.7 g/dL (1.3-4.6); Glucose 190 mg/dL (65-115); Osmolality Calculated 280 mOsm/kg (285-295); Potassium 3.7 mmol/L (3.5-5.1); Sodium 134 mmol/L (136-145); Total Bilirubin 0.5 mg/dL (0.15-1.2); Total Protein 6.3 g/dL (6.6-8.7)
[2020-03-27 04:56] LABS: Magnesium 1.8 mg/dL (1.7-2.3)
--- NOTE | 2020-03-27 07:27 | PM.PN ---
Subjective Subjective: Interval history: The patient has no complaints this morning. She apparently thought she was having some swelling in her left upper extremity yesterday but she says it is better today. Her bowel movements are much less dark in color. She still has not seen any obvious evidence of hematochezia. Vitals/I&O/Wt Last Vital Signs Temp 99.7 F H 03/27/20 04:00 Pulse 80 03/27/20 04:00 Resp 18 03/27/20 04:00 BP 163/66 03/27/20 04:00 Pulse Ox 94 03/27/20 04:00 03/26/20 03/27/20 03/27/20 22:59 06:59 14:59 Output Total 900 / 1600 Balance -900 / 121 Physical Exam Narrative: EXAM NARRATIVE: Abdomen remains soft and nontender. Data : 03/27/20 04:20 03/27/20 04:20 A&P Assessment and plan (1) Upper GI bleed: Hemoglobin appears to be remaining stable. Disposition per hospitalist team. Status: Acute Attestations Medical Necessity Statement*: See admitting service's notation. 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
[2020-03-27] MEDS: citalopram 20 mg Tablet 10 MG PO ×2 (08:14→18:06)
[2020-03-27] MEDS: carvedilol 3.125 mg Tablet PO ×2 (08:14→21:36)
[2020-03-27] MEDS: cyanocobalamin 1,000 mcg Tablet 1000 MCG PO (08:14)
[2020-03-27] MEDS: levothyroxine 150 mcg Tablet PO (08:15)
[2020-03-27] MEDS: amlodipine 5 mg Tablet PO (08:15)
[2020-03-27] MEDS: gabapentin 300 mg Capsule PO ×2 (08:15→18:06)
[2020-03-27] MEDS: calcitriol 0.25 mcg Capsule 0.75 MCG PO (08:18)
[2020-03-27] MEDS: pantoprazole 40 mg SDV IVP ×2 (10:42→22:52)
--- NOTE | 2020-03-27 11:36 | CTR_ITS ---
PROCEDURE INFORMATION: Exam: CT Left Upper Extremity Without Contrast, Forearm Exam date and time: 03/27/2020 1:27 PM Age: 80 years old Clinical indication: Lower or forearm and wrist; Left; Patient HX: C/O L wrist/forearm pain and swelling; Additional info: Swelling, pain L forearm, L wrist TECHNIQUE: Imaging protocol: CT of the Left upper extremity without contrast was performed. Exam focused on the forearm. Radiation optimization: All CT scans at this facility use at least one of these dose optimization techniques: automated exposure control; mA and/or kV adjustment per patient size (includes targeted exams where dose is matched to clinical indication); or iterative reconstruction. COMPARISON: No relevant prior studies available. 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 There are mild degenerative elbow and wrist. There is a physiologic amount of fluid in the elbow and wrist. No acute fracture or dislocation. There is a small effusion in the radiocarpal and distal radial ulnar joints. No bony destruction or osteomyelitis. Soft tissues: There is edema of the subcutaneous fat especially over the dorsum of the forearm. There is no soft tissue fluid collection such as a hematoma or abscess. No intramuscular fluid collection. No foreign body. Vasculature: There are vascular calcifications. CT/CT forearm LT wo con* [id number] IMPRESSION: 1. 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 There is an effusion in the radiocarpal joint and distal radial ulnar joint. 2. No acute fracture or dislocation. 3. There is abundant soft tissue edema of the subcutaneous fat over the dorsal forearm. No fluid collection or abscess. This appearance may reflect cellulitis or soft tissue contusion. Radiation Dose CTDIVOL = (mGy): DLP = 545.84 (mGy-cm)
--- NOTE | 2020-03-27 11:37 | PM.PN ---
Subjective Subjective: Interval history: Today she was doing better. She is able to raise her left arm, bend at the elbow, reports her wrist is feeling a little bit better. Denies abdominal pain. Vitals/I&O/Wt Last Vital Signs Temp 98.2 F 03/27/20 08:00 Pulse 73 03/27/20 08:00 Resp 18 03/27/20 08:00 BP 147/63 03/27/20 08:00 Pulse Ox 97 03/27/20 08:00 03/26/20 03/27/20 03/27/20 22:59 06:59 14:59 Intake Total 50 / 1771 250 / 2021 480 / 480 Output Total 900 / 1600 Balance 50 / 1071 -650 / 421 480 / 480 Physical Exam Const: COMMON NORMALS: no acute distress and patient oriented x3 GENERAL APPEARANCE: frail appearing HENMT: COMMON NORMALS: oropharynx normal Neck/C-Spine: COMMON NORMALS: no JVD Resp: COMMON NORMALS: normal respiratory effort and clear to auscultation bilaterally AUSCULTATION: clear to auscultation bilaterally Cardio: COMMON NORMALS: no JVD, regular rhythm, S1 normal heart sound present, S2 normal heart sound present and No murmurs present (Cardio) RHYTHM: regular rhythm HEART SOUNDS: S1 normal heart sound present and S2 normal heart sound present GI: COMMON NORMALS: Normal to inspection, nondistended, normoactive bowel sounds present, Soft to palpation and non-tender PALPATION: Yes Soft to palpation Extremity: COMMON NORMALS: no joint enlargement and no pedal edema Neuro: COMMON NORMALS: patient oriented x3 and moves all extremities Skin: COMMON NORMALS: no rashes or lesions noted GENERAL SKIN EXAM: no rashes or lesions noted Data : 03/27/20 04:20 03/27/20 04:20 A&P Assessment and plan (1) Upper GI bleed: After discussion with surgery, patient and patient's son, will go ahead and resume warfarin for now. Monitor for any changes in hemoglobin. After discharge would benefit from follow-up with a engraver picture and neurosurgeon who may help determine whether she still requires to be on anticoagulation lifelong. INR down to 1.6 this morning. For now holding anticoagulation due to suspected GI bleed. Discussed with surgery, and potentially may be able to restart anticoagulation if this is necessary. See below. Appears she is reluctant to have endoscopy. Appears to have responded well to 2 units PBC transfusion, with hemoglobin rise up to 9, and 8.9 on recheck. CC diet. She is still feeling fatigued, but otherwise doing better. Hemodynamically has remained stable. Continue PPI. Status: Acute (2) Left wrist pain: Today she is feeling somewhat better. Has been elevating arm on a pillow. He is able to lift her left arm, bend elbow. Left wrist is bothering her less. Obtained noncontrast CT of the left forearm. 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 Noted effusion in the radiocarpal joint and distal radial ulnar joint. No fracture noted again. Soft tissue edema of subcutaneous fat over the dorsal forearm. No fluid collection or abscess. On physical examination she has no redness there. There is some swelling. Appears this morning having difficulty moving her left wrist due to pain. Reports subjectively is feeling swelling. I do not appreciate much swelling on exam, there is no redness, but does have pain on passive range of motion. No pain on passive range of motion of the shoulder. Does appear to pull away her arm when moving the elbow, but this is inconsistent, and appears more due to pain in the wrist. Obtained x-ray of the wrist which shows no fracture. Left upper extremity duplex shows no DVT. Not sure whether this may be a sprain, possibly while repositioning in bed. For now will monitor. Replace calcium, magnesium in case it is related to a cramp. I do not see signs of infection of the joint at this time. There is good capillary refill of the digits. Elevate left upper extremity. Elevate. Status: Acute (3) Supratherapeutic INR: Resolved. Received FFP on admission. Vitamin K 2.5 mg. Status: Acute (4) Melena: Heme positive stool. Appears has had a normal BM. Status: Acute (5) Acute kidney injury: Cr apppears stable. Monitor. Status: Acute (6) DVT (deep venous thrombosis): For now anticoagulation is to be on hold due to bleeding. Discussed with surgery. Potentially may be able to restart now that INR is back to normal. Hemoglobin stable. Discussed with patient and her son, as well as her PCP with regards to anticoagulation. Appears she had history of thrombosis back in 1990, although there is not much detail as to the nature of thrombosis. Appears it was intracranial thrombosis. Patient is not sure if it was a venous or other, but says that she had some a aphasia/dysarthria subsequently. I have asked her multiple times whether this was a stroke, and she is adamant it was not a stroke, but some sort of other thrombosis. Makes me consider whether this may be was venous dural thrombosis, or other thrombus. Her son is not sure of the nature of this. Does confirm the timing of the thrombosis. PCP is not aware of this history as she is only been with them since recently. If hemoglobin remains stable, potentially we may restart anticoagulation. May benefit from follow-up with neurology and hematology in office to see whether still needs to continue anticoagulation lifelong. For now added prophylactic dose Lovenox. Will monitor. Status: Acute (7) Type 2 diabetes mellitus: Consistent carb clear liquid diet. Oral hypoglycemics on hold for now. Status: Acute (8) Hypocalcemia: Again replaced. Recheck. Increase calcitriol dose to 0.75. Status: Acute (9) Community acquired pneumonia: Continue antibiotics. Has been doing well on minimal O2. Leukosytosis, tachycardia resolved. No respiratory complaints. Status: Acute Attestations Medical Necessity Statement*: Continue admission for assessment management following supratherapeutic INR, GI bleed, resumption of anticoagulation, treatment of community-acquired pneumonia, recurrent severe hypocalcemia. 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
[2020-03-27] MEDS: atorvastatin 40 mg Tablet 20 MG PO (18:06)
[2020-03-27] MEDS: warfarin 3 mg Tablet PO (21:36)
[2020-03-27] MEDS: cefTRIAXone 1,000 MG in sodium chloride 0.9% (plus) 50 ML 100 MG IV (21:36)
[2020-03-27] MEDS: enoxaparin 40 mg/0.4 mL Syringe SUBCUT (21:37)
[2020-03-27] MEDS: azithromycin 500 MG in sodium chloride 0.9% 250 ML 250 MG IV (22:53)
[2020-03-28] VITALS: BP 172/64; PULSE 77; RESP 18; TEMP 36.8; O2SAT 93
[2020-03-28 04:00] VITALS: BP 172/80; PULSE 76; RESP 20; TEMP 37.6; O2SAT 94
[2020-03-28 04:29] LABS: Basophils % 0.4 %; Eosinophils # 0.1 10^3/uL (0.0-0.8); Eosinophils % 1.2 %; Hematocrit 26.5 % (37.0-47.0); Hemoglobin 8.2 g/dL (11.5-15.3); Lymphocytes # 1.3 10^3/uL (0.8-4.8); Mean Corpuscular HGB Conc 30.9 g/dL (30.0-36.0); Mean Corpuscular Hemoglobin 25.1 pg (28.0-34.0); Mean Platelet Volume 9.7 fL (7.4-10.4); Monocytes # 1.2 10^3/uL (0.2-0.9); Monocytes % 11.5 %; Neutrophils # 7.96 10^3/uL (1.8-7.7); Neutrophils % 74.1 %; Nucleated Red Blood Cells % 0 %; Platelet Count 464 10^3/cmm (130-400); Red Blood Count 3.27 10^6/uL (4.1-5.3); Red Cell Distribution Width 17.1 % (12.1-15.1); White Blood Count 10.8 10^3/uL (4.0-10.0)
[2020-03-28 04:53] LABS: Magnesium 1.7 mg/dL (1.7-2.3); Phosphorus 3.7 mg/dL (2.5-4.5)
[2020-03-28 04:55] LABS: Alanine Aminotransferase 19 U/L (0-33); Albumin Level 2.6 g/dL (3.5-5.2); Alkaline Phosphatase 115 IU/L (35-105); Anion Gap 12.5 (5-19); Aspartate Amino Transferase 22 U/L (0-32); Blood Urea Nitrogen 22 mg/dL (8-23); Calcium 6.5 mg/dL (8.5-10.5); Carbon Dioxide 25 mmol/L (22-29); Chloride 100 mmol/L (98-107); Globulin 3.8 g/dL (1.3-4.6); Glucose 195 mg/dL (65-115); Osmolality Calculated 280 mOsm/kg (285-295); Potassium 3.5 mmol/L (3.5-5.1); Sodium 134 mmol/L (136-145); Total Bilirubin 0.5 mg/dL (0.15-1.2); Total Protein 6.4 g/dL (6.6-8.7)
[2020-03-28 05:55] LABS: INR 1.82 (0.8-1.2)
--- NOTE | 2020-03-28 07:26 | PM.PN ---
Subjective Subjective: Interval history: The patient denies any complaints this morning. Vitals/I&O/Wt Last Vital Signs Temp 99.7 F H 03/28/20 04:00 Pulse 76 03/28/20 04:00 Resp 20 H 03/28/20 04:00 BP 172/80 03/28/20 04:00 Pulse Ox 94 03/28/20 04:00 03/27/20 03/28/20 03/28/20 22:59 06:59 14:59 Intake Total 530 / 1130 Output Total 1000 / 1000 Balance -470 / 130 Physical Exam Narrative: EXAM NARRATIVE: Abdomen remains soft and nontender. INR 1.82. Data : 03/28/20 04:13 03/28/20 04:13 A&P Assessment and plan (1) Upper GI bleed: Hemoglobin appears to be remaining relatively stable. Patient is back on her warfarin. Disposition per hospitalist team. Status: Acute Attestations Medical Necessity Statement*: See admitting service's notation. 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
[2020-03-28 08:00] VITALS: BP 183/79; PULSE 88; RESP 18; TEMP 36.8; O2SAT 93
[2020-03-28] MEDS: carvedilol 3.125 mg Tablet PO ×2 (08:01→22:11)
[2020-03-28] MEDS: cyanocobalamin 1,000 mcg Tablet 1000 MCG PO (08:01)
[2020-03-28] MEDS: calcitriol 0.25 mcg Capsule 0.75 MCG PO (08:01)
[2020-03-28] MEDS: citalopram 20 mg Tablet 10 MG PO ×2 (08:02→17:39)
[2020-03-28] MEDS: gabapentin 300 mg Capsule PO ×2 (08:02→17:39)
[2020-03-28] MEDS: amlodipine 5 mg Tablet PO (08:02)
[2020-03-28] MEDS: levothyroxine 150 mcg Tablet PO (08:02)
[2020-03-28] MEDS: magnesium sulfate premix 2 GM/50 ML PIGGYBACK IV (08:05)
[2020-03-28] MEDS: pantoprazole 40 mg SDV IVP ×2 (09:44→22:15)
--- NOTE | 2020-03-28 10:40 | PC.SOCIAL ---
IMM Updated Page 2 of IMM updated and given to patient. Initialed, dated, and timed and placed back in chart.
[2020-03-28 12:00] VITALS: BP 182/71; PULSE 79; RESP 18; TEMP 37.1; O2SAT 97
[2020-03-28 16:00] VITALS: BP 161/73; PULSE 74; RESP 18; TEMP 37.8; O2SAT 94
[2020-03-28] MEDS: atorvastatin 40 mg Tablet 20 MG PO (17:39)
[2020-03-28] MEDS: acetaminophen 325 mg Tablet 650 MG PO (17:42)
[2020-03-28 19:33] VITALS: BP 161/72; PULSE 71; RESP 16; TEMP 37.3; O2SAT 92
--- NOTE | 2020-03-28 21:31 | P.PN_ITS ---
Subjective Subjective: Interval history: She is in good spirits this morning. Is doing well. Denies abdominal pain. Left wrist is doing slightly better, but still cannot bend it, still some has p ersistent swelling, but arm is otherwise doing well. Discussed with her results of the CT, including chondrocalcinosis, although also much smaller suspicion, but cannot entirely rule out possibility of infection there. Discussed this also with her son. They both report that she has had chronic/recurrent trouble with bilateral knees, and son states she has been following with a exceptional needs teacher. I wonder if she may have CPPD as the cause of her knee problems as well, although son states never had fluid drawn from the knees before. Vitals/I&O/Wt Last Vital Signs Temp 99.1 F 03/28/20 19:33 Pulse 71 03/28/20 19:33 Resp 16 03/28/20 19:33 BP 161/72 03/28/20 19:33 Pulse Ox 92 03/28/20 19:33 03/28/20 03/28/20 03/28/20 06:59 14:59 22:59 Intake Total 480 / 480 840 / 1320 Output Total 1999 Balance -1520 / -1520 840 / -680 Physical Exam Const: COMMON NORMALS: no acute distress and patient oriented x3 GENERAL APPEARANCE: frail appearing OTHER: Slightly pale. HENMT: COMMON NORMALS: oropharynx normal Neck/C-Spine: COMMON NORMALS: no JVD Resp: COMMON NORMALS: normal respiratory effort and clear to auscultation bilaterally AUSCULTATION: clear to auscultation bilaterally Cardio: COMMON NORMALS: no JVD, regular rhythm, S1 normal heart sound present, S2 normal heart sound present and No murmurs present (Cardio) RHYTHM: regular rhythm HEART SOUNDS: S1 normal heart sound present and S2 normal heart sound present GI: COMMON NORMALS: Normal to inspection, nondistended, normoactive bowel sounds present, Soft to palpation and non-tender PALPATION: Yes Soft to palpation Extremity: COMMON NORMALS: no joint enlargement and no pedal edema OTHER: Left wrist joint is still swollen, there is no overlying erythema to suggest cellulitis, she is able to move elbow joint and shoulder joint without any pain. There is pain on active and passive range of motion of the left wrist. Neuro: COMMON NORMALS: patient oriented x3 and moves all extremities Skin: COMMON NORMALS: no rashes or lesions noted GENERAL SKIN EXAM: no rashes or lesions noted Data : 03/28/20 04:13 03/28/20 04:13 Micro: Microbiology 03/23/20 17:32 Blood Culture - Final Blood NO GROWTH AFTER 5 DAYS 03/23/20 17:30 Blood Culture - Final Blood NO GROWTH AFTER 5 DAYS A&P Assessment and plan (1) Left wrist pain: Obtained noncontrast CT of the left forearm. 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 Noted effusion in the radiocarpal joint and distal radial ulnar joint. No fracture noted again. Soft tissue edema of subcutaneous fat over the dorsal forearm. No fluid collection or abscess. On physical examination she has no redness there. There is some swelling. CPPD may be suspected, and perhaps low-grade fevers (today up to 100 Fahrenheit) may be secondary to this, but discussed with her and her son that although probability is low, cannot entirely exclude infection in the joint, due to this we will hold additionally warfarin for now. Radiology should be back starting tomorrow, and arthrocentesis of the wrist would provide additional assessment of the joint fluid to help exclude the low likelihood of infection, assess for crystals, etc. Otherwise should follow-up with rheumatology after discharge, and I wonder if her chronic knee problems are due to a similar condition. Difficulty moving her left wrist due to pain. Some progressive swelling initially. I do not appreciate much swelling on exam, there is no redness, but does have pain on passive range of motion. No pain on passive range of motion of the shoulder. Does appear to pull away her arm when moving the elbow, but this is inconsistent, and appears more due to pain in the wrist. Obtained x-ray of the wrist which shows no fracture. Left upper extremity duplex shows no DVT. There is good capillary refill of the digits. Elevate left upper extremity. Has been receiving calcium replacement. Phosphorus checked and is normal. Status: Acute (2) Upper GI bleed: Gradual downtrend of hemoglobin, currently down to 8.2, no overt bleeding. Had warfarin resumed, with 1 dose given on 03/27, however, given CT findings in the left wrist, would like to obtain arthrocentesis of the joint fluid, and so warfarin for now is on hold. After arthrocentesis, if no additional procedures are necessary, warfarin may be resumed. Appreciate surgical follow-up. After discussion with surgery, patient and patient's son, warfarin could be resumed. Hemoglobin will need to be be reassessed. After discharge would benefit from follow-up with a grain oilseed or pasture grower and neurosurgeon who may help deter mine whether she still requires to be on anticoagulation lifelong. Was reluctant for endoscopic evaluation with surgery. Responded well to 2 units PRBC transfusion, with hemoglobin rise up to 9, and 8.9 on recheck. CC diet. She is still feeling fatigued, but otherwise doing better. Hemodynamically has remained stable. Continue PPI. Status: Acute (3) Supratherapeutic INR: Resolved. Received FFP on admission. Then also vitamin K 2.5 mg. Status: Acute (4) Melena: Heme positive stool. Appears has had a normal BM. Status: Acute (5) Acute kidney injury: Cr apppears stable. Monitor. Status: Acute (6) DVT (deep venous thrombosis): For now anticoagulation is to be on hold for additional assessment of painful left wrist, radiocarpal joint effusion. Discussed with surgery. Potentially may be able to restart now that INR is back to normal. Hemoglobin stable. Discussed with patient and her son, as well as her PCP with regards to anticoagulation. Appears she had history of thrombosis back in 1990, although there is not much detail as to the nature of thrombosis. Appears it was intracranial thrombosis. Patient is not sure if it was a venous or other, but says that she had some a aphasia/dysarthria subsequently. I have asked her multiple times whether this was a stroke, and she is adamant it was not a stroke, but some sort of other thrombosis. Makes me consider whether this may be was venous dural thrombosis, or other thrombus. Her son is not sure of the nature of this. Does confirm the timing of the thrombosis. PCP is not aware of this history as she is only been with them since recently. If hemoglobin remains stable, potentially we may restart anticoagulation. May benefit from follow-up with neurology and hematology in office to see whether still needs to continue anticoagulation lifelong. For now added prophylactic dose Lovenox. Will monitor. Status: Acute (7) Type 2 diabetes mellitus: Consistent carb clear liquid diet. Oral hypoglycemics on hold for now. Status: Acute (8) Hypocalcemia: Again replaced. Recheck. Increased calcitriol dose to 0.75. 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 Status: Acute (9) Community acquired pneumonia: Continue antibiotics. Has been doing well on minimal O2. Leukosytosis, tachycardia resolved. No respiratory complaints. Bacterial antigens, blood culture negative, rapid flu, COVID-19 rapid antigen negative. She has no respiratory complaints, and so I would consider pneumonia is likely resolving, although does have low-grade fevers still spiking intermittently. Would think this may be more related to what is going on with her left wrist. Discussed with her son. Status: Acute Attestations Medical Necessity Statement*: Continue admission for assessment management of left wrist pain, recurrent fever, recent GI bleed after supratherapeutic INR, recurrent hypocalcemia with hypoparathyroidism. Coding Level of Care Code Acute Clarification Operator for [facility] Fwd Diagnoses Left wrist pain M25.532 Upper GI bleed K92.2 Supratherapeutic INR R79.1 Melena K92.1 Acute kidney injury N17.9 DVT (deep venous thrombosis) I82.409 Type 2 diabetes mellitus E11.9 Hypocalcemia E83.51 Community acquired pneumonia J18.9
[2020-03-28] MEDS: enoxaparin 40 mg/0.4 mL Syringe SUBCUT (22:11)
[2020-03-28] MEDS: cefTRIAXone 1,000 MG in sodium chloride 0.9% (plus) 50 ML 100 MG IV (22:12)
[2020-03-28] MEDS: azithromycin 500 MG in sodium chloride 0.9% 250 ML 250 MG IV (22:24)
[2020-03-29] VITALS (7 sets, daily range): BP systolic 133–168; BP diastolic 71–88; PULSE 63–74; RESP 14–18; TEMP 36.5–37.2; O2SAT 93–98
[2020-03-29 04:37] LABS: Basophils % 0.3 %; Eosinophils # 0.2 10^3/uL (0.0-0.8); Eosinophils % 1.4 %; Hematocrit 26.2 % (37.0-47.0); Hemoglobin 8.3 g/dL (11.5-15.3); Lymphocytes # 1.2 10^3/uL (0.8-4.8); Mean Corpuscular HGB Conc 31.7 g/dL (30.0-36.0); Mean Corpuscular Hemoglobin 25.9 pg (28.0-34.0); Mean Corpuscular Volume 81.6 fL (81-99); Mean Platelet Volume 9.5 fL (7.4-10.4); Monocytes # 1.3 10^3/uL (0.2-0.9); Monocytes % 11.7 %; Neutrophils # 8.69 10^3/uL (1.8-7.7); Neutrophils % 75.9 %; Nucleated Red Blood Cells % 0 %; Platelet Count 483 10^3/cmm (130-400); Red Blood Count 3.21 10^6/uL (4.1-5.3); Red Cell Distribution Width 17.2 % (12.1-15.1); White Blood Count 11.5 10^3/uL (4.0-10.0)
[2020-03-29 04:54] LABS: Alanine Aminotransferase 20 U/L (0-33); Albumin Level 2.4 g/dL (3.5-5.2); Alkaline Phosphatase 144 IU/L (35-105); Anion Gap 14.5 (5-19); Aspartate Amino Transferase 25 U/L (0-32); Blood Urea Nitrogen 20 mg/dL (8-23); Carbon Dioxide 24 mmol/L (22-29); Chloride 101 mmol/L (98-107); Globulin 3.8 g/dL (1.3-4.6); Glucose 216 mg/dL (65-115); Osmolality Calculated 285 mOsm/kg (285-295); Potassium 3.5 mmol/L (3.5-5.1); Sodium 136 mmol/L (136-145); Total Bilirubin 0.5 mg/dL (0.15-1.2); Total Protein 6.2 g/dL (6.6-8.7)
[2020-03-29] MEDS: amlodipine 5 mg Tablet PO (08:52)
[2020-03-29] MEDS: calcitriol 0.25 mcg Capsule 0.75 MCG PO (08:52)
[2020-03-29] MEDS: citalopram 20 mg Tablet 10 MG PO ×2 (08:52→18:41)
[2020-03-29] MEDS: levothyroxine 150 mcg Tablet PO (08:53)
[2020-03-29] MEDS: cyanocobalamin 1,000 mcg Tablet 1000 MCG PO (08:53)
[2020-03-29] MEDS: gabapentin 300 mg Capsule PO ×2 (08:53→18:41)
[2020-03-29] MEDS: carvedilol 3.125 mg Tablet PO ×2 (08:53→21:26)
[2020-03-29] MEDS: pantoprazole 40 mg SDV IVP ×2 (09:22→22:56)
[2020-03-29] MEDS: acetaminophen 325 mg Tablet 650 MG PO (10:55)
--- NOTE | 2020-03-29 16:08 | PM.PN ---
Subjective Subjective: Interval history: c/o pain over the left wrist. Afebrile. Medications: Reviewed: Yes Vitals/I&O/Wt Last Vital Signs Temp 97.7 F 03/29/20 15:49 Pulse 63 03/29/20 15:49 Resp 14 03/29/20 15:49 BP 133/71 03/29/20 15:49 Pulse Ox 97 03/29/20 15:49 03/29/20 03/29/20 03/29/20 06:59 14:59 22:59 Intake Total 840 / 840 Output Total 600 / 600 Balance 840 / 840 -600 / 240 Physical Exam Narrative: EXAM NARRATIVE: GEN: Awake, alert and oriented, no acute distress CVS: S1S2 N RS: CTA B/L Abd: Soft, nt/nd , bs+ GEODETIC SURVEYOR TECHNOLOGIST: no focal neuro deficits ext: left wrist swelling,. pain Data : 03/29/20 03:58 03/29/20 03:58 Micro: Microbiology 03/23/20 17:32 Blood Culture - Final Blood NO GROWTH AFTER 5 DAYS 03/23/20 17:30 Blood Culture - Final Blood NO GROWTH AFTER 5 DAYS A&P Assessment and plan (1) Left wrist pain: Obtained noncontrast CT of the left forearm. 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 Noted effusion in the radiocarpal joint and distal radial ulnar joint. No fracture noted again. Soft tissue edema of subcutaneous fat over the dorsal forearm. No fluid collection or abscess. On physical examination she has no redness there. There is some swelling. CPPD may be suspected, and perhaps low-grade fevers (today up to 100 Fahrenheit) may be secondary to this, but discussed with her and her son that although probability is low, cannot entirely exclude infection in the joint, due to this we will hold additionally warfarin for now. Radiology should be back starting tomorrow, and arthrocentesis of the wrist would provide additional assessment of the joint fluid to help exclude the low likelihood of infection, assess for crystals, etc. Otherwise should follow-up with rheumatology after discharge, and I wonder if her chronic knee problems are due to a similar condition. Difficulty moving her left wrist due to pain. Some progressive swelling initially. I do not appreciate much swelling on exam, there is no redness, but does have pain on passive range of motion. No pain on passive range of motion of the shoulder. Does appear to pull away her arm when moving the elbow, but this is inconsistent, and appears more due to pain in the wrist. Obtained x-ray of the wrist which shows no fracture. Left upper extremity duplex shows no DVT. There is good capillary refill of the digits. Elevate left upper extremity. Has been receiving calcium replacement. Phosphorus checked and is normal. Status: Acute (2) Upper GI bleed: Gradual downtrend of hemoglobin, currently down to 8.2, no overt bleeding. Had warfarin resumed, with 1 dose given on 03/27, however, given CT findings in the left wrist, would like to obtain arthrocentesis of the joint fluid, and so warfarin for now is on hold. After arthrocentesis, if no additional procedures are necessary, warfarin may be resumed. Appreciate surgical follow-up. After discussion with surgery, patient and patient's son, warfarin could be resumed. Hemoglobin will need to be be reassessed. After discharge would benefit from follow-up with a internet technology manager and neurosurgeon who may help determine whether she still requires to be on anticoagulation lifelong. Was reluctant for endoscopic evaluation with surgery. Responded well to 2 units PRBC transfusion, with hemoglobin rise up to 9, and 8.9 on recheck. CC diet. She is still feeling fatigued, but otherwise doing better. Hemodynamically has remained stable. Continue PPI. Status: Acute (3) Supratherapeutic INR: Resolved. Received FFP on admission. Then also vitamin K 2.5 mg. Status: Acute (4) Melena: Heme positive stool. Appears has had a normal BM. Status: Acute (5) Acute kidney injury: Cr apppears stable. Monitor. Status: Acute (6) DVT (deep venous thrombosis): For now anticoagulation is to be on hold for additional assessment of painful left wrist, radiocarpal joint effusion. Discussed with surgery. Potentially may be able to restart now that INR is back to normal. Hemoglobin stable. Discussed with patient and her son, as well as her PCP with regards to anticoagulation. Appears she had history of thrombosis back in 1990, although there is not much detail as to the nature of thrombosis. Appears it was intracranial thrombosis. Patient is not sure if it was a venous or other, but says that she had some a aphasia/dysarthria subsequently. I have asked her multiple times whether this was a stroke, and she is adamant it was not a stroke, but some sort of other thrombosis. Makes me consider whether this may be was venous dural thrombosis, or other thrombus. Her son is not sure of the nature of this. Does confirm the timing of the thrombosis. PCP is not aware of this history as she is only been with them since recently. If hemoglobin remains stable, potentially we may restart anticoagulation. May benefit from follow-up with neurology and hematology in office to see whether still needs to continue anticoagulation lifelong. For now added prophylactic dose Lovenox. Will monitor. Status: Acute (7) Type 2 diabetes mellitus: Consistent carb clear liquid diet. Oral hypoglycemics on hold for now. Status: Acute (8) Hypocalcemia: Again replaced. Recheck. Increased calcitriol dose to 0.75. 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 Status: Acute (9) Community acquired pneumonia: Continue antibiotics. Has been doing well on minimal O2. Leukosytosis, tachycardia resolved. No respiratory complaints. Bacterial antigens, blood culture negative, rapid flu, COVID-19 rapid antigen negative. She has no respiratory complaints, and so I would consider pneumonia is likely resolving, although does have low-grade fevers still spiking intermittently. Would think this may be more related to what is going on with her left wrist. Discussed with her son. Status: Acute Additional A&P Information Acute blood loss anemia Supratherapeutic INR secondary to Coumadin and dietary indiscretion FOBT positive rectal exam Hematemesis No history of liver cirrhosis, hepatitis C or portal hypertension I believe her hematemesis is secondary to supratherapeutic INR with potential upper GI bleeding ulcer, Dr. Young consulted, currently on Protonix 40 IV twice daily, n.p.o. Supratherapeutic INR with active bleeding Patient has received 1 unit of FFP, I would give 1 dose of vitamin K, 2 units of PRBC ordered Protonix 40 IV twice daily Hold Coumadin Acute on chronic hypocalcemia: I would start her on IV calcium replenishment no active signs of tetany or QT prolongation Community-acquired pneumonia without sepsis Leukocytosis without tachycardia, tachypnea or hypoxia Treat with ceftriaxone and azithromycin, COVID antigen negative NANO secondary to vomiting and hydration Anticipate improvement with fluid resuscitation Full code N.p.o. Patient has a h/o gout, has been off allopurinol since admission. resume the same. Start po prednisone as avoiding Nsaids. Check uric acid level DVT prophylaxis contraindicated Attestations Medical Necessity Statement*: left wrist swelling, low grade fever, starting steroids Coding Level of Care Code Acute Caustic Mixer for [facility] Fwd Diagnoses Left wrist pain M25.532 Upper GI bleed K92.2 Supratherapeutic INR R79.1 Melena K92.1 Acute kidney injury N17.9 DVT (deep venous thrombosis) I82.409 Type 2 diabetes mellitus E11.9 Hypocalcemia E83.51 Community acquired pneumonia J18.9
[2020-03-29] MEDS: atorvastatin 40 mg Tablet 20 MG PO (18:41)
[2020-03-29] MEDS: cefTRIAXone 1,000 MG in sodium chloride 0.9% (plus) 50 ML 100 MG IV (21:26)
[2020-03-29] MEDS: enoxaparin 40 mg/0.4 mL Syringe SUBCUT (21:31)
[2020-03-29] MEDS: azithromycin 500 MG in sodium chloride 0.9% 250 ML 250 MG IV (23:08)
[2020-03-30] VITALS: BP 145/71; PULSE 67; RESP 18; TEMP 37; O2SAT 96
[2020-03-30 04:00] VITALS: BP 154/75; PULSE 70; RESP 17; TEMP 36.7; O2SAT 94
[2020-03-30 05:39] LABS: Basophils # 0.1 10^3/uL (0.0-0.1); Basophils % 0.7 %; Eosinophils # 0.2 10^3/uL (0.0-0.8); Eosinophils % 1.7 %; Hematocrit 25.3 % (37.0-47.0); Hemoglobin 7.6 g/dL (11.5-15.3); Lymphocytes # 1.3 10^3/uL (0.8-4.8); Mean Corpuscular Hemoglobin 25.1 pg (28.0-34.0); Mean Corpuscular Volume 83.5 fL (81-99); Mean Platelet Volume 10.7 fL (7.4-10.4); Monocytes # 1.1 10^3/uL (0.2-0.9); Monocytes % 10.8 %; Neutrophils # 7.48 10^3/uL (1.8-7.7); Neutrophils % 73.3 %; Nucleated Red Blood Cells % 0 %; Platelet Count 453 10^3/cmm (130-400); Red Blood Count 3.03 10^6/uL (4.1-5.3); Red Cell Distribution Width 17.6 % (12.1-15.1); White Blood Count 10.2 10^3/uL (4.0-10.0)
[2020-03-30 06:06] LABS: Alanine Aminotransferase 25 U/L (0-33); Albumin Level 2.1 g/dL (3.5-5.2); Alkaline Phosphatase 136 IU/L (35-105); Blood Urea Nitrogen 23 mg/dL (8-23); Calcium 7.2 mg/dL (8.5-10.5); Carbon Dioxide 24 mmol/L (22-29); Chloride 101 mmol/L (98-107); Globulin 3.9 g/dL (1.3-4.6); Glucose 238 mg/dL (65-115); Osmolality Calculated 286 mOsm/kg (285-295); Sodium 136 mmol/L (136-145); Total Bilirubin 0.4 mg/dL (0.15-1.2)
[2020-03-30 06:09] LABS: Anion Gap 14.6 (5-19); Aspartate Amino Transferase 30 U/L (0-32); Potassium 3.6 mmol/L (3.5-5.1)
[2020-03-30 07:28] VITALS: BP 152/54; PULSE 68; RESP 18; TEMP 36.8; O2SAT 96
[2020-03-30] MEDS: calcitriol 0.25 mcg Capsule 0.75 MCG PO (08:54)
[2020-03-30] MEDS: amlodipine 5 mg Tablet PO (08:55)
[2020-03-30] MEDS: citalopram 20 mg Tablet 10 MG PO ×2 (08:55→17:22)
[2020-03-30] MEDS: predniSONE 20 mg Tablet PO (08:55)
[2020-03-30] MEDS: carvedilol 3.125 mg Tablet PO ×2 (08:55→21:30)
[2020-03-30] MEDS: gabapentin 300 mg Capsule PO ×2 (08:55→17:22)
[2020-03-30] MEDS: cyanocobalamin 1,000 mcg Tablet 1000 MCG PO (08:55)
[2020-03-30] MEDS: levothyroxine 150 mcg Tablet PO (08:55)
[2020-03-30] MEDS: pantoprazole 40 mg SDV IVP (10:24)
[2020-03-30] MEDS: allopurinol 100 mg Tablet PO (10:24)
--- NOTE | 2020-03-30 15:28 | P.PN_ITS ---
Subjective Subjective: Interval history: Left arm pain is better. She is continuing Coumadin. Hemoglobin at 7.6 today. no [place] or hematemesis Medications: Reviewed: Yes Vitals/I&O/Wt Last Vital Signs Temp 98.3 F 03/30/20 07:28 Pulse 68 03/30/20 07:28 Resp 18 03/30/20 07:28 BP 152/54 03/30/20 07:28 Pulse Ox 96 03/30/20 07:28 03/30/20 03/30/20 03/30/20 06:59 14:59 22:59 Intake Total 480 / 480 Output Total 400 / 1000 Balance -400 / 220 480 / 480 Physical Exam Narrative: EXAM NARRATIVE: GEN: Awake, alert and oriented, no acute distress CVS: S1S2 N RS: CTA B/L Abd: Soft, nt/nd , bs+ RESIDENTIAL CARE FACILITY MANAGER: no focal neuro deficits ext: left wrist swelling,. 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 Noted effusion in the radiocarpal joint and distal radial ulnar joint. No fracture noted again. Soft tissue edema of subcutaneous fat over the dorsal forearm. No fluid collection or abscess. On physical examination she has no redness there. There is some swelling. CPPD vs gout may be suspected, and perhaps low-grade fevers (today up to 100 Fahrenheit) may be secondary to those. Started On prednisone with some relief. low suspicion for septic arthritis Given that swelling has developed while patient is on ceftriaxone and azithromycin. More likely that she has been off allopurinol and reports gout flares from time to time. Difficulty moving her left wrist due to pain. There is good capillary refill of the digits. Elevate left upper extremity. Has been receiving calcium replacement. Phosphorus checked and is normal. Status: Acute (2) Upper GI bleed: Gradual downtrend of hemoglobin, currently down to 7.6, no overt bleeding. Had warfarin resumed Getting OT assessment and evaluation today. Will check INR tomorrow morning. But then discontinued due to possible arthrocentesis. However will defer this procedure for now as clinically most appears to be inflammatory arthritis. Holding Coumadin again as hemoglobin trended down to 7.6. Recheck H&H this evening. Transfusion threshold at 7. Was reluctant for endoscopic evaluation with surgery. s/p 2 units PRBC transfusion Status: Acute (3) Supratherapeutic INR: Resolved. Received FFP on admission. Then also vitamin K 2.5 mg. Status: Acute (4) Melena: Heme positive stool. Appears has had a normal BM. Refused endoscopy. Status: Acute (5) Acute kidney injury: Cr apppears stable. Monitor. Status: Acute (6) DVT (deep venous thrombosis): For now anticoagulation is to be on hold for GI bleed, downward drift of Hb. Appears she had history of thrombosis back in 1990, although there is not much detail as to the nature of thrombosis. Appears it was intracranial thrombosis. Patient is not sure if it was a venous or other, but says that she had some a aphasia/dysarthria subsequently. I have asked her multiple times whether this was a stroke, and she is adamant it was not a stroke, but some sort of other thrombosis. Makes me consider whether this may be was venous dural thrombosis, or other thrombus. Her son is not sure of the nature of this. Does confirm the timing of the thrombosis. PCP is not aware of this history as she is only been with them since recently. If hemoglobin remains stable, potentially we may restart anticoagulation. May b enefit from follow-up with neurology and hematology in office to see whether still needs to continue anticoagulation lifelong. Status: Acute (7) Type 2 diabetes mellitus: Consistent carb clear liquid diet. Oral hypoglycemics on hold for now. Status: Acute (8) Hypocalcemia: Again replaced. Recheck. Increased calcitriol dose to 0.75. 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 Status: Acute (9) Community acquired pneumonia: Discontinue antibiotics today. Has been doing well on minimal O2. Leukosytosis, tachycardia resolved. No respiratory complaints. Bacterial antigens, blood culture negative, rapid flu, COVID-19 rapid antigen negative. Status: Acute Additional A&P Information Full code carb consistent diet Patient has a h/o gout, has been off allopurinol since admission. resume the same. Start po prednisone as avoiding Nsaids. Attestations Medical Necessity Statement*: drifting hemoglobin, negative keep a close check especially with resuming Coumadin Coding Level of Care Code Acute Last Repairer Helper for [facility] Fwd Diagnoses Left wrist pain M25.532 Upper GI bleed K92.2 Supratherapeutic INR R79.1 Melena K92.1 Acute kidney injury N17.9 DVT (deep venous thrombosis) I82.409 Type 2 diabetes mellitus E11.9 Hypocalcemia E83.51 Community acquired pneumonia J18.9
[2020-03-30 16:00] VITALS: BP 147/75; PULSE 76; RESP 18; TEMP 36.5; O2SAT 94
[2020-03-30] MEDS: atorvastatin 40 mg Tablet 20 MG PO (17:22)
[2020-03-30] MEDS: pantoprazole DR 40 mg Tablet PO (17:22)
[2020-03-30 18:27] LABS: Hematocrit 30.6 % (37.0-47.0)
--- NOTE | 2020-03-30 18:56 | PC.NURSE ---
End of shift summary Patient swelling in her left hand is better along with the pain in her hand. Patient should discharge tomorrow to home with [facility]. Patient has her IV in her left foot. Patient is A&Ox3. Respirations even and non-labored on room air. Patient is a 2x assist to the bedside commode.
[2020-03-30 20:00] VITALS: BP 155/70; PULSE 75; RESP 19; TEMP 36.8; O2SAT 96
[2020-03-30] MEDS: enoxaparin 40 mg/0.4 mL Syringe SUBCUT (21:29)
[2020-03-30 23:47] VITALS: BP 129/70; PULSE 60; RESP 16; TEMP 36.9; O2SAT 92
[2020-03-30] MEDS: acetaminophen 325 mg Tablet 650 MG PO (23:56)
[2020-03-31] VITALS (11 sets, daily range): BP systolic 122–168; BP diastolic 67–82; PULSE 62–76; RESP 14–18; TEMP 36.3–36.9; O2SAT 94–99
[2020-03-31 05:37] LABS: Basophils # 0.1 10^3/uL (0.0-0.1); Basophils % 0.5 %; Eosinophils # 0.1 10^3/uL (0.0-0.8); Eosinophils % 0.5 %; Hematocrit 25.2 % (37.0-47.0); Hemoglobin 7.6 g/dL (11.5-15.3); Lymphocytes # 1.3 10^3/uL (0.8-4.8); Lymphocytes % 12.6 %; Mean Corpuscular HGB Conc 30.2 g/dL (30.0-36.0); Mean Corpuscular Hemoglobin 25.1 pg (28.0-34.0); Mean Corpuscular Volume 83.2 fL (81-99); Mean Platelet Volume 10.1 fL (7.4-10.4); Monocytes # 0.9 10^3/uL (0.2-0.9); Monocytes % 8.6 %; Neutrophils # 8.14 10^3/uL (1.8-7.7); Neutrophils % 77.1 %; Nucleated Red Blood Cells % 0 %; Platelet Count 458 10^3/cmm (130-400); Red Blood Count 3.03 10^6/uL (4.1-5.3); Red Cell Distribution Width 17.2 % (12.1-15.1); White Blood Count 10.6 10^3/uL (4.0-10.0)
[2020-03-31 06:01] LABS: Alanine Aminotransferase 25 U/L (0-33); Albumin Level 2.4 g/dL (3.5-5.2); Alkaline Phosphatase 126 IU/L (35-105); Anion Gap 19.6 (5-19); Aspartate Amino Transferase 23 U/L (0-32); Blood Urea Nitrogen 29 mg/dL (8-23); Carbon Dioxide 20 mmol/L (22-29); Chloride 99 mmol/L (98-107); Globulin 3.9 g/dL (1.3-4.6); Glucose 402 mg/dL (65-115); Osmolality Calculated 294 mOsm/kg (285-295); Potassium 3.6 mmol/L (3.5-5.1); Sodium 135 mmol/L (136-145); Total Bilirubin 0.3 mg/dL (0.15-1.2); Total Protein 6.3 g/dL (6.6-8.7)
[2020-03-31 06:04] LABS: INR 2.31 (0.8-1.2)
[2020-03-31] MEDS: allopurinol 100 mg Tablet PO (08:16)
[2020-03-31] MEDS: cyanocobalamin 1,000 mcg Tablet 1000 MCG PO (08:16)
[2020-03-31] MEDS: amlodipine 5 mg Tablet PO (08:16)
[2020-03-31] MEDS: predniSONE 20 mg Tablet PO (08:16)
[2020-03-31] MEDS: levothyroxine 150 mcg Tablet PO (08:16)
[2020-03-31] MEDS: gabapentin 300 mg Capsule PO ×2 (08:17→17:38)
[2020-03-31] MEDS: pantoprazole DR 40 mg Tablet PO ×2 (08:17→17:38)
[2020-03-31] MEDS: citalopram 20 mg Tablet 10 MG PO ×2 (08:17→17:38)
[2020-03-31] MEDS: carvedilol 3.125 mg Tablet PO ×2 (10:00→22:10)
--- NOTE | 2020-03-31 14:06 | P.PN_ITS ---
Subjective Subjective: Interval history: Symptomatically starting to feel improved. Was able to ambulate about 5 feet today with support. Hemoglobin at 7.6 from 9 yesterday. No gross melena. INR at 2.3 today. Coumadin has remained on hold during this duration. Left wrist swelling is improving today significantly. It is nearly resolved. Patient has remained afebrile. Her blood sugar today is noted to be deranged. She is not a known diabetic on glipizide at home. Likely steroids are contributing. Insulin has been added to her regimen. 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 Noted effusion in the radiocarpal joint and distal radial ulnar joint. No fracture noted again. Soft tissue edema of subcutaneous fat over the dorsal forearm. No fluid collection or abscess. Now this is significantly improving. CPPD vs gout may be suspected, and perhaps low-grade fevers (today up to 100 Fahrenheit) may be secondary to those. Started On prednisone now with significant improvement.. low suspicion for septic arthritis given lack of systemic signs and development on antibiotics. More likely that she has been off allopurinol and reports gout flares from time to time. Status: Acute (2) Upper GI bleed: Gradual downtrend of hemoglobin, currently down to 7.6, no overt bleeding. Transfuse 1 unit of blood today. Patient had presented with a hemoglobin at 7.6 and had continued to feel weak, significantly improved after blood transfusion. Hemoglobin has had a drop from 9-7.6. We will go ahead and transfuse 1 unit today. Declined intervention including upper or lower endoscopy. Status: Acute (3) Supratherapeutic INR: Resolved. Received FFP on admission. Then also vitamin K 2.5 mg. Coumadin has continued to be on hold INR today is at 2.3. INR has fluctuated during the course of admission and at home. Unsure of the reason as to why patient is on anticoagulation and also if it was intended to be lifelong. After extensive discussion with patient and patient's son, it has been decided to hold anticoagulation with warfarin now and upon discharge. Within 1 week she is to follow-up with with her PCP, get a repeat hemoglobin check. At that time it may be determined as an outpatient if she is still benefiting from long-term anticoagulation or not. Status: Acute (4) Melena: Heme positive stool. Appears has had a normal BM. Refused endoscopy. Status: Acute (5) Acute kidney injury: Cr apppears stable. Monitor. Status: Acute (6) DVT (deep venous thrombosis): For now anticoagulation is to be on hold for GI bleed, downward drift of Hb. Appears she had history of thrombosis back in 1990, although there is not much detail as to the nature of thrombosis. Appears it was intracranial thrombosis. Patient is not sure if it was a venous or other, but says that she had some a aphasia/dysarthria subsequently. I have asked her multiple times whether this was a stroke, and she is adamant it was not a stroke, but some sort of other thrombosis. Makes me consider whether this may be was venous dural thrombosis, or other thrombus. Her son is not sure of the nature of this. Does confirm the timing of the thrombosis. PCP is not aware of this history as she is only been with them since recently. If hemoglobin remains stable, potentially we may restart anticoagulation. May benefit from follow-up with neurology and hematology in office to see whether still needs to continue anticoagulation lifelong. Status: Acute (7) Type 2 diabetes mellitus: Consistent carb diet Add medium dose insulin sliding scale now that patient is eating, also blood sugar at 400 today, likely contributed by p.o. prednisone which is been started for gout flare. Status: Acute (8) Hypocalcemia: Improving Increased calcitriol dose to 0.75. 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 Status: Acute (9) Community acquired pneumonia: Completed an antibiotic course. Has been doing well on minimal O2. Leukosytosis, tachycardia resolved. No respiratory complaints. Bacterial antigens, blood culture negative, rapid flu, COVID-19 rapid antigen negative. Status: Acute Additional A&P Information Full code carb consistent diet Patient has a h/o gout, has been off allopurinol since admission. resume the same. Start po prednisone as avoiding Nsaids. follow up with rheumatology as outapteint Disposition plan discharge in the upcoming 24 hours if hemoglobin remained stable. Attestations Medical Necessity Statement*: Hyperglycemia, blood sugar greater than 400, ne ed to start insulin, blood transfusion today. Coding Level of Care Code Acute Pipe And Test Supervisor for Chg Fwd Diagnoses Left wrist pain M25.532 Upper GI bleed K92.2 Supratherapeutic INR R79.1 Melena K92.1 Acute kidney injury N17.9 DVT (deep venous thrombosis) I82.409 Type 2 diabetes mellitus E11.9 Hypocalcemia E83.51 Community acquired pneumonia J18.9
[2020-03-31 14:41] LABS: Glucose Point of Care 438 mg/dL (70-110)
--- NOTE | 2020-03-31 16:47 | PC.NURSE ---
Unit of blood started at this time. Patient is A&Ox3. Respirations even and non-labored on 1 liter of oxygen. Patient denies any needs.
[2020-03-31] MEDS: sodium chloride 0.9% (100 ml) 100 ML 25 ML (16:52)
[2020-03-31 17:10] LABS: Glucose Point of Care 446 mg/dL (70-110)
[2020-03-31] MEDS: atorvastatin 40 mg Tablet 20 MG PO (17:38)
--- NOTE | 2020-03-31 19:00 | PC.NURSE ---
Unit of blood completed at this time. Patient is A&Ox3. Respirations even and non-labored on 1 liter of oxygen. Patient denies any needs.
[2020-03-31 21:35] LABS: Glucose Point of Care 381 mg/dL (70-110)
[2020-03-31] MEDS: enoxaparin 40 mg/0.4 mL Syringe SUBCUT (22:09)
[2020-03-31] MEDS: acetaminophen 325 mg Tablet 650 MG PO (22:09)
[2020-04-01] VITALS (8 sets, daily range): BP systolic 156–176; BP diastolic 71–80; PULSE 62–73; RESP 14–18; TEMP 36.6–37.1; O2SAT 92–98
[2020-04-01 06:30] LABS: Basophils % 0.3 %; Eosinophils # 0.1 10^3/uL (0.0-0.8); Eosinophils % 0.8 %; Hemoglobin 8.6 g/dL (11.5-15.3); Lymphocytes # 1.7 10^3/uL (0.8-4.8); Lymphocytes % 16.3 %; Mean Corpuscular HGB Conc 30.7 g/dL (30.0-36.0); Mean Corpuscular Volume 81.4 fL (81-99); Mean Platelet Volume 10.7 fL (7.4-10.4); Monocytes # 0.7 10^3/uL (0.2-0.9); Neutrophils # 7.69 10^3/uL (1.8-7.7); Neutrophils % 74.3 %; Nucleated Red Blood Cells % 0 %; Platelet Count 493 10^3/cmm (130-400); Red Blood Count 3.44 10^6/uL (4.1-5.3); Red Cell Distribution Width 17.1 % (12.1-15.1); White Blood Count 10.3 10^3/uL (4.0-10.0)
[2020-04-01 06:44] LABS: Alanine Aminotransferase 26 U/L (0-33); Albumin Level 2.5 g/dL (3.5-5.2); Alkaline Phosphatase 115 IU/L (35-105); Aspartate Amino Transferase 26 U/L (0-32); Blood Urea Nitrogen 28 mg/dL (8-23); Carbon Dioxide 25 mmol/L (22-29); Chloride 102 mmol/L (98-107); Globulin 3.7 g/dL (1.3-4.6); Glucose 279 mg/dL (65-115); Osmolality Calculated 291 mOsm/kg (285-295); Sodium 137 mmol/L (136-145); Total Bilirubin 0.2 mg/dL (0.15-1.2); Total Protein 6.2 g/dL (6.6-8.7)
[2020-04-01 06:52] LABS: Glucose Point of Care 278 mg/dL (70-110)
[2020-04-01 07:00] LABS: Anion Gap 13.9 (5-19); Potassium 3.9 mmol/L (3.5-5.1)
[2020-04-01] MEDS: citalopram 20 mg Tablet 10 MG PO ×2 (08:58→18:17)
[2020-04-01] MEDS: cyanocobalamin 1,000 mcg Tablet 1000 MCG PO (08:58)
[2020-04-01] MEDS: levothyroxine 150 mcg Tablet PO (08:59)
[2020-04-01] MEDS: gabapentin 300 mg Capsule PO ×2 (09:00→18:16)
[2020-04-01] MEDS: allopurinol 100 mg Tablet PO (09:00)
[2020-04-01] MEDS: pantoprazole DR 40 mg Tablet PO ×2 (09:01→18:16)
[2020-04-01] MEDS: predniSONE 20 mg Tablet PO (09:02)
[2020-04-01] MEDS: carvedilol 3.125 mg Tablet PO (09:02)
[2020-04-01] MEDS: amlodipine 5 mg Tablet PO (09:02)
--- NOTE | 2020-04-01 10:00 | PC.SOCIAL ---
IMM Update Pg. 2 of IMM updated and reviewed with patient, copy provided.
[2020-04-01 11:01] LABS: Glucose Point of Care 420 mg/dL (70-110)
[2020-04-01] MEDS: calcitriol 0.25 mcg Capsule 0.75 MCG PO (11:43)
--- NOTE | 2020-04-01 13:52 | PM.DCS ---
Discharge Providers Date of Admission: 03/23/20 20:43 Date of Discharge: April 01, 2020 Attending Provider at Admission: Lucas Price MD Attending Provider at Discharge: Stephanie Feng MD Primary Care Provider: Mercedes Lawrence Diagnoses at Discharge Discharge Diagnosis (1) Left wrist pain: Status: Acute (2) Upper GI bleed: Status: Acute (3) Supratherapeutic INR: Status: Acute (4) Melena: Status: Acute (5) Acute kidney injury: Status: Acute (6) Type 2 diabetes mellitus: Status: Acute Qualifiers: Diabetes mellitus ferry terminal supervisor insulin use: without ferry terminal supervisor use Diabetes mellitus complication status: without complication Qualified Code(s): E11.9 - Type 2 diabetes mellitus without complications (7) Hypocalcemia: Status: Acute (8) Community acquired pneumonia: Status: Acute Qualifiers: Laterality: right Lung location: upper lobe of lung Qualified Code(s): J18.9 - Pneumonia, unspecified organism Other Information Additional DC diagnoses/information: Brandy Freitas is a 80 year old female who carries history of type 2 diabetes, hypertension, gout, B12 deficiency, thyroidectomy, parathyroidectomy for thyroid mass, 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 Diagnostic in the ER revealed worsening anemia, hemodynamically stable, 2 units PRBC ordered, for hypercalcemia calcium IV given, right upper lobe pneumonia, ceftriaxone, azithromycin initiated, rectal exam revealed FOBT positive stool, Dr. Young consulted, patient refused endoscopic evaluation as HB otherwise started to improve. She did also need to undergo reversal of INR upon presentation. In spite of COumadin being on hold for most part of the admission, her INR has continued to be between 2-3. It is not entirely clear as to why she is on Coumadin. Per discussion with her son this was, initiated sometime in the for what appears to be either a stroke 0 venous thrombosis. Both patient and son are unaware as to how long she was supposed to be on it. Given that patient's hemoglobin tended to remain on 7.6 and required transfusion with positive FOBT, it has been decided after discussion with the patient and her son and off on resuming warfarin on discharge as the risks of bleeding did not appear to outweigh the benefits at this present time. It is recommended that she recheck her hemoglobin in a week's time and if stable to improving, discussed with her primary care physician after obtaining more information as to the circumstances of anticoagulation or further lifelong anticoagulation is warranted. She did not have any A. fib during the course of her admission here. Her course was also notable for left wrist swelling, raising suspicion for gout versus CPPD her allopurinol had been on hold and was eventually resumed during that admission. NSAIDs were avoided for possible gout flare and instead she was given prednisone 20 mg over 4 days which improved her stressed swelling and her range of motion is back to normal. There was no suspicion for infected joint as the swelling developed while the patient was on antibiotics and there were no other associated systemic signs. 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 She is hemodynamically stable at the time of discharge. Reason for Visit Reason for Visit: FEVER, WEAKNESS, PNEUMONIA Discharge Data Data Completed and Pending: Completed Studies During Hospitalization Category Date Time Status CT angio chest PE protcl [id number] Stat Cat Scan 03/23/20 18:[address] forearm LT wo con* [id number] Routine Cat Scan 03/27/20 11:36 Completed XR chest 1V haider ble [id number] Stat Exams 03/23/20 16:46 Completed XR wrist LT min 3 V* [id number] Routine Exams 03/26/20 15:36 [place] [id number] Routin e Ultrasound 03/26/20 15:19 Completed Pending at discharge Category Date Time Status Sputum Culture an d Gram Stain Routi ne Lab 03/27/20 07:46 Uncollected Urinalysis Stat Lab 03/23/20 21:29 Ordered Labs from last 24 hours 04/01/20 04/01/20 04/01/20 10:54 06:46 05:57 WBC RBC Hgb Hct MCV MCH MCHC RDW Plt Count MPV Neut % (Auto) Lymph % (Auto) Coles % (Auto) Eos % (Auto) Baso % (Auto) Neut # (Auto) Lymph # (Auto) Coles # (Auto) Eos # (Auto) Baso # (Auto) Nucleated RBC % (a uto) Nucleated RBCs # Sodium 137 Potassium 3.9 Chloride 102 Carbon Dioxide 25 Anion Gap 13.9 BUN 28 H Creatinine 1.1 H GFR Calculation Not Reportable Glucose 279 H POC Glucose 420 278 Calculated Osmolal ity 291 Calcium 7.0 L Ionized Calcium Me as Total Bilirubin 0.2 AST 26 ALT 26 Alkaline Phosphata se 115 H Total Protein 6.2 L Albumin 2.5 L Globulin 3.7 Blood Type Rho(D) Type Antibody Screen Crossmatch 04/01/20 04/01/20 03/31/20 05:57 05:57 21:32 WBC 10.3 H RBC 3.44 L Hgb 8.6 L Hct 28.0 L MCV 81.4 MCH 25.0 L MCHC 30.7 RDW 17.1 H Plt Count 493 H MPV 10.7 H Neut % (Auto) 74.3 Lymph % (Auto) 16.3 Coles % (Auto) 7.0 Eos % (Auto) 0.8 Baso % (Auto) 0.3 Neut # (Auto) 7.69 Lymph # (Auto) 1.7 Coles # (Auto) 0.7 Eos # (Auto) 0.1 Baso # (Auto) 0.0 Nucleated RBC % (a uto) 0 Nucleated RBCs # 0.0 Sodium Potassium Chloride Carbon Dioxide Anion Gap BUN Creatinine GFR Calculation Glucose POC Glucose 381 Calculated Osmolal ity Calcium Ionized Calcium Me as 1.0 L Total Bilirubin AST ALT Alkaline Phosphata se Total Protein Albumin Globulin Blood Type Rho(D) Type Antibody Screen Crossmatch 03/31/20 03/31/20 03/31/20 17:08 15:06 14:39 WBC RBC Hgb Hct MCV MCH MCHC RDW Plt Count MPV Neut % (Auto) Lymph % (Auto) Coles % (Auto) Eos % (Auto) Baso % (Auto) Neut # (Auto) Lymph # (Auto) Coles # (Auto) Eos # (Auto) Baso # (Auto) Nucleated RBC % (a uto) Nucleated RBCs # Sodium Potassium Chloride Carbon Dioxide Anion Gap BUN Creatinine GFR Calculation Glucose POC Glucose 446 438 Calculated Osmolal ity Calcium Ionized Calcium Me as Total Bilirubin AST ALT Alkaline Phosphata se Total Protein Albumin Globulin Blood Type A Positive Rho(D) Type Positive Antibody Screen Negative Crossmatch See Detail Vitals: Last Vital Signs Temp 98.8 F 04/01/20 11:20 Pulse 62 04/01/20 11:20 Resp 18 04/01/20 11:20 BP 157/71 09/03/20 11:20 Pulse Ox 98 04/01/20 11:20 Discharge Plan Discharge Patient Disposition: Home Health Service Condition: Stable Prescriptions: New pantoprazole 40 mg Tablet,Delayed Release (Dr/Ec) 40 mg PO BID 30 Days Qty: 60 RF: 0 Continued citalopram 10 mg Tablet 10 mg PO BID RF: 0 amlodipine 5 mg tablet 5 mg PO DAILY RF: 0 pioglitazone 30 mg tablet 30 mg PO DAILY RF: 0 levothyroxine 150 mcg tablet 150 mcg PO DAILY RF: 0 glipizide 10 mg Tablet Extended Release 24hr 10 mg PO DAILY RF: 0 cyanocobalamin (vitamin B-12) [Vitamin B-12] 1,000 mcg Tablet 1,000 mcg PO DAILY RF: 0 lovastatin 10 mg Tablet 10 mg PO QPM RF: 0 gabapentin 300 mg Capsule 300 mg PO BID RF: 0 allopurinol 100 mg Tablet 100 mg PO DAILY RF: 0 carvedilol 3.125 mg Tablet 3.125 mg PO Q12H Qty: 60 RF: 0 calcitriol 0.25 mcg Capsule 0.5 mcg PO DAILY Qty: 30 RF: 0 Discontinued warfarin 3 mg tablet 3 mg PO . COMPLEX RF: 0 warfarin 2 mg tablet See Rx Instructions .ROUTE .COMPLEX RF: 0 Discharge Orders: Discharge Order (Routine); Ordered 04/01/20 Ordered By: Stephanie Feng Other Ambulatory Orders: Hemoglobin and Hematocrit (Routine) Timeframe: 1 Week Location: Determined by Patient Ordered By: Stephanie Feng Referrals: [facility] [Outside] Mercedes Lawrence PA [Primary Care Provider] - 4-7 days (hospital discharge follow up ) Discharge Diet: Usual diet Discharge Activity: Resume usual activity and As per PT/OT instructions Discharge Attestations Time Spent in Discharge Care*: greater than 30 min Status at Discharge: Cognitive status at discharge: cognitively intact, Behavioral status at discharge: cooperative, Quality Metrics Clinical Quality Measures During this hospital stay, did patient experience: None Coding Level of Care Code Acute Cancer Registrar for Iqra Fwd Diagnoses Left wrist pain M25.532 Upper GI bleed K92.2 Supratherapeutic INR R79.1 Melena K92.1 Acute kidney injury N17.9 Type 2 diabetes mellitus E11.9 Diabetes mellitus ferry terminal supervisor insulin use: without half-way use Diabetes mellitus complication status: without complication Hypocalcemia E83.51 Community acquired pneumonia J18.9 Laterality: right Lung location: upper lobe of lung
[2020-04-01 16:59] LABS: Glucose Point of Care 247 mg/dL (70-110)
[2020-04-01] MEDS: atorvastatin 40 mg Tablet 20 MG PO (18:16)
== END 2020-04-01 18:24 | disposition home health service (06) | DRG 377 ==
LOC: ER 18:11 → CSU 21:03 → ICU 22:14 → MEDSURG 03-24 15:40
PROVIDERS: Family Medicine; Internal Medicine; Surgery; Admitting Provider Internal Medicine; Emergency Provider Emergency Medicine; PCP Physician Assistant; Visit Provider Student in an Organized Health Care Education/Training Program
DX: K92.2 Gastrointestinal hemorrhage, unspecified (principal); J18.9 Pneumonia, unspecified organism; D62 Acute posthemorrhagic anemia; N17.9 Acute kidney failure, unspecified; E11.9 Type 2 diabetes mellitus without complications; I10 Essential (primary) hypertension; M10.9 Gout, unspecified; E53.8 Deficiency of other specified B group vitamins; E89.0 Postprocedural hypothyroidism; Z86.718 Personal history of other venous thrombosis and embolism; Z90.13 Acquired absence of bilateral breasts and nipples; K80.20 Calculus of gallbladder without cholecystitis without obstruction; R79.1 Abnormal coagulation profile; M25.532 Pain in left wrist; M79.89 Other specified soft tissue disorders; M11.232 Other chondrocalcinosis, left wrist; Z79.84 Long term (current) use of oral hypoglycemic drugs
CPT/HCPCS: 12345; 36415; 36416; 36430; 71045; 71275; 73110; 73200; 80053; 82310; 82330; 82962; 83605; 83615; 83735; 83970; 84100; 84550; 85014; 85018; 85025; 85384; 85610; 85730; 86140; 86403; 86850; 86900; 86920; 86927; 87040; 87426; 87449; 87804; 93971; 96372; 96375; 97110; 97116; 97124; 97162; 97166; 97530; 97535; 99283; C9113; J0456; J0610; J0696; J1170; J1650; J1815; J2270; J3430; J3475; J7050; J7512; J7799; P9016; P9017; Q9967

== ENCOUNTER → 2020-10-04 10:34 | Outpatient (BNVA) | payer MEDICARE, OTHER, SELFPAY | PROVIDERS: PCP Physician Assistant; Referring Provider Physician Assistant; Visit Provider Internal Medicine | DX: C73 Malignant neoplasm of thyroid gland (principal); E11.22 Type 2 diabetes mellitus with diabetic chronic kidney disease; N18.4 Chronic kidney disease, stage 4 (severe); E20.9 Hypoparathyroidism, unspecified; E89.0 Postprocedural hypothyroidism; I10 Essential (primary) hypertension; Z90.09 Acquired absence of other part of head and neck | CPT/HCPCS: 99205 ==

== ENCOUNTER → 2020-10-13 08:42 | Outpatient (BNVA) | payer MEDICARE, OTHER, SELFPAY | PROVIDERS: PCP Physician Assistant; Visit Provider Internal Medicine | DX: E11.9 Type 2 diabetes mellitus without complications (principal); I10 Essential (primary) hypertension; Z90.09 Acquired absence of other part of head and neck | CPT/HCPCS: 80053; 82310; 83036; 83970 ==

== ENCOUNTER → 2021-08-30 10:28 | Outpatient (BNVA) | payer MEDICARE, OTHER, SELFPAY | PROVIDERS: PCP Physician Assistant; Visit Provider Internal Medicine | DX: E11.22 Type 2 diabetes mellitus with diabetic chronic kidney disease (principal); N18.4 Chronic kidney disease, stage 4 (severe); E20.9 Hypoparathyroidism, unspecified; C73 Malignant neoplasm of thyroid gland | CPT/HCPCS: 99214 ==

== ENCOUNTER → 2022-02-27 11:45 | Outpatient (BNVA) | payer MEDICARE, OTHER, SELFPAY | PROVIDERS: PCP Physician Assistant; Visit Provider Internal Medicine | DX: E11.22 Type 2 diabetes mellitus with diabetic chronic kidney disease (principal); N18.4 Chronic kidney disease, stage 4 (severe); C73 Malignant neoplasm of thyroid gland; E20.9 Hypoparathyroidism, unspecified | CPT/HCPCS: 36415; 83036; 99214 ==

== ENCOUNTER → 2022-03-24 09:07 | Outpatient (BNVA) | payer MEDICARE, OTHER, SELFPAY | PROVIDERS: PCP Physician Assistant; Visit Provider Internal Medicine Nephrology | DX: N18.4 Chronic kidney disease, stage 4 (severe) (principal); E11.22 Type 2 diabetes mellitus with diabetic chronic kidney disease | CPT/HCPCS: 80048; 82043; 82310; 83970; 85025 ==

== ENCOUNTER → 2022-10-16 11:04 | Outpatient (BNVA) | payer MEDICARE, OTHER, SELFPAY | PROVIDERS: PCP Physician Assistant; Visit Provider Registered Nurse | DX: E11.22 Type 2 diabetes mellitus with diabetic chronic kidney disease (principal); N18.4 Chronic kidney disease, stage 4 (severe); E55.9 Vitamin D deficiency, unspecified | CPT/HCPCS: 80069; 82306; 82310; 83970; 85025 ==

== ENCOUNTER → 2022-10-17 11:10 | Outpatient (BNVA) | payer MEDICARE, OTHER, SELFPAY | PROVIDERS: PCP Physician Assistant; Visit Provider Nurse Practitioner | DX: E11.22 Type 2 diabetes mellitus with diabetic chronic kidney disease (principal); N18.4 Chronic kidney disease, stage 4 (severe) | CPT/HCPCS: 82043 ==

== ENCOUNTER → 2022-11-01 10:22 | Outpatient (BNVA) | payer MEDICARE, OTHER, SELFPAY | PROVIDERS: PCP Physician Assistant; Visit Provider Internal Medicine | DX: N18.32 Chronic kidney disease, stage 3b (principal) | CPT/HCPCS: 80069 ==

== ENCOUNTER → 2023-02-26 10:28 | Outpatient (BNVA) | payer MEDICARE, OTHER, SELFPAY | PROVIDERS: PCP Physician Assistant; Visit Provider Internal Medicine | DX: E11.22 Type 2 diabetes mellitus with diabetic chronic kidney disease; N18.4 Chronic kidney disease, stage 4 (severe); E78.2 Mixed hyperlipidemia | CPT/HCPCS: 80053; 80061; 82044; 83036; 99214 ==

== ENCOUNTER → 2023-06-13 10:31 | Outpatient (BNVA) | payer MEDICARE, OTHER, SELFPAY | PROVIDERS: PCP Physician Assistant; Visit Provider Internal Medicine | DX: N18.32 Chronic kidney disease, stage 3b (principal) | CPT/HCPCS: 80069; 82310; 83970; 84550; 85025 ==

== ENCOUNTER → 2023-06-14 12:45 | Outpatient (BNVA) | payer MEDICARE, OTHER, SELFPAY | PROVIDERS: PCP Physician Assistant; Visit Provider Internal Medicine | DX: N18.32 Chronic kidney disease, stage 3b (principal) | CPT/HCPCS: 82570; 84156 ==

== ENCOUNTER → 2024-02-27 10:55 | Outpatient (BNVA) | payer MEDICARE, OTHER, SELFPAY | PROVIDERS: PCP Physician Assistant; Visit Provider Internal Medicine | DX: E11.9 Type 2 diabetes mellitus without complications (principal); E11.22 Type 2 diabetes mellitus with diabetic chronic kidney disease; N18.4 Chronic kidney disease, stage 4 (severe); E78.2 Mixed hyperlipidemia; Z79.890 Hormone replacement therapy; C73 Malignant neoplasm of thyroid gland | CPT/HCPCS: 36415; 80053; 80061; 82044; 83036; 99214 ==